=== PATIENT | female | born 1960 | race Caucasian/White ===

== ENCOUNTER → 2018-04-22 16:25 | Outpatient (CLI) | payer MEDICARE, SELFPAY ==
[2016-11-09 15:38] VITALS: BMI 33.8
[2018-04-22 16:47] LABS: International Normalized Ratio 1.7; Prothrombin Time (Protime)PT. 20.4 SECONDS (11.7-14.9)
== END ==
PROVIDERS: Family Provider Family Medicine; PCP Family Medicine; Referring Provider Family Medicine; Visit Provider Family Medicine
DX: I82.90 Acute embolism and thrombosis of unspecified vein (principal)
CPT/HCPCS: 85610

== ENCOUNTER 2019-05-11 13:24 | Emergency (ER) | payer MEDICARE, MEDICAID, SELFPAY ==
[2019-05-11 13:24] VITALS: BP 151/78; PULSE 65; RESP 18; TEMP 35.9; O2SAT 94; BMI 35.9
--- NOTE | 2019-05-11 13:43 | ED.VIS.GEN ---
History of Present Illness Chief Complaint: Abscess Informant: Patient Onset: Weeks Current Severity: Moderate Maximum Severity: Moderate Narrative: Patient presents with abscess to the right axilla for the past 2 weeks. Last Reggie she states she poked it and got blood return. It is still painful and swollen. She is starting to notice a similar lesion in her left axilla. She denies fever or chills. No history of abscesses. She is currently on Coumadin. - Past Medical History (1) COPD (chronic obstructive pulmonary disease) Status: Chronic (2) Hypothyroid Status: Chronic (3) Osteoporosis Status: Chronic (4) VTE (venous thromboembolism) Status: Chronic Past Medical History - Allergies and Home Meds Allergies/Adverse Reactions: Allergies aspirin Allergy (Verified 05/11/19 13:26) Swelling,HIVES,THROAT SWELLING bupropion [From Wellbutrin] Allergy (Verified 05/11/19 13:26) Shortness of breath Primary Care Physician: Stew Berg MD [Primary Care Provider] - Prior records reviewed: Yes Smoking Status: Current every day smoker - Family History Maternal Family History: Reports: Heart Disease Review of Systems General: Denies: Chills, Fever Eyes: Denies: Visual changes - bilaterally ENT: Denies: Bilateral ear pain Cardiovascular: Denies: Chest pain Respiratory: Denies: Dyspnea, Cough Gastrointestinal: Denies: Abdominal pain, Nausea, Vomiting, Diarrhea Skin: Reports: Abscess Neurological: Denies: Headache, Weakness, Parasthesia Hematologic: Reports: Easy bleeding - Secondary to Coumadin. Denies: Easy bruising Allergy: Denies: Uticaria Physical Exam Vital Signs/Narrative: Vital Signs Temp Pulse Resp BP Pulse Ox 05/11/19 13:24 96.7 F L 65 18 151/78 H 94 Inital Vital Signs reviewed: Yes General: Well nourished, Well developed ENT: Moist mucous membranes Neck: Supple Cardiovascular: Regular rate, Regular rhythm Respiratory: No distress, CTA bilaterally Abdomen: Soft, Nontender Skin: - - 1 x 2 cm cutaneous abscess right axilla with fluctuance. No surrounding cellulitis. Small area of folliculitis of the left axilla. Neurological: Alert, Oriented x3 Psychological: Normal affect Diagnostic/Tx/Re-eval - Medical Decision Making Patient was given a dose of Bactrim and Keflex. Right axillary abscess was anesthetized with 1 cc of 1% lidocaine. Stab incision is made with a #11 blade. Loculations were broken up. I did get return of blood with very little pus. She does have a cavity noted. I believe she likely got this to drain on her own. Dressing is placed. She be treated with Bactrim and Keflex at home. She will check her INR again in 3 days. ED Disposition - Plan for ED Patient: Disposition: Home or Assisted Living Diagnosis: Abscess Instructions: ABSCESS, Incision and Drainage Prescriptions: Smz/Tmp Ds [Bactrim Ds] 1 tab PO BID #14 tab Transmission Status: Pending to [facility] Cephalexin [Keflex] 500 mg PO Q12 #14 cap Transmission Status: Pending to [facility] Referrals: Stew Berg MD [Primary Care Provider] - 1 Week if not improving
[2019-05-11] MEDS: Smz/Tmp Ds Tablet 1 TABLET PO (14:01)
[2019-05-11] MEDS: Cephalexin 500 MG Capsule PO (14:01)
[2019-05-11 14:12] VITALS: BP 148/82; PULSE 69; RESP 17; TEMP 36.6; O2SAT 94
[2019-05-11 14:27] VITALS: PULSE 70; RESP 16; O2SAT 94
== END 2019-05-11 14:30 | disposition home or self-care (01) ==
PROVIDERS: Emergency Provider Emergency Medicine; PCP Family Medicine
DX: L02.411 Cutaneous abscess of right axilla (principal); J44.9 Chronic obstructive pulmonary disease, unspecified; E03.9 Hypothyroidism, unspecified; M81.0 Age-related osteoporosis without current pathological fracture; Z86.718 Personal history of other venous thrombosis and embolism; Z79.01 Long term (current) use of anticoagulants; Z79.899 Other long term (current) drug therapy; F17.200 Nicotine dependence, unspecified, uncomplicated
CPT/HCPCS: 10060; 99283

== ENCOUNTER 2019-12-31 15:27 | Emergency (ER) | payer MEDICARE, MEDICAID, SELFPAY ==
[2019-12-31 15:28] VITALS: BP 108/59; PULSE 65; RESP 18; TEMP 36.4; O2SAT 100; BMI 36.5
--- NOTE | 2019-12-31 15:58 | CT_ITS ---
STUDY: CT CERVICAL SPINE WITHOUT CONTRAST REASON FOR EXAM: Female, 59 years old. FELL/HIT FACE/ON THINNERS. Hx of seizures, HTN, asthma and COPD RADIATION DOSAGE (If Supplied By Facility): CTDIvol = ( 18.65 ) mGy, DLP = ( 343.50 ) mGycm TECHNIQUE: High resolution transaxial imaging was performed without contrast material. Sagittal and coronal images were reconstructed. Individualized dose optimization techniques were used for this CT. COMPARISON: None FINDINGS: Normal craniovertebral junction. Normal anterior atlantoaxial articulation. Normal odontoid process. Normal cervical lordosis. Normal vertebral bodies and posterior osseous elements. C2-3: Normal endplates. Normal disc height and morphology. Normal central canal and intervertebral neuroforamina. C3-4: Normal endplates. Normal disc height and morphology. Normal central canal and intervertebral neuroforamina. C4-5: Mild broad disc osteophyte complex produces mild spinal stenosis but no neural foraminal stenosis. C5-6: 2 mm retrolisthesis of C5 on C6 with a mild broad disc osteophyte complex produces mild spinal stenosis and mild bilateral neural foraminal stenosis. C6-7: Normal endplates. Normal disc height and morphology. Normal central canal and intervertebral neuroforamina. C7-T1: Normal endplates. Normal disc height and morphology. Normal central canal and intervertebral neuroforamina. Normal visualized soft tissue structures. CT/Spine Cervical without Contras IMPRESSION: No acute fracture or subluxation. Electronically Signed: Ru Garcia MD at 16:50 EDT Tel , Service support ,
--- NOTE | 2019-12-31 15:58 | CT_ITS ---
STUDY: CT BRAIN WITHOUT CONTRAST REASON FOR EXAM: Female, 59 years old. FELL/HIT FACE/ON THINNERS. Hx of seizures, HTN, asthma and COPD RADIATION DOSAGE (If Supplied By Facility): CTDIvol = ( 44.99 ) mGy, DLP = ( 762.36 ) mGycm TECHNIQUE: Transaxial CT imaging of the brain was performed without administration of intravenous contrast material. Individualized dose optimization techniques were used for this CT. COMPARISON: No relevant priors. FINDINGS: Normal soft tissue structures. Normal calvarium. There is mild cerebral atrophy with widening of the extra-axial spaces and ventricular dilatation. There are areas of decreased attenuation within the white matter tracts of the supratentorial brain, consistent with microvascular disease changes. Normal basal ganglia and thalami. Normal brainstem. Normal cerebellum. There is no intracranial hemorrhage. There are no findings of an acute ischemic infarction. Normal visualized paranasal sinuses. CT/Brain/Head without Contrast IMPRESSION: Chronic involutional changes of the brain. Electronically Signed: Ru Garcia MD at 16:52 EDT Tel , Service support ,
--- NOTE | 2019-12-31 15:58 | CT_ITS ---
STUDY: CT FACIAL BONES WITHOUT CONTRAST REASON FOR EXAM: Female, 59 years old. FELL/HIT FACE/ON THINNERS. Hx of seizures, HTN, asthma and COPD RADIATION DOSAGE (If Supplied By Facility): CTDIvol = ( 29.38 ) mGy, DLP = ( 474.00 ) mGycm TECHNIQUE: The patient was scanned in a multi detector CT scanner. Sagittal and coronal images were reconstructed. Individualized dose optimization techniques were used for this CT. COMPARISON: None. FINDINGS: Normal soft tissue structures. Normal orbital de la rosa and orbital contents. Normal nasal bones and anterior nasal spine. Normal facial bones. There is no demonstrated fracture. Normal visualized paranasal sinuses. CT/Sinus/Facial Bone IMPRESSION: Normal unenhanced CT of the facial bones. Electronically Signed: Ru Garcia MD at 16:54 EDT Tel , Service support ,
--- NOTE | 2019-12-31 16:14 | ED.DCSUM_ITS ---
History of Present Illness Chief Complaint: Fall Informant: Patient Onset: Today Narrative: Patient presents for mechanical fall occurring half hour prior to arrival. Patient states she has unstable right knee with a follow-up pending with specialist this coming month. Reports walking to her neighbors when her knee gave out causing her to fall on the sidewalk. She states she hit her head and may have lost consciousness. Reports headache. Denies nausea and vomiting. Reports pain in right knee. 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 Her last INR check she reports to 3 months ago. Denies visual changes. No neck or back pain. No chest pains. No abdominal pain. Patient able to ambulate, came by private vehicle with her daughter. Prior similar symptoms: Yes Past Medical History - Allergies and Home Meds Allergies/Adverse Reactions: Allergies aspirin Allergy (Verified 12/31/19 15:28) Swelling,HIVES,THROAT SWELLING bupropion [From Wellbutrin] Allergy (Verified 12/31/19 15:28) Shortness of breath Primary Care Physician: Stew Berg MD [Primary Care Provider] - 3-5 Days Past Medical History: - - DVTs right lower extremity, hypertension, hypothyroidism, COPD, emphysema Smoking Status: Current every day smoker - Family History Maternal Family History: Reports: Heart Disease Review of Systems General: Denies: Chills, Fever, Sweats Eyes: Denies: Visual changes - bilaterally, Diplopia ENT: Denies: Rhinorrhea, Sore throat Cardiovascular: Denies: Chest pain, Palpitations Respiratory: Denies: Dyspnea, Cough, Dyspnea on exertion Gastrointestinal: Denies: Abdominal pain, Nausea, Vomiting, Diarrhea, Melena, Hematochezia Genitourinary: Denies: Dysuria, Hematuria, Frequency Musculoskeletal: Reports: Arthralgias, Extremity Pain. Denies: Back pain Skin: Denies: Rash, Wounds Neurological: Reports: Headache. Denies: Weakness, Numbness Physical Exam Vital Signs/Narrative: Vital Signs Temp Pulse Resp BP Pulse Ox 12/31/19 15:28 97.5 F L 65 18 108/59 L 100 Inital Vital Signs reviewed: Yes General: Well nourished, Well developed, No Acute Distress Head: Normocephalic, - - Small right frontal hematoma, abrasion across the nasal bridge, bleeding controlled. No proptosis or entrapment. No hemotympanum. Eyes: Perrl, EOMI ENT: Moist mucous membranes, No rhinorrhea, TM's clear Neck: Supple, Nontender Cardiovascular: Regular rate, Regular rhythm, No murmurs Respiratory: No distress, CTA bilaterally, Chest nontender, - - Symmetric breath sounds. Abdomen: Soft, Nontender, Nondistended, Normal bowel sounds Back: Nontender, Normal Inspection Extremities: No edema, - - Lower extremities negative logroll bilaterally. Right knee with patellar tenderness on palpation, small superficial abrasions noted. Negative varus and valgus. No deformities. Pulses intact distally. Skin: Normal color, No rash Neurological: Alert, Oriented x3, Cranial nerves II-XII grossly intact, Normal Strength, Normal Sensation Psychological: Normal affect, Normal Mood Diagnostic/Tx/Re-eval Abnormal Lab Results 12/31/19 12/31/19 12/31/19 16:20 16:20 16:20 WBC 7.1 RBC 4.95 Hgb 14.8 Hct 46.9 MCV 94.7 MCH 29.9 MCHC 31.6 L RDW Std Deviation 50.9 H RDW Coeff of Nessa 14.6 Plt Count 219 MPV 10.4 Immature Gran % (Auto) 0.000 Neut % (Auto) 50.4 Lymph % (Auto) 40.3 [place] % (Auto) 5.6 Eos % (Auto) 2.9 Baso % (Auto) 0.8 Absolute Neuts (auto) 3.6 Absolute Lymphs (auto) 2.87 Nucleated RBC % 0 PT 19.2 H INR 1.7 APTT 48.2 H Sodium 142 Potassium 4.2 Chloride 111 H Carbon Dioxide 28.0 Anion Gap 3 L BUN 11 Creatinine 1.06 H Estim Creat Clear Calc 40.03 Est GFR (MDRD) Af Amer 68 Est GFR (MDRD) Non-Af 56 L BUN/Creatinine Ratio 10.4 Glucose 107 H Calcium 9.0 - Medical Decision Making Patient on warfarin with head injury. Treated with fentanyl IV for pain symptoms. There is no focal deficits. CT face head and neck ordered pending critical access hospital read. Her right knee x-ray 4 views reviewed by myself shows no fracture or dislocation. INR slightly subtherapeutic 1.7. Basic labs are stable. Reggie wrap to the right knee, abrasion cleaned with bacitracin by nursing, wound care discussed. Concussion precautions. Pending final read prior to discharge. CT results are negative for any acute process. Discharged with outpatient follow-up. Patient use Tylenol as needed for headache symptoms. ED Disposition - Plan for ED Patient: Diagnosis: Concussion with loss of consciousness <= 30 min, Facial contusion, Contusion of right knee Instructions: ED Concussion, ED SOFT TISSUE CONTUSION, ED CONTUSION Face No Wake Up] Referrals: Stew Berg MD [Primary Care Provider] - 3-5 Days Additional Instructions: INR 1.7.
[2019-12-31] MEDS: fentaNYL 100 MCG/2 ML Ampul 25 MCG IV (16:24)
--- NOTE | 2019-12-31 16:35 | RAD_ITS ---
STUDY: X-RAY - RIGHT KNEE REASON FOR EXAM: Female, 59 years old. FALL, PAIN AND WEAKNESS IN KNEE TECHNIQUE: 4 view(s) of the knee. COMPARISON: 07/02/2016 FINDINGS: Normal visualized distal femur. Normal visualized proximal tibia and fibula. Normal proximal tibiofibular articulation. Normal medial femorotibial compartment. Normal lateral femorotibial compartment. Normal patellofemoral articulation. The soft tissue structures are unremarkable. RAD/Knee 4 or More Views IMPRESSION: Normal x-ray examination of the knee. Electronically Signed: Ru Garcia MD at 16:55 EDT Tel , Service support ,
[2019-12-31 16:41] LABS: Absolute Lymphocyte Count 2.87 X10^3/uL (0.83-4.51); Absolute Neutrophil Count 3.6 X10^3/uL (2.0-7.7); Basophil# 0.06 X10^3/uL; Basophil% 0.8 % (0-1); Eosinophil# 0.21 X10^3/uL; Eosinophils% 2.9 % (0-5); Hematocrit 46.9 % (37-47); Hemoglobin 14.8 g/dL (12.0-15.0); Lymphocyte # 2.87 X10^3/ul (4.0); Lymphocyte % 40.3 % (19-41); Mean Corp Hgb Conc 31.6 g/dL (32-36); Mean Corpuscular Hgb 29.9 pg (27.0-32.0); Mean Corpuscular Volume 94.7 fL (81-99); Mean Platelet Vol. 10.4 fl (6.2-12.0); Monocyte% 5.6 % (0-10); NRBC Flagged by Analyzer 0 % (0-5); Neutrophil # 3.58 X10^3/uL (2.7-7.7); Neutrophil % 50.4 % (47-70); Platelet Count 219 K/mm3 (150-450); RBC Distribution Width CV 14.6 % (11.6-14.6); RBC Distribution Width SD 50.9 fl (35.1-43.9); Red Blood Count 4.95 M/mm3 (4.2-5.4); White Blood Count 7.1 K/mm3 (4.4-11.0)
[2019-12-31 16:42] LABS: Anion Gap 3 (5-15); BUN 11 mg/dL (7-18); BUN/Creat Ratio 10.4 RATIO (10-20); Chloride 111 mmol/L (98-107); Creatinine, Serum 1.06 mg/dL (0.55-1.02); EST Glomerular Filtration Rate 56 mL/min (>60); Est Glom Filt Rate - Afr Amer 68 mL/min (>60); Estimated Creatinine Clearance 40.03 ml/min; Glucose 107 mg/dL (74-106); Potassium 4.2 mmol/L (3.5-5.1); Sodium Level 142 mmol/L (136-145)
[2019-12-31 16:48] LABS: International Normalized Ratio 1.7; Partial Thromboplast Time 48.2 Seconds (24.1-36.2); Prothrombin Time (Protime)PT. 19.2 SECONDS (11.7-14.9)
[2019-12-31 17:19] VITALS: BP 142/66; PULSE 74; RESP 15; O2SAT 98
[2019-12-31] MEDS: BACITRACIN 15 GM Tube 1 APPLIC TOPICAL (17:21)
== END 2019-12-31 17:21 | disposition home or self-care (01) ==
PROVIDERS: Emergency Provider Emergency Medicine; PCP Family Medicine
DX: S06.0X1A Concussion with loss of consciousness of 30 minutes or less, initial encounter (principal); S00.83XA Contusion of other part of head, initial encounter; S00.31XA Abrasion of nose, initial encounter; S80.01XA Contusion of right knee, initial encounter; S80.211A Abrasion, right knee, initial encounter; W19.XXXA Unspecified fall, initial encounter; Y93.9 Activity, unspecified; Y92.9 Unspecified place or not applicable; I10 Essential (primary) hypertension; E03.9 Hypothyroidism, unspecified; J44.9 Chronic obstructive pulmonary disease, unspecified; Z86.718 Personal history of other venous thrombosis and embolism; Z79.01 Long term (current) use of anticoagulants; Z79.899 Other long term (current) drug therapy; F17.200 Nicotine dependence, unspecified, uncomplicated
CPT/HCPCS: 70450; 70486; 72125; 73564; 80048; 85025; 85610; 85730; 96374; 99283; A4216

== ENCOUNTER 2020-01-25 14:12 | Emergency (ER) | payer MEDICARE, MEDICAID, SELFPAY ==
[2020-01-25 14:13] VITALS: BP 152/79; PULSE 59; RESP 16; TEMP 36.7; O2SAT 100; BMI 35.9
--- NOTE | 2020-01-25 15:48 | EKG12_ITS ---
Test Reason : DIZZINESS Blood Pressure : / mmHG Vent. Rate : 059 BPM Atrial Rate : 059 BPM P-R Int : 180 ms QRS Dur : 072 ms QT Int : 436 ms P-R-T Axes : 070 064 060 degrees QTc Int : 431 ms Sinus bradycardia Otherwise normal ECG Confirmed by DHARA CATALAN, JOAQUÍN ([id number]), clinical editor HANDY PEACOCK ([id number]) on 01/27/2020 10:47:31 AM Referred By: OTIS Confirmed By:JOAQUÍN JULES MD
--- NOTE | 2020-01-25 15:49 | ED.VIS.GEN ---
History of Present Illness Chief Complaint: Dizziness Informant: Patient Onset: Yesterday Current Severity: Moderate Maximum Severity: Moderate Narrative: Patient presents with lightheadedness and dizziness that started yesterday. She states she also has noticed her sense of smell was off yesterday. For the past couple of days she has had nausea with vomiting. She also reports urinary frequency but no dysuria. She denies fever or chills. She does report increased shortness of breath over baseline. She does have a history of emphysema and COPD. - Past Medical History (1) COPD (chronic obstructive pulmonary disease) Status: Chronic (2) Hypothyroid Status: Chronic (3) VTE (venous thromboembolism) Status: Chronic Past Medical History - Allergies and Home Meds Allergies/Adverse Reactions: Allergies aspirin Allergy (Verified 01/25/20 14:16) Swelling,HIVES,THROAT SWELLING bee venom protein (honey bee) Allergy (Verified 01/25/20 14:16) Hives bupropion [From Wellbutrin] Allergy (Verified 01/25/20 14:16) Shortness of breath Primary Care Physician: Stew Berg MD [Primary Care Provider] - 1 Week if not improving Prior records reviewed: Yes Smoking Status: Current every day smoker - Family History Maternal Family History: Reports: Heart Disease Review of Systems General: Denies: Chills, Fever Eyes: Denies: Visual changes - bilaterally ENT: Reports: - - Altered sense of smell. Denies: Bilateral ear pain Cardiovascular: Denies: Chest pain Respiratory: Reports: Dyspnea, Cough Gastrointestinal: Reports: Nausea, Vomiting. Denies: Abdominal pain Genitourinary: Reports: Frequency. Denies: Dysuria Musculoskeletal: Denies: Extremity Pain Skin: Denies: Rash Neurological: Denies: Headache Hematologic: Denies: Easy bruising, Easy bleeding Allergy: Denies: Uticaria Physical Exam Vital Signs/Narrative: Vital Signs Temp Pulse Resp BP Pulse Ox 01/25/20 14:13 98.1 F 59 L 16 152/79 H 100 Inital Vital Signs reviewed: Yes General: Well nourished, Well developed Head: Normocephalic ENT: Moist mucous membranes Neck: Supple Cardiovascular: Regular rate, Regular rhythm Respiratory: No distress, CTA bilaterally Abdomen: Soft, Nontender, Normal bowel sounds Extremities: Nontender Skin: Normal color Neurological: Alert, Oriented x3 Psychological: Normal affect Diagnostic/Tx/Re-eval Impressions Chest X-Ray 01/25/20 16:30 IMPRESSION: Normal x-ray examination of the chest. Electronically Signed: Heather Gordon, at 17:21 EST Tel , Service support , 01/25/20 16:30 Chest 1 View (Portable) [RAD] Stat Laboratory Results 01/25/20 01/25/20 01/25/20 16:00 16:00 16:00 WBC 7.6 RBC 4.93 Hgb 14.7 Hct 45.4 MCV 92.1 MCH 29.8 MCHC 32.4 RDW Std Deviation 45.7 H RDW Coeff of Nessa 13.4 Plt Count 196 MPV 10.5 Immature Gran % (Auto) 0.100 Neut % (Auto) 49.9 Lymph % (Auto) 40.0 [place] % (Auto) 6.2 Eos % (Auto) 2.9 Baso % (Auto) 0.9 Absolute Neuts (auto) 3.8 Absolute Lymphs (auto) 3.02 Nucleated RBC % 0 PT 23.5 H INR 2.2 Sodium 138 Potassium 4.5 Chloride 106 Carbon Dioxide 27.0 Anion Gap 5 BUN 14 Creatinine 0.95 Estim Creat Clear Calc 44.67 Est GFR (MDRD) Af Amer 77 Est GFR (MDRD) Non-Af 63 BUN/Creatinine Ratio 14.7 Glucose 80 Calcium 8.9 Urine Color Urine Clarity Urine pH Ur Specific [place] Urine Protein Urine Glucose (UA) Urine Ketones Urine Occult Blood Urine Nitrite Urine Bilirubin Urine Urobilinogen Ur Leukocyte Esterase Urine RBC Urine WBC Ur Squamous Epith Cells Urine Bacteria Urine Mucus 01/25/20 17:07 WBC RBC Hgb Hct MCV MCH MCHC RDW Std Deviation RDW Coeff of Nessa Plt Count MPV Immature Gran % (Auto) Neut % (Auto) Lymph % (Auto) [place] % (Auto) Eos % (Auto) Baso % (Auto) Absolute Neuts (auto) Absolute Lymphs (auto) Nucleated RBC % PT INR Sodium Potassium Chloride Carbon Dioxide Anion Gap BUN Creatinine Estim Creat Clear Calc Est GFR (MDRD) Af Amer Est GFR (MDRD) Non-Af BUN/Creatinine Ratio Glucose Calcium Urine Color Straw Urine Clarity Sl Cldy Urine pH 6.0 Ur Specific [place] 1.010 Urine Protein Negative Urine Glucose (UA) Normal Urine Ketones Negative Urine Occult Blood 10 H Urine Nitrite Negative Urine Bilirubin Negative Urine Urobilinogen Normal Ur Leukocyte Esterase 500 H Urine RBC 0 SEEN Urine WBC 10-25 SEEN Ur Squamous Epith Cells 0-5 SEEN Urine Bacteria 1+ Urine Mucus 0 SEEN - EKG Initial EKG Interpretation: Sinus Bradycardia - Sinus bradycardia 59 bpm. No acute ischemia. - Medical Decision Making Test results discussed with the patient. She does have evidence of UTI and is given Bactrim. She will get a prescription for the same. Covid test was sent. If this is positive she will be notified. She will quarantine in the meantime. ED Disposition - Plan for ED Patient: Disposition: Home or Assisted Living Diagnosis: UTI (urinary tract infection), Viral syndrome Instructions: ED CYSTITIS Female Adult, ED Viral Syndrome Prescriptions: Smz/Tmp Ds [Bactrim Ds] 1 tab PO BID #10 tab Transmission Status: Pending to [facility] Referrals: Stew Berg MD [Primary Care Provider] - 1 Week if not improving
[2020-01-25 16:14] VITALS: BP 133/69; PULSE 59; RESP 19; TEMP 36.4; O2SAT 99
[2020-01-25] MEDS: Ondansetron 4 MG/2 ML Vial IV (16:22)
[2020-01-25 16:24] LABS: Absolute Lymphocyte Count 3.02 X10^3/uL (0.83-4.51); Absolute Neutrophil Count 3.8 X10^3/uL (2.0-7.7); Basophil# 0.07 X10^3/uL; Basophil% 0.9 % (0-1); Eosinophil# 0.22 X10^3/uL; Eosinophils% 2.9 % (0-5); Hematocrit 45.4 % (37-47); Hemoglobin 14.7 g/dL (12.0-15.0); Lymphocyte # 3.02 X10^3/ul (4.0); Mean Corp Hgb Conc 32.4 g/dL (32-36); Mean Corpuscular Hgb 29.8 pg (27.0-32.0); Mean Corpuscular Volume 92.1 fL (81-99); Mean Platelet Vol. 10.5 fl (6.2-12.0); Monocyte# 0.47 X10^3/uL; Monocyte% 6.2 % (0-10); NRBC Flagged by Analyzer 0 % (0-5); Neutrophil # 3.76 X10^3/uL (2.7-7.7); Neutrophil % 49.9 % (47-70); Platelet Count 196 K/mm3 (150-450); RBC Distribution Width CV 13.4 % (11.6-14.6); RBC Distribution Width SD 45.7 fl (35.1-43.9); Red Blood Count 4.93 M/mm3 (4.2-5.4); White Blood Count 7.6 K/mm3 (4.4-11.0)
--- NOTE | 2020-01-25 16:30 | RAD_ITS ---
STUDY: X-RAY CHEST REASON FOR EXAM: Female, 59 years old. DIZZINESS, NAUSEA X1 MONTH, EMESIS X1 TODAY, TASTE BLOOD IN MOUTH. INC SOB. TECHNIQUE: Frontal view of the chest COMPARISON: 15 February 2016 FINDINGS: The lungs are clear and expanded. There is no demonstrated pleural abnormality. Normal size heart. Normal mediastinum and vilma. Normal visualized pulmonary arteries. Normal visualized aortic arch and descending thoracic aorta. Normal visualized thoracic spine. Normal visualized ribs, clavicles, and shoulders. There is no demonstrated abnormality of the visualized soft tissue structures of the upper abdomen. RAD/Chest 1 View (Portable) IMPRESSION: Normal x-ray examination of the chest. Electronically Signed: Heather Gordon, at 17:21 EST Tel , Service support ,
[2020-01-25 16:33] LABS: International Normalized Ratio 2.2; Prothrombin Time (Protime)PT. 23.5 SECONDS (11.7-14.9)
[2020-01-25 16:44] LABS: Anion Gap 5 (5-15); BUN 14 mg/dL (7-18); BUN/Creat Ratio 14.7 RATIO (10-20); Calcium,Total 8.9 mg/dL (8.5-10.1); Chloride 106 mmol/L (98-107); Creatinine, Serum 0.95 mg/dL (0.55-1.02); EST Glomerular Filtration Rate 63 mL/min (>60); Est Glom Filt Rate - Afr Amer 77 mL/min (>60); Estimated Creatinine Clearance 44.67 ml/min; Glucose 80 mg/dL (74-106); Potassium 4.5 mmol/L (3.5-5.1); Sodium Level 138 mmol/L (136-145)
[2020-01-25 17:16] VITALS: BP 109/59; PULSE 60; RESP 14; TEMP 36.6; O2SAT 97
[2020-01-25 17:24] LABS: Mucous, Urine 0 SEEN /hpf (<or=2+); Red Blood Cells-Urine 0 SEEN /hpf (0-5)
[2020-01-25 17:35] LABS: Color, Urine Straw (Yellow); Glucose, Dipstick Normal (Normal); Ketone-Dipstick Negative (Negative); Leukocyte Esterase-Dipstick 500 /ul (Negative); Nitrite-Dipstick Negative (Negative); Occult Blood-Urine 10 /ul (Negative); Protein-Dipstick Negative (Negative); Urine Bilirubin Dipstick Negative (Negative); Urine Urobilinogen Normal (Normal)
[2020-01-25 17:44] LABS: Bacteria 1+ /hpf (None Seen); Squamous Epithelial Cells - UA 0-5 SEEN /hpf (5-10); White Blood Cells 10-25 SEEN /hpf (0-5)
[2020-01-25 17:45] LABS: Urine Clarity Sl Cldy (Clear)
[2020-01-25 18:25] VITALS: BP 107/60; PULSE 58; RESP 14; O2SAT 98
[2020-01-25] MEDS: Smz/Tmp Ds Tablet 1 TABLET PO (18:30)
== END 2020-01-25 18:55 | disposition home or self-care (01) ==
PROVIDERS: Emergency Provider Emergency Medicine; PCP Family Medicine
DX: N39.0 Urinary tract infection, site not specified (principal); B34.9 Viral infection, unspecified; E03.9 Hypothyroidism, unspecified; J44.9 Chronic obstructive pulmonary disease, unspecified; Z86.718 Personal history of other venous thrombosis and embolism; Z79.01 Long term (current) use of anticoagulants; Z79.899 Other long term (current) drug therapy; F17.200 Nicotine dependence, unspecified, uncomplicated
CPT/HCPCS: 71045; 80048; 81001; 85025; 85610; 87635; 93005; 96361; 96374; 99285; J2405; U0002

== ENCOUNTER 2020-06-04 18:08 | Emergency (ER) | payer MEDICARE, MEDICAID, SELFPAY ==
[2020-06-04 18:09] VITALS: BP 147/87; PULSE 63; RESP 18; TEMP 36; O2SAT 98; BMI 34.6
--- NOTE | 2020-06-04 18:42 | CT_ITS ---
STUDY: CTA CHEST REASON FOR EXAM: Female, 60 years old. Hemoptysis RADIATION DOSAGE (If Supplied By Facility): CTDIvol = ( 11.20 ) mGy, DLP = ( 414.73 ) mGycm TECHNIQUE: The examination was performed with the intravenous administration of IV 100mL Isovue-370. Post-processing of the angiographic images was performed, with multiplanar reformation and 3D reconstruction. Individualized dose optimization techniques were used for this CT. COMPARISON: None. FINDINGS: Normal enhancement of the main pulmonary artery and right and left pulmonary arteries. Normal enhancement of the bilateral peripheral pulmonary arteries. There is no demonstrated pulmonary embolism. Minor atherosclerotic changes of the aorta without evidence for aneurysm There is no demonstrated aortic dissection. Normal heart and pericardium. Normal mediastinum. Normal hilar regions. Normal visualized trachea and bronchi. The lungs are well expanded. Minor atelectasis within the dependent portion of the lower lobes. No focal infiltration or pulmonary nodule Normal pleura. Normal chest wall structures. Dorsal spine demonstrates mild degenerative change Liver is fatty infiltrated. 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 Cholelithiasis without evidence for acute cholecystitis CT/CTA Chest W/WO Contrast IMPRESSION: Minor atelectasis within the dependent portion of the lungs. No focal infiltration.. No evidence for pulmonary embolus Electronically Signed: Amrit Cunha MD at 20:31 EDT , Service support ,
[2020-06-04 18:43] VITALS: O2SAT 96
--- NOTE | 2020-06-04 18:43 | EKG12_ITS ---
Test Reason : CHEST PAIN Blood Pressure : / mmHG Vent. Rate : 064 BPM Atrial Rate : 064 BPM P-R Int : 176 ms QRS Dur : 068 ms QT Int : 394 ms P-R-T Axes : 081 079 067 degrees QTc Int : 406 ms Normal sinus rhythm Low voltage QRS Borderline ECG Confirmed by DAHRA CATALAN, JOAQUÍN ([id number]), video tape editor ZEHRA SOTELO ([id number]) on 06/08/2020 7:47:13 AM Referred By: SWAG Confirmed By:JOAQUÍN JULES MD
[2020-06-04 19:04] LABS: Absolute Neutrophil Count 4.3 X10^3/uL (2.0-7.7); Basophil# 0.06 X10^3/uL; Basophil% 0.8 % (0-1); Eosinophil# 0.19 X10^3/uL; Eosinophils% 2.4 % (0-5); Hematocrit 42.7 % (37-47); Hemoglobin 13.9 g/dL (12.0-15.0); Lymphocyte % 35.8 % (19-41); Mean Corp Hgb Conc 32.6 g/dL (32-36); Mean Corpuscular Hgb 30.4 pg (27.0-32.0); Mean Corpuscular Volume 93.4 fL (81-99); Mean Platelet Vol. 9.9 fl (6.2-12.0); Monocyte# 0.48 X10^3/uL; Monocyte% 6.1 % (0-10); NRBC Flagged by Analyzer 0 % (0-5); Neutrophil # 4.26 X10^3/uL (2.7-7.7); Neutrophil % 54.5 % (47-70); Platelet Count 213 K/mm3 (150-450); RBC Distribution Width CV 13.2 % (11.6-14.6); RBC Distribution Width SD 45.1 fl (35.1-43.9); Red Blood Count 4.57 M/mm3 (4.2-5.4); White Blood Count 7.8 K/mm3 (4.4-11.0)
--- NOTE | 2020-06-04 19:07 | ED.VISSUMM ---
- ER Visit Summary Date of Service: 06/04/20 Chief Complaint: Cough chest pain History of Present Illness: The patient is a 60 F who presents with cough and chest pain that has been getting worse over the past couple days. Patient describes the pain is burning. Patient states it is over the right side of her chest. Patient states nothing makes it better or worse. Patient admits to a cough with some dark green sputum. Patient also noted some occasional blood in her sputum. Patient also admits to some lightheadedness and palpitations. Patient denies any diaphoresis. Patient admits to nausea but denies any vomiting. Patient admits to subjective chills but denies any fevers. Patient also admits to mild headache. Patient is a smoker. Patient has a history of DVT and is on Coumadin. Physical Examination: Vital signs are stable. Patient is afebrile. Patient is in no acute distress. Oral mucosa is pink and moist. Neck is supple. Trachea is midline. There is no JVD. Heart was regular rate and rhythm. Lungs are clear and equal bilaterally. There is good respiratory effort. Abdomen is soft. Bowel sounds are normal. There is no tenderness. Extremities are intact. There is no calf tenderness or edema. Cranial nerves II through XII are intact. There are no focal motor or sensory deficits noted. Test Results: EKG was obtained. On my interpretation, it showed a normal sinus rhythm with a rate of 64. HI interval, QRS interval, and QTc intervals were all normal. [place] was normal. There are no acute ST or T wave changes. CBC and basic metabolic profile were obtained and were essentially within normal limits. PT with INR was slightly supratherapeutic at 3.6. PTT was 87.4. Troponin was normal. COVID-19 rapid antigen was obtained and was negative. CTA of the chest was obtained. There is no evidence of pulmonary embolism. There is no mass noted. There is some atelectasis in the lower lobes. There is no acute infiltrate. This was interpreted by the radiologist and reviewed by myself. Emergency Department Course and Treatment: Patient was not given any aspirin due to her allergy. Patient was advised of her findings. Patient was feeling better on reevaluation. Patient was instructed to hold her dose of Coumadin tomorrow and then restart on Saturday. Patient was instructed to follow-up with her primary care physician in 5 to 7 days. Patient understood and was agreeable with the plan. All questions were answered. Disposition: Discharge home Impression: 1. Bronchitis 2. Hemoptysis This note was generated with [employer] dictation software. It may contain incorrect words, spelling, and punctuation that were not noted in review of the chart prior to signing ED Disposition - Plan for ED Patient: Disposition: Home or Assisted Living Diagnosis: Bronchitis, Hemoptysis, unspecified Diagnosis: (Ruled Out): Narcotic overdose, Forehead laceration, Chin laceration Instructions: ED Bronchitis, No Antibiotic (Adult), ED Hemoptysis Referrals: Stew Berg MD [Primary Care Provider] - 5-7 Days
[2020-06-04 19:23] LABS: Anion Gap 4 (5-15); BUN 25 mg/dL (7-18); BUN/Creat Ratio 25.1 RATIO (10-20); Calcium,Total 9.2 mg/dL (8.5-10.1); Chloride 108 mmol/L (98-107); EST Glomerular Filtration Rate 60 mL/min (>60); Est Glom Filt Rate - Afr Amer 73 mL/min (>60); Glucose 84 mg/dL (74-106); Potassium 3.9 mmol/L (3.5-5.1); Sodium Level 139 mmol/L (136-145)
[2020-06-04 19:25] LABS: International Normalized Ratio 3.6; Prothrombin Time (Protime)PT. 34.9 SECONDS (11.7-14.9)
[2020-06-04 19:27] LABS: Partial Thromboplast Time 87.4 Seconds (24.1-36.2)
[2020-06-04 20:24] VITALS: BP 133/68; PULSE 59; RESP 16; O2SAT 96
[2020-06-04 20:53] VITALS: BP 133/68
== END 2020-06-04 20:56 | disposition home or self-care (01) ==
LOC: ED 19:17
PROVIDERS: Emergency Provider Emergency Medicine; PCP Family Medicine
DX: J40 Bronchitis, not specified as acute or chronic (principal); J44.0 Chronic obstructive pulmonary disease with (acute) lower respiratory infection; R04.2 Hemoptysis; J98.11 Atelectasis; R79.1 Abnormal coagulation profile; E66.9 Obesity, unspecified; I10 Essential (primary) hypertension; M81.0 Age-related osteoporosis without current pathological fracture; Z86.718 Personal history of other venous thrombosis and embolism; Z85.71 Personal history of Hodgkin lymphoma; Z79.01 Long term (current) use of anticoagulants; Z79.899 Other long term (current) drug therapy; F17.200 Nicotine dependence, unspecified, uncomplicated
CPT/HCPCS: 71275; 80048; 84484; 85025; 85610; 85730; 87426; 93005; 99284; Q9967; A4216

== ENCOUNTER 2020-06-07 12:52 | Observation (INO) | payer MEDICARE, MEDICAID, SELFPAY ==
[2020-06-07] VITALS (15 sets, daily range): BP systolic 103–136; BP diastolic 55–76; PULSE 63–89; RESP 13–19; TEMP 36.4–37.1; O2SAT 95–98; BMI 33.6; BMI 33.5
--- NOTE | 2020-06-07 13:11 | EKG12_ITS ---
Test Reason : STROKE Blood Pressure : / mmHG Vent. Rate : 078 BPM Atrial Rate : 078 BPM P-R Int : 158 ms QRS Dur : 064 ms QT Int : 364 ms P-R-T Axes : 077 068 064 degrees QTc Int : 414 ms Normal sinus rhythm Low voltage QRS Borderline ECG Confirmed by VALENTINA CATALAN, LEÓN ([id number]), desk editor HANDY PEACOCK ([id number]) on 06/10/2020 2:55:15 PM Referred By: ARLET Confirmed By:LANDEN MONTGOMERY MD
--- NOTE | 2020-06-07 13:11 | CT_ITS ---
STUDY: CT BRAIN WITHOUT CONTRAST REASON FOR EXAM: Female, 60 years old. Confusion RADIATION DOSAGE (If Supplied By Facility): CTDIvol = ( 44.99 ) mGy, DLP = ( 779.24 ) mGycm TECHNIQUE: Transaxial CT imaging of the brain was performed without administration of intravenous contrast material. Individualized dose optimization techniques were used for this CT. COMPARISON: 12/31/2019 FINDINGS: Normal soft tissue structures. Normal calvarium. Normal size ventricles and extra-axial spaces for the patient''s age. Normal white matter tracts of the cerebral hemispheres. Normal basal ganglia and thalami. Normal brainstem. Normal cerebellum. There is no intracranial hemorrhage. There are no findings of an acute ischemic infarction. Normal visualized paranasal sinuses. CT/Brain/Head without Contrast IMPRESSION: Chronic involutional changes of the brain. No acute hemorrhage or significant interval change Electronically Signed: Onesimo Avery MD at 13:49 EDT , Service support ,
--- NOTE | 2020-06-07 13:15 | ED.VISSUMM ---
- ER Visit Summary Date of Service: 06/07/20 Chief Complaint: Confusion and headache History of Present Illness: The patient is a 60 F who presents with confusion and headache that began today. Patient states that she woke up with her headache today. Patient states it was stabbing and generalized. Patient states it was severe. Patient is confused about the day and month. Patient does not think she took her medications today. Patient does not remember much about this morning. Patient denies any chest pain or shortness of breath. Patient states she did have an episode of nausea and vomiting. Patient denies any hematemesis or coffee-ground emesis. Patient states her emesis was stomach contents. Patient denies any dysuria or hematuria. Patient denies any fevers or chills. Physical Examination: Vital signs are stable. Patient is afebrile. Patient is in no acute distress. Patient is awake, alert, and oriented to person, place, and year. Patient is not oriented to month or date. Cranial nerves II through XII are intact. Strength is 5/5 bilaterally in the upper and lower extremities. There are no sensory deficits noted. Pupils are equal, round, and reactive to light bilaterally. Extraocular muscles are intact. There are no visual field deficits noted. Neck is supple. Trachea is midline. There is no JVD or lymphadenopathy. Heart was regular rate and rhythm. Lungs are clear and equal bilaterally. Abdomen is soft. Bowel sounds are normal. There is no tenderness. Extremities are intact. There is no calf tenderness or edema. Test Results: EKG was obtained. On my interpretation, it showed a normal sinus rhythm with a rate of 78. AR interval, QRS interval, and QTc intervals were all normal. Destrehan was normal. There are no acute ST or T wave changes. CT scan of the brain was obtained. There is no acute intracranial abnormality. There is no bleeding noted. This was interpreted by the radiologist and reviewed by myself. Portable chest x-ray was ordered and is pending. CBC and comprehensive metabolic profile were within normal limits. Troponin was normal. Lactate was normal. COVID-19 rapid antigen was obtained and was negative. PT with INR and PTT were obtained and are pending. Urinalysis was ordered and is pending. CTA of the head was ordered and is pending. Emergency Department Course and Treatment: Patient was given IV fluids. Patient was given Tylenol. Disposition: Care of the patient was turned over to the oncoming physician. Patient will likely need to be admitted to the hospital. Impression: 1. Confusion This note was generated with [employer] dictation software. It may contain incorrect words, spelling, and punctuation that were not noted in review of the chart prior to signing ED Disposition - Plan for ED Patient: Referrals: Stew Berg MD [Primary Care Provider] -
[2020-06-07 13:45] LABS: Absolute Neutrophil Count 5.8 X10^3/uL (2.0-7.7); Basophil% 1.2 % (0-1); Eosinophil# 0.15 X10^3/uL; Eosinophils% 1.8 % (0-5); Hemoglobin 15.2 g/dL (12.0-15.0); Lymphocyte % 22.7 % (19-41); Mean Corpuscular Hgb 29.6 pg (27.0-32.0); Mean Corpuscular Volume 95.3 fL (81-99); Mean Platelet Vol. 9.9 fl (6.2-12.0); Monocyte# 0.43 X10^3/uL; Monocyte% 5.1 % (0-10); NRBC Flagged by Analyzer 0 % (0-5); Neutrophil # 5.76 X10^3/uL (2.7-7.7); Neutrophil % 68.8 % (47-70); Platelet Count 220 K/mm3 (150-450); RBC Distribution Width CV 13.5 % (11.6-14.6); RBC Distribution Width SD 47.9 fl (35.1-43.9); Red Blood Count 5.14 M/mm3 (4.2-5.4); White Blood Count 8.4 K/mm3 (4.4-11.0)
[2020-06-07 14:04] LABS: ALB/GLOB Ratio 0.8 RATIO (0.9-2.4); AST(SGOT) 36 U/L (15-37); Alanine Aminotransfer ALT/SGPT 23 U/L (13-56); Albumin, Serum 3.7 g/dL (3.2-5.0); Alkaline Phosphatase 107 U/L (45-117); Anion Gap 4 (5-15); BUN 17 mg/dL (7-18); BUN/Creat Ratio 17.7 RATIO (10-20); Calcium,Total 9.3 mg/dL (8.5-10.1); Chloride 107 mmol/L (98-107); Creatinine, Serum 0.96 mg/dL (0.55-1.02); EST Glomerular Filtration Rate 63 mL/min (>60); Est Glom Filt Rate - Afr Amer 76 mL/min (>60); Estimated Creatinine Clearance 48.06 ml/min; Globulin 4.4 g/dL (2.2-4.2); Glucose 100 mg/dL (74-106); Protein, Total 8.1 g/dL (6.4-8.2); Sodium Level 138 mmol/L (136-145)
[2020-06-07 14:07] LABS: Lactic Acid 0.9 mmol/L (0.4-1.9)
--- NOTE | 2020-06-07 14:12 | CT_ITS ---
STUDY: CTA OF THE BRAIN REASON FOR EXAM: Female, 60 years old. Headache RADIATION DOSAGE (If Supplied By Facility): CTDIvol = ( 17.32 ) mGy, DLP = ( 396.38 ) mGycm TECHNIQUE: CT angiography was performed with a multi-detector CT scanner. Data acquisition was obtained from the skull base through the vertex following intravenous administration of IV 100mL [id number]-[id number]. MIP images were reconstructed from the axial data set. Post-processing of the angiographic images was performed, with multiplanar reformation and 3D reconstruction. Individualized dose optimization techniques were used for this CT. COMPARISON: None. FINDINGS: Normal bilateral petrous carotid arteries. Normal right cavernous carotid artery with a normal supraclinoid bifurcation. Normal left cavernous carotid artery with a normal supraclinoid bifurcation. Normal right A1 segments of the anterior cerebral artery. Normal left A1 segments of the anterior cerebral artery. Normal intact anterior communicating artery (ACOM). Normal bilateral A2 segments of the anterior cerebral arteries. Normal right M1 and M2 segments of the middle cerebral arteries, with a normal M1 bifurcation. Normal left M1 and M2 segments of the middle cerebral arteries, with a normal M1 bifurcation. Normal right posterior communicating artery (PCOM). Normal left posterior communicating artery (PCOM). Normal bilateral vertebral arteries. Normal basilar artery with a normal basilar bifurcation. The visualized bilateral superior cerebellar (SCA) arteries are normal. Normal bilateral P1, P2 and visualized P3 segments of the posterior cerebral arteries. There is no demonstrated aneurysm of the eagle of [place]. There is no demonstrated abnormality of the visualized brain. CT/CTA Head W/WO Contrast IMPRESSION: Normal eagle of [place] without a demonstrated aneurysm or hemodynamically significant stenosis. Electronically Signed: Onesimo Avery MD at 15:12 EDT , Service support ,
[2020-06-07] MEDS: Acetaminophen 500 MG Tablet 1000 MG PO (14:19)
[2020-06-07 14:23] LABS: Mucous, Urine 0 SEEN /hpf (<or=2+); Red Blood Cells-Urine 0 SEEN /hpf (0-5)
[2020-06-07 14:24] LABS: Color, Urine Yellow (Yellow); Glucose, Dipstick Normal (Normal); Ketone-Dipstick Negative (Negative); Leukocyte Esterase-Dipstick 25 /ul (Negative); Nitrite-Dipstick Negative (Negative); Occult Blood-Urine Negative /ul (Negative); Protein-Dipstick Negative (Negative); Urine Bilirubin Dipstick Negative (Negative); Urine Clarity Clear (Clear); Urine Urobilinogen Normal (Normal)
[2020-06-07 14:27] LABS: International Normalized Ratio 2.6; Partial Thromboplast Time 77.5 Seconds (24.1-36.2); Prothrombin Time (Protime)PT. 26.9 SECONDS (11.7-14.9)
[2020-06-07 14:32] LABS: Bacteria RARE /hpf (None Seen); Squamous Epithelial Cells - UA 0-5 SEEN /hpf (5-10); White Blood Cells 0-5 SEEN /hpf (0-5)
--- NOTE | 2020-06-07 14:40 | RAD_ITS ---
STUDY: X-RAY CHEST REASON FOR EXAM: Female, 60 years old. Cough TECHNIQUE: Single AP portable view of the chest. COMPARISON: 01/25/2020 FINDINGS: EKG leads overlie the chest The lungs are clear and expanded. There is no demonstrated pleural abnormality. Normal size heart. Normal mediastinum and vilma. Normal visualized pulmonary arteries. Normal visualized aortic arch and descending thoracic aorta. Normal visualized thoracic spine. Normal visualized ribs, clavicles, and shoulders. There is no demonstrated abnormality of the visualized soft tissue structures of the upper abdomen. RAD/Chest 1 View (Portable) IMPRESSION: Normal x-ray examination of the chest. Electronically Signed: Onesimo Avery MD at 14:53 EDT , Service support ,
--- NOTE | 2020-06-07 16:31 | PCM.HP.STD ---
Problem List (1) Headache Status: Acute (2) Osteoporosis Status: Chronic (3) Abdominal wall hematoma Status: Chronic Qualifiers: (4) Hypothyroid Status: Chronic Qualifiers: (5) COPD (chronic obstructive pulmonary disease) Status: Chronic Qualifiers: (6) VTE (venous thromboembolism) Status: Chronic (7) Chest pain Status: Acute Qualifiers: (8) Confusion Status: Acute History of Present Illness Date of Admission: 06/07/20 Chief Complaint: Headache and confusion This patient is a 60-year-old female who presents to the ED at [facility] on 06/07/2020 with a chief complaint of confusion and headache that began today. Patient states that this morning she woke up with a generalized stabbing headache, that progressed in severity throughout the day. Patient states that around noon today she began to feel nauseous and went outside to vomit at which point the headache progressed to a stabbing type headache. Patient is unclear around the events of this nausea/vomiting and headache, she is unclear about whether she may have had a loss of consciousness or not. Of note patient has been dealing with acute bronchitis for the past 2 weeks, and is being treated with doxycycline. Past medical history significant for osteoporosis, abdominal wall hematoma, hypothyroid, COPD and VTE. Currently being anticoagulated on warfarin. Upon presentation to the ED she was alert and oriented x2; confused about the day and month. ED physician was unable to elicit any remarkable findings on their physical exam. EKG obtained in the ED was normal sinus rhythm and without any acute ischemic changes. Brain CT demonstrated no acute intracranial abnormality or bleed. CBC and BMP unremarkable. Troponin was normal. COVID-19 rapid antigen was negative. UA pending. CTA of the head was ordered in the ED and results are pending. Patient will be admitted for headache and confusion; TIA versus complex migraine. PT/INR pending. Past Medical History Past Medical History (Chronic Problems): Chronic Problems Osteoporosis (Chronic) Abdominal wall hematoma (Chronic) Hypothyroid (Chronic) COPD (chronic obstructive pulmonary disease) (Chronic) VTE (venous thromboembolism) (Chronic) Allergies aspirin Allergy (Verified 06/04/20 18:11) Swelling,HIVES,THROAT SWELLING bee venom protein (honey bee) Allergy (Verified 06/04/20 18:11) Hives bupropion [From Wellbutrin] Allergy (Verified 06/04/20 18:11) Shortness of breath Home Medications: Ambulatory Orders Medication Instructions Recorded Levothyroxine [Synthroid] 50 mcg PO DAILY 12/18/15 Propranolol HCl [Inderal (Beta 40 mg PO DAILY 12/18/15 Denny)] Warfarin [Coumadin ([facility])] 2.5 mg PO MOTUTHFRSA 11/09/16 Celecoxib [Celebrex] 200 mg PO DAILY 05/11/19 Citalopram [Celexa] 20 mg PO DAILY 05/11/19 DiphenhydrAMINE [Benadryl] 50 mg PO DAILY 05/11/19 Gabapentin [Neurontin] 100 mg PO TID 05/11/19 Vitamin B Complex 1 ea PO DAILY 05/11/19 Zolpidem Tartrate [Ambien 5 mg PO QHS 05/11/19 (Generic)] Diphenhydramine HCl [Banophen] 25 mg PO DAILY 06/07/20 Diphenoxylate HCl/Atropine 1 each PO 4X/DAY 06/07/20 [Diphenoxylate-Atrop 2.5-0.025] Duloxetine HCl 30 mg PO DAILY 06/07/20 Surgical History: no surgical history Psychiatric History: Depression - Currently being managed on duloxetine and citalopram Lives: With Family - Lives with daughter who smokes Smoking Status: Current every day smoker Tobacco Use: Cigarettes - Patient endorses a [id number] history; recently cut down to half a pack per day Alcohol: Occasional Drugs: None - *Family History Maternal History Items: Cancer, Heart Disease, - - Paternal History Items: Heart Disease, - - Review of Systems Constitutional: Reports: Chills, Weakness. Denies: Fever, Weight Change Eyes: Reports: Blurred vision HEENT: Denies: Head Aches, Sinus Congestion, Sinus Drainage Cardiovascular: Denies: Chest Pain, Palpitations Respiratory: Reports: Cough, Shortness of Breath, Sputum production Gastrointestinal: Denies: Abdominal Pain, Nausea, Vomiting Genitourinary: Denies: Dysuria Musculoskeletal: Denies: Joint Pain, Joint Tenderness Skin: Denies: Rash, Wounds Neurological: Reports: Numbness - Numbness about the dorsal aspect of the right foot only. Denies: Focal weakness, Tingling Psychiatric: Reports: Depression. Denies: Anxiety, Homicidal Ideations, Suicidal Ideations Hematologic/ Lymphatic: Denies: Easy Bruising, Easy Bleeding VTE Information - Inpt Only VTE Present on Admission: No Subjective: Patient is a 60-year-old female who presented to the ED with a chief complaint of confusion and headache. Headache has been generalized since this morning, however culminated in a attack of nausea/vomiting and stabbing headache this afternoon around noon. Patient still complains of a mild headache (3/10), however reports this is slightly improved. Patient also endorses chills and SOB, however reports that she always feels cold and that the SOB is related to her recent bout of bronchitis. S Patient currently denies vomiting/diarrhea, fever, chest pain, shortness of breath, palpitations, hemoptysis, vision changes, photophobia. Objective: Clinical Impression(s) from Imaging Studies Brain CT 06/07/20 13:11 IMPRESSION: Chronic involutional changes of the brain. No acute hemorrhage or significant interval change Electronically Signed: Onesimo Avery MD at 13:49 EDT , Service support , Head CTA 06/07/20 14:12 IMPRESSION: Normal [place] without a demonstrated aneurysm or hemodynamically significant stenosis. Electronically Signed: Onesimo Avery MD at 15:12 EDT , Service support , Chest X-Ray 06/07/20 14:40 IMPRESSION: Normal x-ray examination of the chest. Electronically Signed: Onesimo Avery MD at 14:53 EDT , Service support , Microbiology 06/07/20 13:13 Mucosa - Nose SARS-CoV-2 Antigen (Rapid) - Final - Physical Exam Vitals/I&O's: Vital Signs Temp Pulse Resp BP Pulse Ox 98.7 F 68 19 H 134/72 H 97 06/07/20 16:01 06/07/20 16:01 06/07/20 16:01 06/07/20 16:01 06/07/20 16:01 Oxygen Delivery Method Room Air Weight: 184 lb 1.6 oz Body Mass Index (BMI) 33.6 Finger Stick Blood Glucose 131 General: Alert, Oriented x3, Cooperative HEENT: Atraumatic, PERRLA, EOMI, Normocephalic Neck: Supple, No JVD, Negative Carotid Bruits Lungs: Clear to auscultation, Normal air movement Cardiovascular: Regular rate, No murmurs Abdomen: Bowel Sounds Present, Soft, Non Tender Extremities: No edema, Capillary Refill Less than 3 Seconds, - - Numbness about the dorsal aspect of the right foot only Skin: No rashes, No breakdown Musculoskeletal: No Tenderness to Palpation of Joints or Extremities Neurological: Cranial nerves II-XII grossly intact Psych/Mental Status: Normal Affect, Appropriate Microbiology Past 72 Hours 06/07/20 13:13 Mucosa - Nose SARS-CoV-2 Antigen (Rapid) - Final Laboratory Results 06/07/20 13:27: WBC 8.4, RBC 5.14, Hgb 15.2 H, Hct 49.0 H, MCV 95.3, MCH 29.6, MCHC 31.0 L, RDW Std Deviation 47.9 H, RDW Coeff of Nessa 13.5, Plt Count 220, MPV 9.9, Immature Gran % (Auto) 0.400, Neut % (Auto) 68.8, Lymph % (Auto) 22.7, Polk % (Auto) 5.1, Eos % (Auto) 1.8, Baso % (Auto) 1.2 H, Absolute Neuts (auto) 5.8, Absolute Lymphs (auto) 1.90, Nucleated RBC % 0 06/07/20 13:27: PT Cancelled, INR Cancelled, APTT Cancelled 06/07/20 13:27: Sodium 138, Potassium 5.0, Chloride 107, Carbon Dioxide 27.0, Anion Gap 4 L, BUN 17, Creatinine 0.96, Estim Creat Clear Calc 48.06, Est GFR (MDRD) Af Amer 76, Est GFR (MDRD) Non-Af 63, BUN/Creatinine Ratio 17.7, Glucose 100, Calcium 9.3, Total Bilirubin 0.50, AST 36, ALT 23, Alkaline Phosphatase 107, Troponin I < 0.015, Total Protein 8.1, Albumin 3.7, Globulin 4.4 H, Albumin/Globulin Ratio 0.8 L 06/07/20 13:27: Lactic Acid 0.9 06/07/20 14:03: PT 26.9 H, INR 2.6, APTT 77.5 H 06/07/20 14:13: Urine Color Yellow, Urine Clarity Clear, Urine pH 5.0, Ur Specific Pillsbury 1.010, Urine Protein Negative, Urine Glucose (UA) Normal, Urine Ketones Negative, Urine Occult Blood Negative, Urine Nitrite Negative, Urine Bilirubin Negative, Urine Urobilinogen Normal, Ur Leukocyte Esterase 25 H, Urine RBC 0 SEEN, Urine WBC 0-5 SEEN, Ur Squamous Epith Cells 0-5 SEEN, Urine Bacteria RARE, Urine Mucus 0 SEEN Assessment/Plan All Active Problems Headache (Acute) Confusion (Acute) Chest pain (Acute) This patient is a 60-year-old female who presents to the ED at [facility] on 06/07/2020 with a chief complaint of confusion and headache that began today. Patient states that this morning she woke up with a generalized stabbing headache, that progressed in severity throughout the day. ED physician was unable to elicit any remarkable findings on their physical exam. EKG obtained in the ED was normal sinus rhythm and without any acute ischemic changes. Brain CT demonstrated no acute intracranial abnormality or bleed. CBC and BMP unremarkable. Troponin was normal. COVID-19 rapid antigen was negative. UA pending. INR 2.6. Patient was able to reiterate certain events around the nausea/vomiting/headache attack this afternoon, however is unclear whether there was a loss of consciousness or not. My physical exam demonstrated no focal neuro deficits and patient was alert and oriented 3. Patient did have some numbness about the dorsal aspect of the right foot; likely secondary to previous fracture. Patient will be admitted for headache and confusion; TIA versus complex migraine. 1) Headache; TIA versus complex migraine Assessment - Brain CT; no acute intracranial abnormality or bleeding noted - Head CTA; normal council of [place] without demonstrated aneurysm or stenosis - No focal neurological deficits demonstarted - Will consider seizure workup if TIA/complex migraine work up is negative. - CBC and BMP unremarkable - UA unremarkable - BP 134/72, stable Plan - MRI brain ordered - Admit to PCU for observation - BP management via hydralazine - TSH ordered - Hemoglobin A1c ordered 2) Chest pain Assessment - EKG; NSR with not ischemic changes - Troponins not elevated - CBC and BMP unremarkable - Currently anticoagulated on warfarin Plan - Hold propranolol 3) COPD Assessment - Stable - CXR demonstrates no acute cardiopulmonary process Plan -Initiate Ventolin and DuoNeb aerosols on admission 4) VTE Assessment - INR 2.6 Plan - Purposely hold dose of warfarin till tomorrow evening 5) Hypothyroid Assessment - Managed on Synthroid at home Plan - TSH ordered -Synthroid continued DVT prophylaxis - Holding home Warfarin till tomorrow evening. Patient seen by Francisco Javier Fragoso PA-C, under the supervision of Dr. Mukherjee.
[2020-06-07] MEDS: 0.9% Normal Saline 1,000 ML 100 ML IV (18:00)
--- NOTE | 2020-06-07 18:06 | CDU_ITS ---
Reason For Study: TIA/CVA Rt. Velocities/BP Lt. Velocities/BP Prox CCA 86.9/15.1 cm/sec. Prox CCA 96.2/14.9 cm/sec. Mid CCA 82.9/20.3 cm/sec. Mid CCA 101.7/20.4 cm/sec. Dist CCA 77.7/20.3 cm/sec. Dist CCA 96.2/21.5 cm/sec. Prox ICA 76.0/23.2 cm/sec. Prox ICA 70.7/22.8 cm/sec. Mid ICA 80.9/29.4 cm/sec. Mid ICA 84.3/29.0 cm/sec. Dist ICA 108.8/35.1 cm/sec. Dist ICA 81.8/24.1 cm/sec. Rt. ICA/CCA = 108.8/86.9=1.3. Lt. ICA/CCA = 84.3/101.7=0.8. Prox ECA 132.6/15.7 cm/sec. Prox ECA 108.4/13.9 cm/sec. Rt. Vert. 50.0/16.9 cm/sec. Lt. Vert. 53.5/11.9 cm/sec. Right Extracranial There is intimal thickening but no significant atherosclerotic plaque noted in the right common carotid artery. There is homogeneous, smooth atherosclerotic plaque noted in the right internal carotid artery. There is heterogeneous, smooth atherosclerotic plaque noted in the right external carotid artery. Antegrade flow is noted in the right vertebral artery. There is heterogeneous, irregular atherosclerotic plaque noted in the right bulb. Left Extracranial There is intimal thickening but no significant atherosclerotic plaque noted in the left common carotid artery. There is homogeneous, smooth atherosclerotic plaque noted in the left internal carotid artery. There is homogeneous, smooth atherosclerotic plaque noted in the left external carotid artery. Antegrade flow is noted in the left vertebral artery. There is heterogeneous, irregular atherosclerotic plaque noted in the left bulb. Procedure Carotid Duplex 65408. Exam performed portable in patient room. VL/Carotid Duplex Ultrasound Interpretation Summary Minimal smooth plague proximal bilateral internal carotid arteries with <50% st enosis <50% stenosis bilateral external carotid arteries Patent, antegrade vertebrals bilaterally Ordering Physician: Francisco Javier Fragoso Referring Physician: Stew Berg Performed By: Kathya Vazquez, ANDREA, RVT
--- NOTE | 2020-06-07 18:06 | ECHOD_ITS ---
Reason For Study: TIA/CVA Procedure This was a 2D Doppler, Color Flow transthoracic echocardiogram. Bubble Study performed. Exam performed portable in patient room. Left Ventricle Normal LV size. Left ventricular systolic function is normal. The estimated ejection fraction is 65 %. No evidence for diastolic dysfunction. No regional wall motion abnormalities noted. Right Ventricle Normal RV size. Normal systolic function. Atria Normal left atrium. Normal right atrium. No doppler evidence for ASD. Bubble contrast study negative for right to left interatrial shunt. Mitral Valve There is no mitral annular calcification. Normal mitral valve. Trivial mitral valve insufficiency. Tricuspid Valve Normal tricuspid valve. Trivial tricuspid valve insufficiency. Unable to estimate RV systolic pressure due to insufficient tricuspid regurgitant envelope. Aortic Valve The aortic valve is not well visualized. Pulmonic Valve The pulmonic valve is not well visualized. Great Vessels The aortic root is not well visualized. Pericardium/Pleural Trivial pericardial effusion. There are no echocardiographic indications of cardiac tamponade. Medication Performed a rapid injection of agitated mix of 9 cc saline and 1cc air to assess for atrial septal defect. MMode/2D Measurements & Calculations LVIDd: 4.0 cm IVSd: 0.79 cm LA dimension: 3.1 cm LVIDs: 2.4 cm LVPWd: 0.93 cm FS: 41.2 % LAV(MOD-bp): 32.2 ml LA A4 area: 12.8 cm2 RA A4 area: 7.6 cm2 LAV(MOD-bp) Indexed: 18.4 ml/m2 LAV(MOD-sp2): 36.7 ml LAV(MOD-sp4): 27.8 ml Time Measurements MV dec time: 0.23 sec Doppler Measurements & Calculations MV E max rajendra: 82.3 cm/sec Lat Peak E' Rajendra: 10.6 cm/sec Med Peak E' Rajendra: 9.7 cm/sec MV A max rajendra: 77.3 cm/sec E/E' lat: 7.8 E/E' med: 8.5 MV E/A: 1.1 MV V2 max: 89.2 cm/sec MV P1/2t max rajendra: 84.9 cm/sec Ao V2 max: 144.5 cm/sec MV max P.2 mmHg MV P1/2t: 79.8 msec Ao max P.3 mmHg MV V2 mean: 54.3 cm/sec MV dec slope: 311.6 cm/sec2 MV mean P.4 mmHg MV V2 VTI: 24.4 cm MVA(P1/2t): 2.8 cm2 LV V1 max: 135.1 cm/sec PA V2 max: 81.9 cm/sec LV V1 max P.3 mmHg ECHO/Echo Complete Interpretation Summary Left ventricular systolic function is normal. The estimated ejection fraction is 65 %. Trivial mitral valve insufficiency. Trivial tricuspid valve insufficiency. Trivial pericardial effusion. There are no echocardiographic indications of cardiac tamponade. Unable to estimate RV systolic pressure due to insufficient tricuspid regurgita nt envelope. No evidence for diastolic dysfunction. Bubble contrast study negative for right to left interatrial shunt. Ordering Physician: Francisco Javier Fragoso Referring Physician: MD Otis Stew Performed By: Olu Kamara RCS
--- NOTE | 2020-06-07 18:41 | MRI_ITS ---
STUDY: MRI BRAIN WITHOUT CONTRAST REASON FOR EXAM: Female, 60 years old. CVA TECHNIQUE: Standardized multiplanar fat and water weighted pulse sequences were obtained. COMPARISON: CT of the brain 06/07/2020 FINDINGS: Normal size of the ventricles and extra-axial spaces for the patient''s age. Moderate periventricular white matter ischemic changes without mass effect or restricted diffusion. Chronic ischemic changes of the adair Small old bilateral lacunar infarcts in the basal ganglia. Normal thalami. There is no extra-axial fluid accumulation. Normal flow voids within the major intracranial circulation suggesting patency by spin echo criteria. Normal sella turcica, pituitary gland, infundibular stalk, optic chiasm and hypothalamus. Normal tectal plate and pineal gland. Normal midbrain, and medulla. Normal cerebellum. Normal basal cisterns. Normal bilateral temporal bones. Normal bilateral internal auditory canals. Postsurgical changes of the orbits. Normal visualized paranasal sinuses. Normal calvarium and skull base. Normal visualized soft tissue structures. Normal visualized upper cervical spine. MRI/Brain without Contrast IMPRESSION: Moderate periventricular white matter ischemic change without evidence for infarct. 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 Electronically Signed: Amrit Cunha MD at 20:49 EDT , Service support ,
[2020-06-07] MEDS: 0.9% Saline Lock 10 ML Syringe IV (18:59)
[2020-06-07 19:17] LABS: Hemoglobin A1c 5.3 % (3.8-5.6)
[2020-06-07 19:24] LABS: International Normalized Ratio 2.5; Prothrombin Time (Protime)PT. 26.2 SECONDS (11.7-14.9)
[2020-06-07] MEDS: Ipratropium/Albuterol Sulfate 3 ML AMPUL.NEB INHALATION (20:12)
[2020-06-07] MEDS: Atorvastatin Calcium 80 MG Tablet PO (21:24)
[2020-06-07 23:21] LABS: Bedside Glucose 164 mg/dL (70-110)
[2020-06-08] VITALS (8 sets, daily range): BP systolic 95–125; BP diastolic 52–68; PULSE 67–77; RESP 16–18; TEMP 36.6–36.8; O2SAT 95–100; BMI 33.5
[2020-06-08] MEDS: Acetaminophen 325 MG Tablet 650 MG PO (03:28)
[2020-06-08 05:41] LABS: Cholesterol 172 mg/dL (200); High Density Lipoprotein 54 mg/dL; Triglycerides 97 mg/dL; Very Low Density Lipoprotein 19 mg/dL (5-40)
[2020-06-08] MEDS: 0.9% Normal Saline 1,000 ML 100 ML IV (06:31)
[2020-06-08] MEDS: Levothyroxine 50 MCG Tablet PO (06:31)
[2020-06-08 07:10] LABS: Bedside Glucose 98 mg/dL (70-110)
[2020-06-08] MEDS: Ipratropium/Albuterol Sulfate 3 ML AMPUL.NEB INHALATION (07:33)
[2020-06-08] MEDS: DULoxetine Hcl 30 MG Capsule PO (08:32)
[2020-06-08] MEDS: Clopidogrel Bisulfate 75 MG Tablet PO (08:33)
[2020-06-08 09:59] LABS: Erythrocyte Sedimentation Rate 31 mm/hr (0-30)
--- NOTE | 2020-06-08 10:40 | TELEMED_ITS ---
[facility] has confirmed receipt of a request for visit. This document confirms receipt of the order initiating the consult. To find the results of the consultation, please view the patient's reports for the scanned Telemed Consult.
[2020-06-08 11:15] LABS: Bedside Glucose 100 mg/dL (70-110)
[2020-06-08] MEDS: 0.9% Normal Saline 1,000 ML 999 ML IV (11:15)
--- NOTE | 2020-06-08 13:18 | CASEMGMT ---
SW did not complete a PHQ 9 with patient as she did not have a Stroke per DANIEL Johnson UNDER [facility]ER[facility] ETHEL
--- NOTE | 2020-06-08 13:19 | DCINST_ITS ---
- Discharge Diagnoses Current Active Problems: Current Active and Chronic Problems Headache (Acute) Confusion (Acute) Osteoporosis (Chronic) Abdominal wall hematoma (Chronic) Hypothyroid (Chronic) COPD (chronic obstructive pulmonary disease) (Chronic) VTE (venous thromboembolism) (Chronic) Chest pain (Acute) You will use the following diet at home:: No restrictions Your food should be the consistency of: Regular Your liquids should be the consistency of: Regular/Thin Discharge Activity: Return to Normal Activity Allergies/Adverse Reactions: Allergies aspirin Allergy (Verified 06/04/20 18:11) Swelling,HIVES,THROAT SWELLING bee venom protein (honey bee) Allergy (Verified 06/04/20 18:11) Hives bupropion [From Wellbutrin] Allergy (Verified 06/04/20 18:11) Shortness of breath Medications to take at Discharge Levothyroxine [Synthroid] 50 mcg PO DAILY 12/18/15 Propranolol HCl [Inderal (Beta Denny)] 40 mg PO DAILY 12/18/15 Warfarin [Coumadin] 2.5 mg PO MOTUTHFRSA 11/09/16 Celecoxib [Celebrex] 200 mg PO DAILY 05/11/19 Zolpidem Tartrate [Ambien] 5 mg PO QHS PRN 05/11/19 Diphenhydramine HCl [Banophen] 25 mg PO Q6H PRN PRN 06/07/20 Diphenoxylate HCl/Atropine [Diphenoxylate-Atrop 2.5-0.025] 1 each PO 4X/DAY PRN 06/07/20 Duloxetine HCl 30 mg PO DAILY 06/07/20 Multivitamin Women 50 Plus Tab 1 tablet PO DAILY 06/07/20 Primary Care Physician: Stew Berg MD [Primary Care Provider] - Please follow up with your Primary Care Physician in: Within the next 2 weeks Test Results: Test results from this visit will be discussed in further detail at your follow- up appointment, if applicable. Please Follow Up With: Dr. Hipolito Garrett (Neurologist) - [phone] When: At the earliest possible appointment Proposed Discharge Date: 06/08/20
--- NOTE | 2020-06-08 13:27 | PCM.DC.SUM ---
<Francisco Javier Fragoso - Last Filed: 06/08/20 13:27> Discharge Date and Diagnosis - Problem List Patient Problems: Active and Suspected Problems Headache (Acute) Confusion (Acute) Chest pain (Acute) Date of Admission: 06/07/20 Date of Discharge: 06/08/20 - Primary Discharge Diagnosis Acute Problems: Active Problems Headache (Acute) Confusion (Acute) Chest pain (Acute) - Secondary Discharge Diagnosis Chronic Problems: Chronic Problems Osteoporosis (Chronic) Abdominal wall hematoma (Chronic) Hypothyroid (Chronic) COPD (chronic obstructive pulmonary disease) (Chronic) VTE (venous thromboembolism) (Chronic) Hospital Course and Treatment Operations: None Summary of Care Provided: Patient is a 60-year-old female who presented to the ED at [facility] on 06/07/2020 for an acute attack of nausea/vomiting and severe headache. EKG obtained in the ED was normal sinus rhythm and without any acute ischemic changes. Brain CT demonstrated no acute intracranial abnormality or bleed. CBC and BMP unremarkable. Troponin was normal. COVID-19 rapid antigen was negative. UA unremarkable. INR 2.6. Patient was admitted for work-up of acute encephalopathy secondary to possible TIA/CVA versus complex migraine. Brain MRI and head CTA were unremarkable. EEG demonstrated no evidence of seizure or neuronal abnormalities. CBC, CMP, coags unremarkable. Given completely unremarkable work-up, it is unclear what caused this episode that the patient experienced yesterday. It is possible that the symptoms were the result of a complex migraine and his it is recommended that the patient follow-up with neurology as an outpatient 1) Headache; TIA versus complex migraine Assessment - No focal neurological deficits demonstarted - Brain CT; no acute intracranial abnormality or bleeding noted - Head CTA; normal [place] without demonstrated aneurysm or stenosis - Brain MRI; moderate periventricular white matter ischemic change without evidence for infarct. 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 - EEG; no evidence of seizure or neuronal abnormalities - CBC and BMP unremarkable - UA unremarkable - BP 134/72, stable - Hemoglobin A1c 5.3 - TSH 1 - Lipids within normal limits Plan - Follow-up with neurology as an outpatient 2) Chest pain Assessment - EKG; NSR with not ischemic changes - Troponins not elevated - CBC and BMP unremarkable Plan - Continue propranolol and Coumadin on discharge 3) COPD Assessment - Stable - CXR demonstrates no acute cardiopulmonary process - No aerosol medications noted in the patient's chart, however patient claims that she does have an aerosol inhaler at home that she gets from her PCP. Cannot remember the name Plan -Continue on home inhaler 4) VTE Assessment - INR 2.6 Plan -Continue warfarin on discharge 5) Hypothyroid Assessment - Managed on Synthroid at home Plan - Continue on Synthroid at home 6) history of seizure disorder Assessment - EEG obtained on 06/08/2020 demonstrated no evidence of seizure or neuronal abnormalities - Seizure history not noted in patient's chart however history obtained from patient Plan - Follow-up with neurology as an outpatient Patient seen by Francisco Javier Fragoso PA-C, under the supervision of Dr. Cm. Patient Problems: Active and Suspected Problems Headache (Acute) Confusion (Acute) Chest pain (Acute) Subjective: Patient is a 60-year-old female comfortably resting in a chair, alert and orient x3. At my initial visit this morning patient was still complaining of a mild headache and was observed with a minor shake of the hands. Upon my return later on's afternoon shaking in the hands had resolved and patient reported feeling much better. Objective: Clinical Impression(s) from Imaging Studies Brain CT 06/07/20 13:11 IMPRESSION: Chronic involutional changes of the brain. No acute hemorrhage or significant interval change Electronically Signed: Onesimo Avery MD at 13:49 EDT , Service support , Head CTA 06/07/20 14:12 IMPRESSION: Normal [place] without a demonstrated aneurysm or hemodynamically significant stenosis. Electronically Signed: Onesimo Avery MD at 15:12 EDT , Service support , Chest X-Ray 06/07/20 14:40 IMPRESSION: Normal x-ray examination of the chest. Electronically Signed: Onesimo Avery MD at 14:53 EDT , Service support , Brain MRI 06/07/20 18:41 IMPRESSION: Moderate periventricular white matter ischemic change without evidence for infarct. 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 Electronically Signed: Amrit Cunha MD at 20:49 EDT , Service support , Microbiology 06/07/20 13:13 Mucosa - Nose SARS-CoV-2 Antigen (Rapid) - Final - Physical Exam Vitals/I&O's: Vital Signs Temp Pulse Resp BP Pulse Ox 98.3 F 74 17 125/68 H 97 06/08/20 12:55 06/08/20 12:55 06/08/20 12:55 06/08/20 12:55 06/08/20 13:07 Oxygen Delivery Method Room Air Weight: 171 lb 8.314 oz Body Mass Index (BMI) 33.5 Finger Stick Blood Glucose 131 Intake and Output for Last 24 Hours 06/06/20 06/07/20 06/08/20 23:59 23:59 23:59 Intake Total 560 / 560 1380 / 1380 Balance 560 / 560 1380 / 1380 General: Alert, Oriented x3, Cooperative HEENT: Atraumatic, PERRLA, EOMI, Normocephalic Neck: Supple, No JVD, Negative Carotid Bruits Lungs: Clear to auscultation, Normal air movement Cardiovascular: Regular rate, No murmurs Abdomen: Bowel Sounds Present, Soft, Non Tender Extremities: No edema, Capillary Refill Less than 3 Seconds Skin: No rashes, No breakdown Musculoskeletal: No Tenderness to Palpation of Joints or Extremities Neurological: Cranial nerves II-XII grossly intact Psych/Mental Status: Normal Affect, Appropriate Microbiology Past 72 Hours 06/07/20 13:13 Mucosa - Nose SARS-CoV-2 Antigen (Rapid) - Final Laboratory Results 06/07/20 13:27: WBC 8.4, RBC 5.14, Hgb 15.2 H, Hct 49.0 H, MCV 95.3, MCH 29.6, MCHC 31.0 L, RDW Std Deviation 47.9 H, RDW Coeff of Nessa 13.5, Plt Count 220, MPV 9.9, Immature Gran % (Auto) 0.400, Neut % (Auto) 68.8, Lymph % (Auto) 22.7, [place] % (Auto) 5.1, Eos % (Auto) 1.8, Baso % (Auto) 1.2 H, Absolute Neuts (auto) 5.8, Absolute Lymphs (auto) 1.90, Nucleated RBC % 0 06/07/20 13:27: PT Cancelled, INR Cancelled, APTT Cancelled 06/07/20 13:27: Sodium 138, Potassium 5.0, Chloride 107, Carbon Dioxide 27.0, Anion Gap 4 L, BUN 17, Creatinine 0.96, Estim Creat Clear Calc 48.06, Est GFR (MDRD) Af Amer 76, Est GFR (MDRD) Non-Af 63, BUN/Creatinine Ratio 17.7, Glucose 100, Calcium 9.3, Total Bilirubin 0.50, AST 36, ALT 23, Alkaline Phosphatase 107, Troponin I < 0.015, Total Protein 8.1, Albumin 3.7, Globulin 4.4 H, Albumin/Globulin Ratio 0.8 L 06/07/20 13:27: Lactic Acid 0.9 06/07/20 13:27: Magnesium 2.0 06/07/20 14:03: PT 26.9 H, INR 2.6, APTT 77.5 H 06/07/20 14:13: Urine Color Yellow, Urine Clarity Clear, Urine pH 5.0, Ur Specific [place] 1.010, Urine Protein Negative, Urine Glucose (UA) Normal, Urine Ketones Negative, Urine Occult Blood Negative, Urine Nitrite Negative, Urine Bilirubin Negative, Urine Urobilinogen Normal, Ur Leukocyte Esterase 25 H, Urine RBC 0 SEEN, Urine WBC 0-5 SEEN, Ur Squamous Epith Cells 0-5 SEEN, Urine Bacteria RARE, Urine Mucus 0 SEEN 06/07/20 18:39: Troponin I < 0.015 06/07/20 18:39: PT 26.2 H, INR 2.5 06/07/20 18:39: TSH 1.00 06/07/20 18:39: Hemoglobin A1c 5.3 06/07/20 21:36: POC Glucose 164 H 06/08/20 04:56: Triglycerides 97, Cholesterol 172, LDL Cholesterol 99, VLDL Cholesterol 19, HDL Cholesterol 54 06/08/20 04:56: ESR 31 H 06/08/20 06:33: POC Glucose 98 06/08/20 11:10: POC Glucose 100 Current Medications Acetaminophen (Acetaminophen 325 Mg Tablet) 650 mg PO Q6H PRN PRN PRN Reason: HEADACHE 1-10/FEVER (T>102.5) Last Admin: 06/08/20 03:28 Dose: 650 mg Documented by: Albuterol Sulfate (Albuterol 2.5 Mg/3 Ml Vial.Neb.) 2.5 mg INHALATION Q2H PRN PRN PRN Reason: SOB &/OR WHEEZING Albuterol/Ipratropium (Ipratropium/Albuterol Sulfate 3 Ml Ampul.Neb) 3 ml INHALATION Q6HWA.RT [facility] Last Admin: 06/08/20 07:33 Dose: 3 ml Documented by: Atorvastatin Calcium (Atorvastatin Calcium 80 Mg Tablet) 80 mg PO QHS [facility] Last Admin: 06/07/20 21:24 Dose: 80 mg Documented by: Clopidogrel Bisulfate (Clopidogrel Bisulfate 75 Mg Tablet) 75 mg PO DAILY [facility] Last Admin: 06/08/20 08:33 Dose: 75 mg Documented by: Duloxetine HCl (Duloxetine Hcl 30 Mg Capsule) 30 mg PO DAILY [facility] Last Admin: 06/08/20 08:32 Dose: 30 mg Documented by: Hydralazine HCl (Hydralazine 20 Mg/Ml Vial) 5 mg IV Q30M PRN PRN Reason: to maintain BP goals Sodium Chloride () 250 mls @ 15 mls/hr IV .[id number] PRN PRN Reason: Saline Flush Sodium Chloride () 250 mls @ 15 mls/hr IV .[id number] PRN PRN Reason: Additional IVPB Infusion Labetalol HCl (Labetalol (Prefilled) 20 Mg/4 Ml) 10 - 20 mg IV Q10M PRN PRN PRN Reason: to Maintain BP Goals Levothyroxine Sodium (Levothyroxine 50 Mcg Tablet) 50 mcg PO DAILY@0600 [facility] Last Admin: 06/08/20 06:31 Dose: 50 mcg Documented by: Nicotine (Nicotine 14 Mg Patch) 14 mg TD DAILY [facility] Last Admin: 06/07/20 21:24 Dose: 14 mg Documented by: Sodium Chloride (0.9% Saline Lock 10 Ml Syringe) 10 - 40 ml IV UD PRN PRN Reason: SALINE FLUSH Last Admin: 06/07/20 18:59 Dose: 10 ml Documented by: Discharge Diet: No Restrictions Discharge Activity: Return to Normal Activity Home Medications: Medications to take at Discharge Levothyroxine [Synthroid] 50 mcg PO DAILY 12/18/15 Propranolol HCl [Inderal (Beta Denny)] 40 mg PO DAILY 12/18/15 Warfarin [Coumadin] 2.5 mg PO MOTUTHFRSA 11/09/16 Celecoxib [Celebrex] 200 mg PO DAILY 05/11/19 Zolpidem Tartrate [Ambien] 5 mg PO QHS PRN 05/11/19 Diphenhydramine HCl [Banophen] 25 mg PO Q6H PRN PRN 06/07/20 Diphenoxylate HCl/Atropine [Diphenoxylate-Atrop 2.5-0.025] 1 each PO 4X/DAY PRN 06/07/20 Duloxetine HCl 30 mg PO DAILY 06/07/20 Multivitamin Women 50 Plus Tab 1 tablet PO DAILY 06/07/20 Primary Care Physician: Stew Berg MD [Primary Care Provider] - Please follow up with your Primary Care Physician in: Within the next 2 weeks Please Follow Up With: Dr. Hipolito Garrett (Neurologist) - [phone] When: At the earliest possible appointment Disposition: Home Minutes spent on discharge:: 35 Patient Condition:: Good Medical Necessity - Tobacco Use Smoking Status: Current every day smoker Tobacco Use: Cigarettes Meaningful Use Info Meaningful Use Diagnoses (Choose all that apply): None applicable <Raul Cm - Last Filed: 06/08/20 16:22> Discharge Date and Diagnosis - Primary Discharge Diagnosis Acute Problems: Active Problems Headache (Acute) Confusion (Acute) Chest pain (Acute) - Secondary Discharge Diagnosis Chronic Problems: Chronic Problems Osteoporosis (Chronic) Abdominal wall hematoma (Chronic) Hypothyroid (Chronic) COPD (chronic obstructive pulmonary disease) (Chronic) VTE (venous thromboembolism) (Chronic) Hospital Course and Treatment Summary of Care Provided: The patient is a 60 year old F with remote history of migraine headache and seizure, unclear type and classification but in remission for last 15 years came to ER with generalized severe headache, acute attack of nausea and vomiting. Basic work-ups did not show any acute finding. EKG normal sinus rhythm. CT head no acute intracranial abnormality. Later on patient admitted in PCU. Patient had MRI brain and CTA brain which were unremarkable with no acute change. MRI brain reported small old bilateral infarcts and chronic ischemic changes of the [place]air. Later on patient had EEG which reported normal. TSH A1c within normal limit. ESR within normal limit 31 as per her age and gender. Patient also had chest pain but negative work-up. Echo EF 65%. Denies dysuria or increased frequency urgency or fever. Patient other comorbidities including COPD, hypothyroidism as mentioned above. Discharge medication reconciliation done. Discharge follow-up instructions completed. Discharge process discussed with the patient and all questions were answered to patient's satisfaction. Total time spent, exact 35 minutes on discharge meds reconciliation, examination, coordination of care with nurses and ancillary staff, review of imaging and blood test and discussion with the patient on follow-up instructions Clinical Impression(s) from Imaging Studies Brain CT 06/07/20 13:11 IMPRESSION: Chronic involutional changes of the brain. No acute hemorrhage or significant interval change Electronically Signed: Onesimo Avery MD at 13:49 EDT , Service support , Head CTA 06/07/20 14:12 IMPRESSION: Normal [place] without a demonstrated aneurysm or hemodynamically significant stenosis. Electronically Signed: Onesimo Avery MD at 15:12 EDT , Service support , Chest X-Ray 06/07/20 14:40 IMPRESSION: Normal x-ray examination of the chest. Electronically Signed: Onesimo Avery MD at 14:53 EDT , Service support , Echocardiogram 06/07/20 18:06 Interpretation Summary Left ventricular systolic function is normal. The estimated ejection fraction is 65 %. Trivial mitral valve insufficiency. Trivial tricuspid valve insufficiency. Trivial pericardial effusion. There are no echocardiographic indications of cardiac tamponade. Unable to estimate RV systolic pressure due to insufficient tricuspid regurgitant envelope. No evidence for diastolic dysfunction. Bubble contrast study negative for right to left interatrial shunt. Ordering Physician: Francisco Javier Fragoso Referring Physician: MD Otis Stew Performed By: Olu Kamara RCS Brain MRI 06/07/20 18:41 IMPRESSION: Moderate periventricular white matter ischemic change without evidence for infarct. 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 Electronically Signed: Amrit Cunha MD at 20:49 EDT , Service support , Objective: Seen and examined. Patient was admitted with headache which was generalized associated with nausea and vomiting. She cannot give clear history for headache origin and progression. See has history of seizure in the past but seems antiepileptic medications has been discontinued by her healthcare provider. She did not had any seizure for last 15 to 20 years. She also had history of migraine headache but not had any recent headache for last 10 to 15 years. She had blurry vision. She had shaking but denies involuntary movements suggestive of seizure like tonic movement, clonus, or repetitive movements. Mild blurry vision. No urinary or fecal incontinence. No tongue bite. Physical exam General: Alert, Oriented x3, Cooperative HEENT: No temporal tenderness or superficial temporal artery tenderness. Atraumatic, PERRLA, EOMI, Normocephalic Oral: No Gingival or Mucosal Lesions/ Ulcerations Neck: Supple, No JVD, Negative Carotid Bruits Lungs: Air entry diminished in bilateral lung bases. No crepitation/rhonchi Cardiovascular: Regular rate, Regular Rhythm, Normal S1, Normal S2, No murmurs Abdomen: Bowel Sounds Present, Soft, Non Tender, Non-Distended : No renal angle tenderness. No suprapubic tenderness. Extremities: No edema, Capillary Refill Less than 3 Seconds Skin: No rashes, No breakdown Musculoskeletal: No Tenderness to Palpation of Joints or Extremities Neurological: Strength 5/5 at major joints. No hypertonia/hypotonia. Cranial nerves II-XII grossly intact, Deep Tendon Reflexes 2+/4 and Symmetrical, Neuro grossly intact Psych/Mental Status: Normal Affect, Appropriate. - Physical Exam Vitals/I&O's: Vital Signs Temp Pulse Resp BP Pulse Ox 98.3 F 74 17 125/68 H 100 06/08/20 15:55 06/08/20 15:55 06/08/20 15:55 06/08/20 15:55 06/08/20 15:55 Oxygen Delivery Method Room Air Weight: 171 lb 8.314 oz Body Mass Index (BMI) 33.5 Finger Stick Blood Glucose 131 Intake and Output for Last 24 Hours 06/06/20 06/07/20 06/08/20 23:59 23:59 23:59 Intake Total 560 / 560 3321.67 / 3321.67 Balance 560 / 560 3321.67 / 3321.67 Microbiology Past 72 Hours 06/07/20 13:13 Mucosa - Nose SARS-CoV-2 Antigen (Rapid) - Final Laboratory Results 06/07/20 13:27: Magnesium 2.0 06/07/20 18:39: Troponin I < 0.015 06/07/20 18:39: PT 26.2 H, INR 2.5 06/07/20 18:39: TSH 1.00 06/07/20 18:39: Hemoglobin A1c 5.3 06/07/20 21:36: POC Glucose 164 H 06/08/20 04:56: Triglycerides 97, Cholesterol 172, LDL Cholesterol 99, VLDL Cholesterol 19, HDL Cholesterol 54 06/08/20 04:56: ESR 31 H 06/08/20 06:33: POC Glucose 98 06/08/20 11:10: POC Glucose 100 Current Medications Acetaminophen (Acetaminophen 325 Mg Tablet) 650 mg PO Q6H PRN PRN PRN Reason: HEADACHE 1-10/FEVER (T>102.5) Last Admin: 06/08/20 03:28 Dose: 650 mg Documented by: Albuterol Sulfate (Albuterol 2.5 Mg/3 Ml Vial.Neb.) 2.5 mg INHALATION Q2H PRN PRN PRN Reason: SOB &/OR WHEEZING Albuterol/Ipratropium (Ipratropium/Albuterol Sulfate 3 Ml Ampul.Neb) 3 ml INHALATION Q6HWA.RT [facility] Last Admin: 06/08/20 07:33 Dose: 3 ml Documented by: Atorvastatin Calcium (Atorvastatin Calcium 80 Mg Tablet) 80 mg PO QHS [facility] Last Admin: 06/07/20 21:24 Dose: 80 mg Documented by: Clopidogrel Bisulfate (Clopidogrel Bisulfate 75 Mg Tablet) 75 mg PO DAILY [facility] Last Admin: 06/08/20 08:33 Dose: 75 mg Documented by: Duloxetine HCl (Duloxetine Hcl 30 Mg Capsule) 30 mg PO DAILY [facility] Last Admin: 06/08/20 08:32 Dose: 30 mg Documented by: Hydralazine HCl (Hydralazine 20 Mg/Ml Vial) 5 mg IV Q30M PRN PRN Reason: to maintain BP goals Sodium Chloride () 250 mls @ 15 mls/hr IV .[id number] PRN PRN Reason: Saline Flush Sodium Chloride () 250 mls @ 15 mls/hr IV .[id number] PRN PRN Reason: Additional IVPB Infusion Labetalol HCl (Labetalol (Prefilled) 20 Mg/4 Ml) 10 - 20 mg IV Q10M PRN PRN PRN Reason: to Maintain BP Goals Levothyroxine Sodium (Levothyroxine 50 Mcg Tablet) 50 mcg PO DAILY@0600 [facility] Last Admin: 06/08/20 06:31 Dose: 50 mcg Documented by: Nicotine (Nicotine 14 Mg Patch) 14 mg TD DAILY [facility] Last Admin: 06/07/20 21:24 Dose: 14 mg Documented by: Sodium Chloride (0.9% Saline Lock 10 Ml Syringe) 10 - 40 ml IV UD PRN PRN Reason: SALINE FLUSH Last Admin: 06/07/20 18:59 Dose: 10 ml Documented by: OBSV E&M: [id number] Observation care discharge
== END 2020-06-08 13:21 | disposition home or self-care (01) ==
LOC: ED 13:53 → PCU 16:25
PROVIDERS: Physician Assistant; Admitting Provider Family Medicine; Emergency Provider Emergency Medicine; PCP Family Medicine; Visit Provider Internal Medicine
DX: R51.9 Headache, unspecified (principal); R41.0 Disorientation, unspecified; R07.89 Other chest pain; J44.9 Chronic obstructive pulmonary disease, unspecified; E03.9 Hypothyroidism, unspecified; M81.0 Age-related osteoporosis without current pathological fracture; Z79.899 Other long term (current) drug therapy; Z79.01 Long term (current) use of anticoagulants; F32.9 Major depressive disorder, single episode, unspecified; F17.210 Nicotine dependence, cigarettes, uncomplicated; F41.9 Anxiety disorder, unspecified; I10 Essential (primary) hypertension; I65.23 Occlusion and stenosis of bilateral carotid arteries; I08.1 Rheumatic disorders of both mitral and tricuspid valves
CPT/HCPCS: 36415; 70450; 70496; 70551; 71045; 80053; 80061; 81001; 82962; 83036; 83605; 83735; 84443; 84484; 85025; 85610; 85652; 85730; 87426; 92610; 93005; 93306; 93880; 94640; 94762; 95819; 96360; 96361; 97162; 97166; 99218; 99251; 99285; 99406; J7030; Q9967; A4216; G0378; G0463

== ENCOUNTER 2021-03-01 21:50 | Emergency (ER) | payer MEDICARE, MEDICAID, SELFPAY ==
[2021-03-01 21:53] VITALS: BP 124/89; PULSE 72; RESP 16; TEMP 36.6; O2SAT 96; BMI 29.2
--- NOTE | 2021-03-01 22:53 | EKG12_ITS ---
Test Reason : CP Blood Pressure : / mmHG Vent. Rate : 073 BPM Atrial Rate : 073 BPM P-R Int : 150 ms QRS Dur : 060 ms QT Int : 390 ms P-R-T Axes : 079 086 059 degrees QTc Int : 429 ms Normal sinus rhythm Normal ECG Confirmed by JOAQUÍN JULES MD ([id number]), videotape editor SAVANAH PAINTER ([id number]) on 03/07/2021 10:29:51 AM Referred By: LINH Confirmed By:JOAQUÍN JULES MD
--- NOTE | 2021-03-01 22:54 | ED.VIS.CHEST ---
HPI History of Present Illness Chief Complaint: Chest Pain Detail of Chief Complaint: Chest pain that started 2 days ago Informant: patient Narrative Narrative: Patient presents to the emergency department complaint of chest pain that started yesterday. Patient describes a sharp stabbing pain that is worse when she is laying flat and it seems to improve with sitting up and moving around. Patient rates her pain a 5 out of 10 currently. She denies radiation of the pain. She has had no nausea or vomiting. Denies shortness of breath. Patient says she is had a chronic cough since summer. She has not had the Covid vaccine and does not want it. Patient has not had any cardiac issues in the past but states that there is a family history of heart disease in her mother at age 61 of a heart attack. Prior Similar Symptoms: No PFSH [facility] Medical History (Updated 03/02/21 @ 00:[address] Darlene Hernandez, ) Anxiety Bipolar disorder Chest pain Closed right ankle fracture Depression DVT (deep venous thrombosis) GERD (gastroesophageal reflux disease) Hypertension Hypothyroidism Neuropathy Seizures Smoker Tubal ectopic Urinary retention with incomplete bladder emptying Home Medications levothyroxine 50 mcg PO DAILY 12/18/15 [History Last Taken 02/15/16 09:00] propranolol 40 mg PO DAILY 12/18/15 [History Last Taken 02/15/16 09:00] warfarin [Jantoven] 2.5 mg PO MOTUTHFRSA 11/09/16 [History Last Taken Unknown] celecoxib 200 mg PO DAILY 05/11/19 [History Last Taken Unknown] zolpidem 5 mg PO QHS PRN 05/11/19 [History Last Taken Unknown] Multivitamin Women 50 Plus Tab 1 tablet PO DAILY 06/07/20 [History Last Taken Unknown] diphenhydramine HCl 25 mg PO Q6H PRN PRN 06/07/20 [History Last Taken Unknown] diphenoxylate-atropine 1 each PO 4X/DAY PRN 06/07/20 [History Last Taken Unknown] duloxetine 30 mg PO DAILY 06/07/20 [History Last Taken Unknown] diphenhydramine HCl [Banophen] 25 mg PO Q6H PRN 03/02/21 [History Last Taken Unknown] diphenoxylate-atropine [Lomotil] 1 tab PO DAILY PRN 03/02/21 [History Last Taken Unknown] hydrocodone-acetaminophen 1 tab PO Q4H PRN PRN 2 Days #10 tablet 03/02/21 [Rx Last Taken Unknown] Allergy/AdvReac Type Severity Reaction Status Date / Time aspirin Allergy Swelling,HIVES,THROAT Verified 03/01/21 21:57 SWELLING bee venom protein (honey bee) Allergy Hives Verified 03/01/21 21:57 bupropion [From Wellbutrin] Allergy Shortness Verified 03/01/21 21:57 of breath PARMESAN CHEESE Allergy Anaphylaxis Uncoded 03/02/21 00:16 Surgical History (Updated 03/02/21 @ 00:12 by Nora Carpio) H/O colectomy Social History Smoking Status: Current every day smoker tobacco type: cigarettes ROS ROS ED Review of Systems ROS Unobtainable: other Constitutional Constitutional ED: Reports lethargy; Denies chills, fever(s), sweats or weight loss Eyes Eyes: Denies blurry vision, change in vision or diplopia ENT ENT ED: Denies rhinorrhea or sore throat Cardiovascular Cardiovascular: Reports chest pain and racing heartbeat; Denies orthopnea Respiratory/Chest Respiratory/Chest: Reports dyspnea and dyspnea on exertion; Denies cough, orthopnea or sputum Gastrointestinal Gastrointestinal: Denies abdominal pain, diarrhea, nausea or vomiting Genitourinary Genitourinary ED: Denies dysuria, hematuria or urinary frequency Musculoskeletal Musculoskeletal: Denies arthralgias, back pain, myalgias or neck pain Integumentary Denies abscess, Abrasions or rash Neurologic Neurologic: Denies headache(s) or weakness Psychiatric Psychiatric: Denies anxiety, depression or suicidal thoughts Endocrine Endocrinology: Denies polydipsia, polyphagia or polyuria Hematologic/Lymphatic Hematologic/Lymphatic: Denies easy bleeding, easy bruising or lymphadenopathy Allergic/Immunologic Allergic/Immunologic ED: Denies mouth swelling, tongue swelling or urticaria EXAM Physical Exam Const Vital Signs: 03/01/21 21:53 03/02/21 00:00 Temperature 98 F Temperature Source Temporal Pulse Rate 72 Respiratory Rate 16 Respiratory Effort Short of Breath Respiratory Pattern Normal Blood Pressure 124/89 H Blood Pressure Mean 100 Pulse Ox 96 Oxygen Delivery Method Room Air Room Air Positive well nourished and well developed General Appearance ED: well developed and NAD HEENT Reports TM's clear and moist mucous membranes normocephalic and atraumatic; Negative for trauma or tenderness Tympanic Membrane ED: Yes TM's clear Eyes PERRL and EOMs intact bilaterally General Eye ED: Negative for pale conjunctiva or scleral icterus Neck no lymphadenopathy, supple and no JVD General: Negative for tenderness Chest Wall palpation of chest normal Chest Narrative: Patient has tenderness palpation of the left anterior chest wall. No crepitus or subcu edema noted. There is no rash on exam. Chest: Negative for tenderness Resp normal respiratory effort and clear to auscultation bilaterally Effort and Inspection: Negative for respiratory distress or pain with movement Auscultation: Negative for rhonchi, wheezes or diminished lung sounds Cardio regular rate, regular rhythm, S1 normal heart sound, S2 normal heart sound and no murmurs Peripheral Pulses: pulses 2+ throughout GI normal to inspection, nondistended, normoactive bowel sounds, soft to palpation, non-tender, non-distended and no masses Back/Spine no CVA tenderness and no thoracic nor lumbar tenderness Extremity normal to inspection General Extremety ED: Negative for edema General Extremity: Negative for edema Neuro oriented x3, CN's II-XII intact bilaterally, no sensory deficits noted and gait normal Sensorium / Orientation: awake, alert, oriented to person, oriented to place and oriented to time Motor Exam: strength 5/5 throughout and strength abnormal Psych mental status grossly normal Skin no rashes or lesions noted and no wounds Heart Score History: Slightly/Non-Suspicious ECG: Normal Age: >45 - <65 years Risk Factors: 1 or 2 Risk Factors Troponin: </= Normal Limit Score: 2 MDM MDM MDM Narrative Medical decision making narrative: IV line established on arrival. Lab work-up was unremarkable. EKG was unremarkable. Patient's heart score is a 2. I feel she is low risk for acute coronary syndrome. Her pain is atypical and she has had continuous pain for 2 days and has a normal EKG and normal troponin. Patient's pain is somewhat reproducible on palpation of her chest wall. Suspicion is low for PE given that she is already anticoagulated with Coumadin. I suspect likely musculoskeletal chest pain. Patient has no evidence of pericarditis on the EKG. Her sed rate is just minimally elevated and comparable to June 2020. Patient advised to follow-up with her primary care physician within next 3 to 5 days. She is advised to return if worsening pain, increasing shortness of breath, exertional dyspnea, or conditions worsen anyway. Lab Data Attestation: I reviewed the patient's lab results. Labs: Laboratory Results - last 24 hr 03/01/21 03/01/21 03/01/21 23:40 23:40 23:40 WBC 7.4 RBC 4.89 Hgb 14.9 Hct 45.3 MCV 92.6 MCH 30.5 MCHC 32.9 RDW Std Deviation 47.4 H RDW Coeff of Nessa 13.8 Plt Count 178 MPV 10.2 Immature Gran % (Auto) 0.100 Neut % (Auto) 41.9 L Lymph % (Auto) 47.7 H [place] % (Auto) 5.6 Eos % (Auto) 3.3 Baso % (Auto) 1.4 H Absolute Neuts (auto) 3.1 Absolute Lymphs (auto) 3.51 Nucleated RBC % 0 ESR 33 H PT 20.7 H INR 1.9 Sodium 140 Potassium 4.4 Chloride 108 H Carbon Dioxide 26.0 Anion Gap 6 BUN 13 Creatinine 0.96 Estim Creat Clear Calc 43.64 Est GFR (MDRD) Af Amer 75 Est GFR (MDRD) Non-Af 62 BUN/Creatinine Ratio 13.5 Glucose 88 Calcium 9.4 Troponin I High Sens 3 Radiography Chest X-Ray - ED: 1 View Diagnostic Testing: Clinical Impression(s) from Imaging Studies Chest X-Ray 03/01/21 23:20 IMPRESSION: No radiographic evidence of acute cardiopulmonary disease. Electronically Signed: Humberto Herring MD at 23:54 EST Tel , Service support , 1 view chest x-ray obtained interpreted by myself as no acute disease process. Radiology in agreement. EKG Initial EKG: Attestation: I personally reviewed and interpreted this EKG as follows: Comments: Sinus rhythm with a ventricular rate of 73 bpm with no evidence for pericarditis Discharge Plan Triage Chief Complaint: Chest Pain ED Provider: Darlene Hernandez Dx/Rx/DC Orders Clinical Impression: Chest pain Instructions: ED Chest Pain, Uncertain Cause, ED Chest Wall Pain, Costochondritis Prescriptions: New hydrocodone-acetaminophen [hydrocodone-acetaminophen] 1 TABLET tablet 1 tab PO Q4H PRN PRN (Reason: Pain) 2 Days Qty: 10 RF: 0 No Action propranolol 40 MG tablet 40 mg PO DAILY RF: 0 levothyroxine 50 MCG tablet 50 mcg PO DAILY RF: 0 warfarin [Jantoven] 2.5 MG tablet 2.5 mg PO MOTUTHFRSA RF: 0 zolpidem 5 MG tablet 5 mg PO QHS PRN (Reason: Sleep) RF: 0 celecoxib 50 MG capsule 200 mg PO DAILY RF: 0 diphenhydramine HCl 25 MG capsule 25 mg PO Q6H PRN PRN (Reason: Allergies) RF: 0 duloxetine 30 MG capsule,delayed release(DR/EC) 30 mg PO DAILY RF: 0 diphenoxylate-atropine 1 EACH tablet 1 each PO 4X/DAY PRN (Reason: Diarreha) RF: 0 Multivitamin Women 50 Plus Tab 1 tablet PO DAILY RF: 0 diphenoxylate-atropine [Lomotil] 2.5-0.025 mg Tablet 1 tab PO DAILY PRN (Reason: Diarrhea) RF: 0 diphenhydramine HCl [Banophen] 25 mg Capsule 25 mg PO Q6H PRN (Reason: ALLERGIES) RF: 0 Primary Care Provider: Stew Berg Referrals: Stew Berg MD [Primary Care Provider] - Disposition Disposition: Home, Self Care
--- NOTE | 2021-03-01 23:20 | RAD_ITS ---
EXAM: XR CHEST, 1 VIEW CLINICAL INDICATION: chest pain TECHNIQUE: Frontal view of the chest. This report was created using [employer] report generation technology. COMPARISON: None. FINDINGS: LUNGS AND PLEURAL SPACES: Unremarkable. No consolidation or edema. No pneumothorax. No effusion. HEART: Unremarkable. Cardiac silhouette not enlarged. MEDIASTINUM: Central airways and mediastinal contour are unremarkable. Atherosclerotic calcifications of the nonenlarged thoracic aortic arch. BONES/JOINTS: Unremarkable. SOFT TISSUES: Unremarkable. RAD/Chest 1 View (Portable) IMPRESSION: No radiographic evidence of acute cardiopulmonary disease. Electronically Signed: Humberto Herring MD at 23:54 EST Tel , Service support ,
[2021-03-01 23:55] LABS: Absolute Lymphocyte Count 3.51 X10^3/uL (0.83-4.51); Absolute Neutrophil Count 3.1 X10^3/uL (2.0-7.7); Basophil% 1.4 % (0-1); Eosinophil# 0.24 X10^3/uL; Eosinophils% 3.3 % (0-5); Hematocrit 45.3 % (37-47); Hemoglobin 14.9 g/dL (12.0-15.0); Lymphocyte # 3.51 X10^3/ul (0.83-4.51); Lymphocyte % 47.7 % (19-41); Mean Corp Hgb Conc 32.9 g/dL (32-36); Mean Corpuscular Hgb 30.5 pg (27.0-32.0); Mean Corpuscular Volume 92.6 fL (81-99); Mean Platelet Vol. 10.2 fl (6.2-12.0); Monocyte# 0.41 X10^3/uL; Monocyte% 5.6 % (0-10); NRBC Flagged by Analyzer 0 % (0-5); Neutrophil # 3.09 X10^3/uL (2.7-7.7); Neutrophil % 41.9 % (47-70); Platelet Count 178 K/mm3 (150-450); RBC Distribution Width CV 13.8 % (11.6-14.6); RBC Distribution Width SD 47.4 fl (35.1-43.9); Red Blood Count 4.89 M/mm3 (4.2-5.4); White Blood Count 7.4 K/mm3 (4.4-11.0)
[2021-03-01] MEDS: 0.9% Normal Saline 1,000 ML 150 ML IV (23:55)
[2021-03-02 00:01] LABS: Erythrocyte Sedimentation Rate 33 mm/hr (0-30)
[2021-03-02 00:04] LABS: International Normalized Ratio 1.9; Prothrombin Time (Protime)PT. 20.7 SECONDS (11.7-14.9)
[2021-03-02 00:15] LABS: Anion Gap 6 (5-15); BUN 13 mg/dL (7-18); BUN/Creat Ratio 13.5 RATIO (10-20); Calcium,Total 9.4 mg/dL (8.5-10.1); Chloride 108 mmol/L (98-107); Creatinine, Serum 0.96 mg/dL (0.55-1.02); EST Glomerular Filtration Rate 62 mL/min (>60); Est Glom Filt Rate - Afr Amer 75 mL/min (>60); Estimated Creatinine Clearance 43.64 ml/min; Glucose 88 mg/dL (74-106); Potassium 4.4 mmol/L (3.5-5.1); Sodium Level 140 mmol/L (136-145); Troponin-I HS 3 pg/mL (3.0-54.0)
[2021-03-02 00:27] VITALS: BP 120/55; PULSE 55; PULSE 56; RESP 12; RESP 13; O2SAT 97
== END 2021-03-02 00:37 | disposition home or self-care (01) ==
PROVIDERS: Emergency Provider Emergency Medicine; PCP Family Medicine
DX: R07.9 Chest pain, unspecified (principal); R05.3 Chronic cough; R06.00 Dyspnea, unspecified; I10 Essential (primary) hypertension; E03.9 Hypothyroidism, unspecified; F31.9 Bipolar disorder, unspecified; F41.9 Anxiety disorder, unspecified; G62.9 Polyneuropathy, unspecified; K21.9 Gastro-esophageal reflux disease without esophagitis; G40.909 Epilepsy, unspecified, not intractable, without status epilepticus; Z86.718 Personal history of other venous thrombosis and embolism; Z79.01 Long term (current) use of anticoagulants; Z79.899 Other long term (current) drug therapy; F17.210 Nicotine dependence, cigarettes, uncomplicated
CPT/HCPCS: 71045; 80048; 84484; 85025; 85610; 85652; 93005; 96360; 99285; J7030; A4216

== ENCOUNTER 2021-04-25 13:11 | Emergency (ER) | payer MEDICARE, MEDICAID, SELFPAY ==
[2021-04-25 13:11] VITALS: BP 133/84; PULSE 62; RESP 15; TEMP 36.3; O2SAT 99; BMI 28.3
--- NOTE | 2021-04-25 13:24 | EKG12_ITS ---
Test Reason : CHEST PAIN Blood Pressure : / mmHG Vent. Rate : 064 BPM Atrial Rate : 064 BPM P-R Int : 174 ms QRS Dur : 068 ms QT Int : 402 ms P-R-T Axes : 081 069 068 degrees QTc Int : 414 ms Normal sinus rhythm Low voltage QRS Confirmed by VIOLETA CATALAN, TIMOTEO ([id number]), editor producer LYLE STEVENSON ([id number]) on 04/28/2021 1:55:56 PM Referred By: DEJAN Confirmed By:TIMOTEO MCDANIEL MD
--- NOTE | 2021-04-25 13:31 | RAD_ITS ---
EXAM: XR CHEST, 1 VIEW CLINICAL INDICATION: CP TECHNIQUE: Frontal view of the chest. This report was created using [employer] report generation technology. COMPARISON: 03/01/2021. FINDINGS: LUNGS AND PLEURAL SPACES: Mild pulmonary hyperinflation with mild flattening of the hemidiaphragms. No suspicious infiltrates. No pneumothorax. No effusion. HEART: Unremarkable. Cardiac silhouette not enlarged. MEDIASTINUM: Central airways and mediastinal contour are unremarkable. BONES/JOINTS: Unremarkable. SOFT TISSUES: Unremarkable. RAD/Chest 1 View IMPRESSION: No acute findings in the chest and unchanged since 03/01/2021. Electronically Signed: Cristian Rashid MD at 14:28 EST ,
[2021-04-25 14:27] VITALS: BP 140/81; PULSE 62; RESP 18
--- NOTE | 2021-04-25 14:29 | EKG12_ITS ---
Test Reason : Blood Pressure : / mmHG Vent. Rate : 060 BPM Atrial Rate : 060 BPM P-R Int : 188 ms QRS Dur : 068 ms QT Int : 416 ms P-R-T Axes : 072 061 057 degrees QTc Int : 416 ms Normal sinus rhythm Low voltage QRS Confirmed by VIOLETA CATALAN, TIMOTEO ([id number]), editorial intern LYLE STEVENSON ([id number]) on 04/28/2021 9:40:48 AM Referred By: JOSEPH Confirmed By:TIMOTEO MCDANIEL MD
--- NOTE | 2021-04-25 14:30 | EDS_ITS ---
HPI History of Present Illness Chief Complaint: Chest Pain Informant: patient Narrative Narrative: 61-year-old female presenting with chest pain. She states this started yesterday. Today she has had intermittent left-sided chest pain with radiation to her left armpit. She has associated nausea. Denies shortness of breath or diaphoresis. She has a history of previous DVT and is currently on Coumadin. She states her last stress test she believes was in 2006. She has a history of hypertension, smoking, hypercholesterolemia, family history of heart disease. Prior Similar Symptoms: Yes Recent Illness/Hospitalization: No CVD Risk Factors: Positive for Hypertension, Hypercholesterolemia, Family History 1' </=55 and Smoking PE Risk Factors: Positive for Prior DVT or PE; Negative for Recent Travel/Surgery, Recent Immobilization and Cancer [facility] Medical History (Updated 04/25/21 @ 19:[address] Paris Prescott MD) Anxiety Bipolar disorder Chest pain Closed right ankle fracture Depression DVT (deep venous thrombosis) GERD (gastroesophageal reflux disease) Hypertension Hypothyroidism Neuropathy Seizures Smoker Tubal ectopic Urinary retention with incomplete bladder emptying Home Medications levothyroxine 50 mcg PO DAILY 12/18/15 [History Last Taken 02/15/16 09:00] propranolol 40 mg PO DAILY 12/18/15 [History Last Taken 02/15/16 09:00] warfarin [Jantoven] 2.5 mg PO MOTUTHFRSA 11/09/16 [History Last Taken Unknown] celecoxib 200 mg PO DAILY 05/11/19 [History Last Taken Unknown] zolpidem 5 mg PO QHS PRN 05/11/19 [History Last Taken Unknown] Multivitamin Women 50 Plus Tab 1 tablet PO DAILY 06/07/20 [History Last Taken Unknown] diphenhydramine HCl 25 mg PO Q6H PRN PRN 06/07/20 [History Last Taken Unknown] diphenoxylate-atropine 1 each PO 4X/DAY PRN 06/07/20 [History Last Taken Unknown] duloxetine 30 mg PO DAILY 06/07/20 [History Last Taken Unknown] diphenhydramine HCl [Banophen] 25 mg PO Q6H PRN 03/02/21 [History Last Taken Unknown] diphenoxylate-atropine [Lomotil] 1 tab PO DAILY PRN 03/02/21 [History Last Taken Unknown] hydrocodone-acetaminophen 1 tab PO Q4H PRN PRN 2 Days #10 tablet 03/02/21 [Rx Last Taken Unknown] Allergy/AdvReac Type Severity Reaction Status Date / Time aspirin Allergy Swelling,HIVES,THROAT Verified 04/25/21 13:13 SWELLING bee venom protein (honey bee) Allergy Hives Verified 04/25/21 13:13 bupropion [From Wellbutrin] Allergy Shortness Verified 04/25/21 13:13 of breath PARMESAN CHEESE Allergy Anaphylaxis Uncoded 04/25/21 13:13 Surgical History H/O colectomy Social History Smoking Status: Current every day smoker tobacco type: cigarettes ROS ROS ED Constitutional Constitutional ED: Denies fever(s) Eyes Eyes: Denies change in vision ENT ENT ED: Denies rhinorrhea or sore throat Cardiovascular Cardiovascular: Reports chest pain; Denies palpitations Respiratory/Chest Respiratory/Chest: Denies cough or dyspnea Gastrointestinal Gastrointestinal: Reports nausea; Denies abdominal pain, diarrhea or vomiting Genitourinary Genitourinary ED: Denies dysuria Musculoskeletal Musculoskeletal: Denies myalgias Integumentary Denies rash Neurologic Neurologic: Denies headache(s) Psychiatric Psychiatric: Denies suicidal thoughts EXAM Physical Exam Const Vital Signs: 04/25/21 13:11 04/25/21 13:52 04/25/21 14:27 Temperature 97.4 F L Temperature Source Temporal Pulse Rate 62 62 Respiratory Rate 15 18 Respiratory Effort Non-Labored Short of Breath Blood Pressure 133/84 H 140/81 H Blood Pressure Mean 100 100 Pulse Ox 99 Oxygen Delivery Method Room Air 04/25/21 14:56 04/25/21 15:05 04/25/21 16:24 Temperature Temperature Source Pulse Rate 61 61 Respiratory Rate 19 H 13 Respiratory Effort Blood Pressure 127/66 H 132/85 H Blood Pressure Mean 86 100 Pulse Ox 94 95 Oxygen Delivery Method Room Air Room Air Room Air 04/25/21 17:52 Temperature Temperature Source Pulse Rate 59 L Respiratory Rate 16 Respiratory Effort Blood Pressure 122/70 H Blood Pressure Mean 87 Pulse Ox 94 Oxygen Delivery Method Room Air Positive well nourished and well developed General Appearance ED: well developed HEENT Reports normocephalic and head/scalp atraumatic Eyes PERRL and EOMs intact bilaterally Neck supple General: Negative for tenderness Chest Wall inspection of chest normal Resp normal respiratory effort and clear to auscultation bilaterally Cardio regular rate and regular rhythm GI non-tender and non-distended Palpation: soft; Negative for guarding or rebound tenderness present no CVA tenderness Extremity normal to inspection Neuro oriented x3 Sensorium / Orientation: alert Psych mental status grossly normal Skin no rashes or lesions noted Heart Score History: Moderately Suspicious ECG: Normal Age: >45 - <65 years Risk Factors: >/= 3 Risk Factors or History of CAD Score: 4 MDM MDM MDM Narrative Medical decision making narrative: Patient has an allergy to aspirin with reaction of throat swelling. She was given morphine, Zofran IV. EKG is sinus rhythm rate of 64 with no acute ischemic changes. Chest x-ray read by myself and radiology shows no acute process. CBC, chemistries unremarkable. Troponin is negative. INR is 1.5. Delta troponin is negative. Due to patient's subtherapeutic INR and history of DVT, recommend CTA chest to rule out PE. Patient was initially agreeable to this plan. She later told the nurse she needs to leave immediately from the emergency department and eloped prior to signing paperwork or having CT performed. Lab Data Attestation: I reviewed the patient's lab results. Labs: Laboratory Results - last 24 hr 04/25/21 04/25/21 04/25/21 14:48 14:48 14:48 WBC 6.9 RBC 4.99 Hgb 15.5 H Hct 45.8 MCV 91.8 MCH 31.1 MCHC 33.8 RDW Std Deviation 45.5 H RDW Coeff of Nessa 13.5 Plt Count 200 MPV 10.0 Immature Gran % (Auto) 0.100 Neut % (Auto) 57.9 Lymph % (Auto) 33.3 [place] % (Auto) 4.8 Eos % (Auto) 2.9 Baso % (Auto) 1.0 Absolute Neuts (auto) 4.0 Absolute Lymphs (auto) 2.28 Nucleated RBC % 0 PT 17.4 H INR 1.5 Sodium 141 Potassium 4.0 Chloride 108 H Carbon Dioxide 27.0 Anion Gap 6 BUN 20 H Creatinine 0.88 Estim Creat Clear Calc 47.00 Est GFR (MDRD) Af Amer 83 Est GFR (MDRD) Non-Af 69 BUN/Creatinine Ratio 22.7 H Glucose 87 Calcium 9.6 Troponin I High Sens 4 04/25/21 17:20 WBC RBC Hgb Hct MCV MCH MCHC RDW Std Deviation RDW Coeff of Nessa Plt Count MPV Immature Gran % (Auto) Neut % (Auto) Lymph % (Auto) [place] % (Auto) Eos % (Auto) Baso % (Auto) Absolute Neuts (auto) Absolute Lymphs (auto) Nucleated RBC % PT INR Sodium Potassium Chloride Carbon Dioxide Anion Gap BUN Creatinine Estim Creat Clear Calc Est GFR (MDRD) Af Amer Est GFR (MDRD) Non-Af BUN/Creatinine Ratio Glucose Calcium Troponin I High Sens 4 Radiography Chest X-Ray - ED: 1 View, Read by ED Physician and Read by Radiologist Diagnostic Testing: Clinical Impression(s) from Imaging Studies Chest X-Ray 04/25/21 13:31 IMPRESSION: No acute findings in the chest and unchanged since 03/01/2021. Electronically Signed: Cristian Rashid MD at 14:28 EST Reading Location ID and State: [address] [place] [address] , Service support , Discharge Plan Triage Chief Complaint: Chest Pain ED Provider: Paris Prescott Dx/Rx/DC Orders Clinical Impression: Chest pain, Left against medical advice Prescriptions: No Action propranolol 40 MG tablet 40 mg PO DAILY RF: 0 levothyroxine 50 MCG tablet 50 mcg PO DAILY RF: 0 warfarin [Jantoven] 2.5 MG tablet 2.5 mg PO MOTUTHFRSA RF: 0 zolpidem 5 MG tablet 5 mg PO QHS PRN (Reason: Sleep) RF: 0 celecoxib 50 MG capsule 200 mg PO DAILY RF: 0 diphenhydramine HCl 25 MG capsule 25 mg PO Q6H PRN PRN (Reason: Allergies) RF: 0 duloxetine 30 MG capsule,delayed release(DR/EC) 30 mg PO DAILY RF: 0 diphenoxylate-atropine 1 EACH tablet 1 each PO 4X/DAY PRN (Reason: Diarreha) RF: 0 Multivitamin Women 50 Plus Tab 1 tablet PO DAILY RF: 0 diphenoxylate-atropine [Lomotil] 2.5-0.025 mg Tablet 1 tab PO DAILY PRN (Reason: Diarrhea) RF: 0 diphenhydramine HCl [Banophen] 25 mg Capsule 25 mg PO Q6H PRN (Reason: ALLERGIES) RF: 0 hydrocodone-acetaminophen [hydrocodone-acetaminophen] 1 TABLET tablet 1 tab PO Q4H PRN PRN (Reason: Pain) 2 Days Qty: 10 RF: 0 Primary Care Provider: Stew Berg Referrals: Stew Berg MD [Primary Care Provider] - Disposition Disposition: Against Medical Advice Discharge Date/Time: 04/25/21 19:02
[2021-04-25] MEDS: Morphine 4 MG/ML Syringe IV (14:54)
[2021-04-25] MEDS: Ondansetron 4 MG/2 ML Vial IV (14:54)
[2021-04-25 15:05] VITALS: BP 127/66; PULSE 61; RESP 19; O2SAT 94
[2021-04-25 15:11] LABS: Absolute Lymphocyte Count 2.28 X10^3/uL (0.83-4.51); Basophil# 0.07 X10^3/uL; Eosinophils% 2.9 % (0-5); Hematocrit 45.8 % (37-47); Hemoglobin 15.5 g/dL (12.0-15.0); Lymphocyte # 2.28 X10^3/ul (0.83-4.51); Lymphocyte % 33.3 % (19-41); Mean Corp Hgb Conc 33.8 g/dL (32-36); Mean Corpuscular Hgb 31.1 pg (27.0-32.0); Mean Corpuscular Volume 91.8 fL (81-99); Monocyte# 0.33 X10^3/uL; Monocyte% 4.8 % (0-10); NRBC Flagged by Analyzer 0 % (0-5); Neutrophil # 3.96 X10^3/uL (2.7-7.7); Neutrophil % 57.9 % (47-70); Platelet Count 200 K/mm3 (150-450); RBC Distribution Width CV 13.5 % (11.6-14.6); RBC Distribution Width SD 45.5 fl (35.1-43.9); Red Blood Count 4.99 M/mm3 (4.2-5.4); White Blood Count 6.9 K/mm3 (4.4-11.0)
[2021-04-25 15:27] LABS: Anion Gap 6 (5-15); BUN 20 mg/dL (7-18); BUN/Creat Ratio 22.7 RATIO (10-20); Calcium,Total 9.6 mg/dL (8.5-10.1); Chloride 108 mmol/L (98-107); Creatinine, Serum 0.88 mg/dL (0.55-1.02); EST Glomerular Filtration Rate 69 mL/min (>60); Est Glom Filt Rate - Afr Amer 83 mL/min (>60); Glucose 87 mg/dL (74-106); Sodium Level 141 mmol/L (136-145); Troponin-I HS 4 pg/mL (3.0-54.0)
[2021-04-25 15:34] LABS: International Normalized Ratio 1.5; Prothrombin Time (Protime)PT. 17.4 SECONDS (11.7-14.9)
[2021-04-25 16:24] VITALS: BP 132/85; PULSE 61; RESP 13; O2SAT 95
[2021-04-25 17:50] LABS: Troponin-I HS 4 pg/mL (3.0-54.0)
[2021-04-25 17:52] VITALS: BP 122/70; PULSE 59; RESP 16; O2SAT 94
--- NOTE | 2021-04-25 19:00 | ED.RN ---
. WESLY BEEN HERE 8 HOURS, MY DOGGIES NEED ME. I GUESS THE NEXT TIME I AM IN PAIN I JUST WILL STAY HOME.
== END 2021-04-25 19:02 | disposition left against medical advice (07) ==
PROVIDERS: Emergency Provider Emergency Medicine; PCP Family Medicine; Visit Provider Emergency Medicine
DX: R07.9 Chest pain, unspecified (principal); F31.9 Bipolar disorder, unspecified; G40.909 Epilepsy, unspecified, not intractable, without status epilepticus; Z86.718 Personal history of other venous thrombosis and embolism; Z79.01 Long term (current) use of anticoagulants; F41.9 Anxiety disorder, unspecified; K21.9 Gastro-esophageal reflux disease without esophagitis; I10 Essential (primary) hypertension; E03.9 Hypothyroidism, unspecified; G62.9 Polyneuropathy, unspecified; Z79.899 Other long term (current) drug therapy; F17.210 Nicotine dependence, cigarettes, uncomplicated
CPT/HCPCS: 71045; 80048; 84484; 85025; 85610; 93005; 96374; 96375; 99284; A4216; J2405

== ENCOUNTER 2022-06-15 11:52 | Emergency (ER) | payer MEDICARE, MEDICAID, SELFPAY ==
[2022-06-15 11:54] VITALS: BP 127/71; PULSE 69; RESP 20; TEMP 37.2; O2SAT 98; BMI 32.7
--- NOTE | 2022-06-15 12:15 | CT_ITS ---
STUDY: CT BRAIN WITHOUT CONTRAST REASON FOR EXAM: Female, 62 years old. Headache after trauma RADIATION DOSAGE (If Supplied By Facility): CTDIvol = ( 44.99 ) mGy, DLP = ( 779.24 ) mGycm TECHNIQUE: Transaxial CT imaging of the brain was performed without administration of intravenous contrast material. Individualized dose optimization techniques were used for this CT. COMPARISON: MR brain from 06/07/2020 FINDINGS: Normal soft tissue structures. Normal calvarium. There is mild cerebral atrophy with widening of the extra-axial spaces and ventricular dilatation. There are areas of decreased attenuation within the white matter tracts of the supratentorial brain, consistent with microvascular disease changes. Normal basal ganglia and thalami. Normal brainstem. Normal cerebellum. There is no intracranial hemorrhage. There are no findings of an acute ischemic infarction. There is an air-fluid level in the left maxillary sinus suggesting acute maxillary sinusitis. Mucosal thickening noted in the left sphenoid sinus CT/Brain/Head without Contrast IMPRESSION: Chronic involutional changes of the brain. No acute hemorrhage Paranasal sinusitis Electronically Signed: Onesimo Avery MD at 12:59 EDT ,
--- NOTE | 2022-06-15 12:35 | RAD_ITS ---
STUDY: X-RAY - UNILATERAL RIBS ( LEFT ) WITH CHEST REASON FOR EXAM: Female, 62 years old. Fall TECHNIQUE - RIBS: 4 view(s) of the ribs. TECHNIQUE - CHEST: Single PA view of the chest. COMPARISON: 04/25/2021 FINDINGS - RIBS: Normal visualized ribs without a demonstrated fracture. FINDINGS - CHEST: The lungs are clear and expanded. There is no demonstrated pleural abnormality. Normal size heart. Normal mediastinum and vilma. Normal visualized pulmonary arteries. Normal visualized aortic arch and descending thoracic aorta. Normal visualized thoracic spine. Normal visualized ribs, clavicles, and shoulders. There is no demonstrated abnormality of the visualized soft tissue structures of the upper abdomen. RAD/Ribs Uni Min 3V w/PA Chest IMPRESSION: RIBS: Normal x-ray examination of the ribs. CHEST: Normal x-ray examination of the chest. Electronically Signed: Onesimo Avery MD at 13:00 EDT ,
--- NOTE | 2022-06-15 12:46 | ED.VIS.FALL ---
HPI HPI - Fall History of Present Illness Chief Complaint: Chest Other Occured/Mechanism Occurred: Weeks (1) Narrative: Patient presents after a fall that occurred last week. Patient states she fell down some steps. Patient hit her head at that time. Patient is on Coumadin. Patient also injured the left side of her chest when she fell. Patient states her pain is aching. Patient states it is worse when she moves her left arm. Patient states it is also worse with deep breathing. Patient denies any loss of consciousness. Patient states her pain radiates into her left upper back under her shoulder blade. Patient states Tylenol has been helping with the pain. Patient denies any shortness of breath. Fall down steps #: 1 flight Pain/Injury Location: Left chest and head Pain Location: head and chest Quality of Pain: Aching Worsened by: Movement of her left arm and deep breathing Relieved by: Tylenol Associated Symptoms Associated Symptoms: Negative for Parasthesias, Weakness, Loss of function, Inability to ambulate or Loss of consciousness PFSH PFSH Medical History Anxiety Bipolar disorder Chest pain Closed right ankle fracture Depression DVT (deep venous thrombosis) GERD (gastroesophageal reflux disease) Hypertension Hypothyroidism Neuropathy Seizures Smoker Tubal ectopic Urinary retention with incomplete bladder emptying Home Medications levothyroxine 50 mcg tablet 50 mcg PO DAILY Thyroid 12/18/15 [History Last Taken 02/15/16 09:00] propranolol 40 mg tablet 40 mg PO DAILY BP 12/18/15 [History Last Taken 02/15/16 09:00] warfarin 2.5 mg tablet (Jantoven) 2.5 mg PO [facility] Blood 11/09/16 [History Last Taken Unknown] celecoxib 50 mg capsule 200 mg PO DAILY Depression 05/11/19 [History Last Taken Unknown] zolpidem 5 mg tablet 5 mg PO QHS PRN Sleep 05/11/19 [History Last Taken Unknown] Multivitamin Women 50 Plus Tab 1 tablet PO DAILY Supplement 06/07/20 [History Last Taken Unknown] diphenhydramine HCl 25 mg capsule 25 mg PO Q6H PRN PRN Allergies 06/07/20 [History Last Taken Unknown] diphenoxylate-atropine 2.5 mg-0.025 mg tablet 1 each PO 4X/DAY PRN Diarreha 06/07/20 [History Last Taken Unknown] duloxetine 30 mg capsule,delayed release 30 mg PO DAILY Depression 06/07/20 [History Last Taken Unknown] diphenhydramine HCl 25 mg capsule (Banophen) 25 mg PO Q6H PRN ALLERGIES 03/02/21 [History Last Taken Unknown] diphenoxylate-atropine 2.5 mg-0.025 mg tablet (Lomotil) 1 tab PO DAILY PRN Diarrhea 03/02/21 [History Last Taken Unknown] hydrocodone-acetaminophen 5-325mg 5mg-325mg 1 tab PO Q4H PRN PRN Pain 2 days #10 TABLETS 03/02/21 [Rx Last Taken Unknown] Allergy/AdvReac Type Severity Reaction Status Date / Time aspirin Allergy Swelling,HIVES,THROAT Verified 06/15/22 11:58 SWELLING bee venom protein (honey bee) Allergy Hives Verified 06/15/22 11:58 bupropion [From Wellbutrin] Allergy Shortness Verified 06/15/22 11:58 of breath PARMESAN CHEESE Allergy Anaphylaxis Uncoded 06/15/22 11:58 Surgical History H/O colectomy Social History Smoking Status: Current every day smoker tobacco type: cigarettes ROS ROS ED Constitutional Constitutional ED: Denies chills or fever(s) Eyes Eyes: Denies blurry vision or change in vision ENT ENT ED: Denies rhinorrhea or sore throat Cardiovascular Cardiovascular: Reports chest pain; Denies palpitations Respiratory/Chest Respiratory/Chest: Reports cough; Denies dyspnea Gastrointestinal Gastrointestinal: Denies nausea or vomiting Genitourinary Genitourinary ED: Reports urinary frequency; Denies dysuria or hematuria Musculoskeletal Musculoskeletal: Reports back pain; Denies neck pain Integumentary Denies abscess or rash Neurologic Neurologic: Reports headache(s); Denies weakness Allergic/Immunologic Allergic/Immunologic ED: Denies mouth swelling or urticaria EXAM Physical Exam Const Vital Signs: 06/15/22 11:54 Temperature 99.0 F Temperature Source Temporal Pulse Rate 69 Respiratory Rate 20 H Blood Pressure 127/71 H Blood Pressure Mean 89 Pulse Ox 98 Oxygen Delivery Method Room Air Positive well nourished and well developed General Appearance ED: well developed and NAD HEENT Reports normocephalic Eyes PERRL and EOMs intact bilaterally Neck full ROM and supple Chest Wall Chest Narrative: There is tenderness over the left upper chest. There is no bony crepitance or step-off. There is no subcutaneous emphysema noted. Resp normal respiratory effort and clear to auscultation bilaterally Cardio regular rate and regular rhythm GI non-tender and non-distended Palpation: soft Neuro oriented x3, CN's II-XII intact bilaterally, moves all extremities, no focal motor deficits and no sensory deficits noted Psych mental status grossly normal and thought process normal MDM MDM MDM Narrative Medical decision making narrative: Differential diagnosis includes intracranial bleeding, closed head injury, rib fracture, and pneumothorax. CT scan of the brain will be obtained to assess for intracranial bleeding. X-rays of the left ribs will be obtained to assess for rib fracture and pneumothorax. Radiography Diagnostic Testing: Clinical Impression(s) from Imaging Studies Brain CT 06/15/22 12:15 IMPRESSION: Chronic involutional changes of the brain. No acute hemorrhage Paranasal sinusitis Electronically Signed: Onesimo Avery MD at 12:59 EDT , Ribs w/Chest X-Ray 06/15/22 12:35 IMPRESSION: RIBS: Normal x-ray examination of the ribs. CHEST: Normal x-ray examination of the chest. Electronically Signed: Onesimo Avery MD at 13:00 EDT , X-rays of the right ribs were obtained. There are 5 views. On my independent interpretation, there is no acute fracture. There is no pneumothorax. There is no pleural effusion noted. There is no acute cardiopulmonary process noted. Radiologist also interpreted the x-rays and agrees. CT scan of the brain was obtained. There is no acute intracranial abnormality. This was interpreted by the radiologist and was also independently reviewed by myself. Treatment and Re-Evaluation Narrative: Patient was advised of her findings. Patient is feeling better on reevaluation. Patient was given head injury instructions. Patient was instructed to use Tylenol or ibuprofen as needed for pain. Patient was instructed return to the emergency department if worse in any way. Patient was instructed to follow-up with her primary care physician in 5 to 7 days. Patient understood and was agreeable with the plan. All questions were answered. Discharge Plan Triage Chief Complaint: Chest Other Other Complaint: Back ED Provider: Socrates Peguero Dx/Rx/DC Orders Clinical Impression: Closed head injury, Contusion of chest wall, Fall Instructions: ED Head Injury (Adult), ED Rib Contusion or Minor Fracture Prescriptions: No Action propranolol 40 MG tablet 40 mg PO DAILY Label Comments: BLOOD PRESSURE/HEADACHES levothyroxine 50 MCG tablet 50 mcg PO DAILY Label Comments: THYROID warfarin [Jantoven] 2.5 MG tablet 2.5 mg PO MOTUTHFRSA zolpidem 5 MG tablet 5 mg PO QHS PRN (Reason: Sleep) celecoxib 50 MG capsule 200 mg PO DAILY diphenhydramine HCl 25 MG capsule 25 mg PO Q6H PRN PRN (Reason: Allergies) duloxetine 30 MG capsule,delayed release(DR/EC) 30 mg PO DAILY diphenoxylate-atropine 1 EACH tablet 1 each PO 4X/DAY PRN (Reason: Diarreha) Multivitamin Women 50 Plus Tab 1 tablet PO DAILY diphenoxylate-atropine [Lomotil] 2.5-0.025 mg Tablet 1 tab PO DAILY PRN (Reason: Diarrhea) diphenhydramine HCl [Banophen] 25 mg Capsule 25 mg PO Q6H PRN (Reason: ALLERGIES) hydrocodone-acetaminophen [hydrocodone-acetaminophen] 1 TABLET tablet 1 tab PO Q4H PRN PRN (Reason: Pain) 2 Days Qty: 10 0RF Primary Care Provider: Stew Berg Referrals: Stew Berg MD [Primary Care Provider] - 5-7 Days Disposition Disposition: Home, Self Care
== END 2022-06-15 14:27 | disposition home or self-care (01) ==
PROVIDERS: Emergency Provider Emergency Medicine; PCP Family Medicine; Visit Provider Emergency Medicine
DX: S20.20XA Contusion of thorax, unspecified, initial encounter (principal); S09.90XA Unspecified injury of head, initial encounter; F17.210 Nicotine dependence, cigarettes, uncomplicated; I10 Essential (primary) hypertension; W10.9XXA Fall (on) (from) unspecified stairs and steps, initial encounter; Z79.01 Long term (current) use of anticoagulants; E03.9 Hypothyroidism, unspecified; F32.A Depression, unspecified; Z79.899 Other long term (current) drug therapy; F41.9 Anxiety disorder, unspecified
CPT/HCPCS: 70450; 71101; 99282

== ENCOUNTER 2023-03-19 13:51 | Emergency (ER) | payer MEDICARE, MEDICAID, SELFPAY ==
[2023-03-19 13:54] VITALS: BP 128/91; PULSE 83; RESP 18; TEMP 36.1; O2SAT 96; BMI 34.7
--- NOTE | 2023-03-19 14:22 | CT_ITS ---
STUDY: CTA CHEST REASON FOR EXAM: Female, 62 years old. Hemoptysis, weight loss RADIATION DOSAGE (If Supplied By Facility): CTDIvol = ( 8.27 ) mGy, DLP = ( 394.84 ) mGycm TECHNIQUE: The examination was performed with the intravenous administration of IV 100mL Isovue-370. Post-processing of the angiographic images was performed, with multiplanar reformation and 3D reconstruction. Individualized dose optimization techniques were used for this CT. COMPARISON: Comparison is made with prior study dated June 04, 2020. FINDINGS: Normal enhancement of the main pulmonary artery and right and left pulmonary arteries. Normal enhancement of the bilateral peripheral pulmonary arteries. There is no demonstrated pulmonary embolism. Normal thoracic aorta and visualized great vessels. There is no demonstrated aortic dissection. Normal heart and pericardium. Normal mediastinum. Normal hilar regions. Normal visualized trachea and bronchi. The lungs are well expanded. Mild degree of emphysematous changes more prominent in the upper lobes. There is a 9.4 mm bulla in the posterior aspect of the right upper lobe abutting the right minor fissure. Normal pleura. Normal chest wall structures. There are mild degenerative changes of thoracic spine. Gallstones are seen in the gallbladder lumen. Small hiatal hernia. CT/CTA Chest W/WO Contrast IMPRESSION: Mild degree of emphysematous changes. No evidence of pulmonary embolism. No focal consolidation or mass lesion is seen. Gallstones. Electronically Signed: Twan Sanchez MD at 15:42 EST ,
--- NOTE | 2023-03-19 14:22 | EKG12_ITS ---
Test Reason : DYSRHYTHMIA Blood Pressure : / mmHG Vent. Rate : 069 BPM Atrial Rate : 069 BPM P-R Int : 186 ms QRS Dur : 068 ms QT Int : 394 ms P-R-T Axes : 073 052 061 degrees QTc Int : 422 ms Normal sinus rhythm Low voltage QRS Borderline ECG Confirmed by DHARA CATALAN, JOAQUÍN ([id number]), editorial specialist LYLE STEVENSON ([id number]) on 03/20/2023 9:25:32 AM Referred By: Manuelito Gomes Confirmed By:JOAQUÍN JULES MD
--- NOTE | 2023-03-19 14:24 | EX.ED.DYSGE1 ---
HPI History of Present Illness Chief Complaint: Chest Other Informant: patient Narrative Narrative: Patient went over for cancer screening study and was sent here. Patient states she was talking to the person at the cancer screening center. She mentioned that sometimes she has a little discomfort in her chest. She also mention that she coughs up blood usually in the morning. There were concerns about both cancer and pulmonary embolus so she was sent here. Patient is on apixaban twice a day for DVT. It seemed like she was telling them that she missed frequent doses. But she tells me she takes it regularly twice a day. But it sounds like the story was varying a little bit. Patient's really downplaying the chest pain issue now. She states sometimes it hurts when her coughing is bad. But she does not think anything of it. She states it hurt a little bit earlier today. But she does not get any other symptoms with it. She states she has asthma COPD and emphysema. She always coughs in the morning and brings up a little bit of sputum. There is usually some blood visible in that sputum. She states that is been going on for 3 or 6 months. She has had a 10 pound weight loss over the last few months with no known reason. This is what prompted her family member to encourage the cancer screening. Patient is a long-term smoker and there is a strong history of cancer in the family. Patient tells me she feels the same now if she does any other day. [facility] Medical History Anxiety Bipolar disorder Chest pain Closed right ankle fracture Depression DVT (deep venous thrombosis) GERD (gastroesophageal reflux disease) Hypertension Hypothyroidism Neuropathy Seizures Smoker Tubal ectopic Urinary retention with incomplete bladder emptying Home Medications levothyroxine 50 mcg tablet 50 mcg PO DAILY Thyroid 12/18/15 [History Last Taken 02/15/16 09:00] propranolol 40 mg tablet 40 mg PO DAILY BP 12/18/15 [History Last Taken 02/15/16 09:00] celecoxib 50 mg capsule 200 mg PO DAILY Depression 05/11/19 [History Last Taken Unknown] zolpidem 5 mg tablet 5 mg PO QHS PRN Sleep 05/11/19 [History Last Taken Unknown] Multivitamin Women 50 Plus Tab 1 tablet PO DAILY Supplement 06/07/20 [History Last Taken Unknown] diphenoxylate-atropine 2.5 mg-0.025 mg tablet 1 each PO 4X/DAY PRN Diarreha 06/07/20 [History Last Taken Unknown] duloxetine 30 mg capsule,delayed release 30 mg PO DAILY Depression 06/07/20 [History Last Taken Unknown] diphenhydramine HCl 25 mg capsule (Banophen) 25 mg PO Q6H PRN ALLERGIES 03/02/21 [History Last Taken Unknown] albuterol sulfate 90 mcg/actuation aerosol inhaler 2 puff inhalation Q6H PRN 03/19/23 [History Last Taken Unknown] apixaban 5 mg tablet (Eliquis) 5 mg PO BID 03/19/23 [History Last Taken Unknown] cyclobenzaprine 10 mg tablet 10 mg PO HS 03/19/23 [History Last Taken Unknown] gabapentin 300 mg capsule 300 mg PO BID 03/19/23 [History Last Taken Unknown] Allergy/AdvReac Type Severity Reaction Status Date / Time cheese Allergy Severe Anaphylaxis Verified 03/19/23 13:54 aspirin Allergy Swelling,HIVES,THROAT Verified 03/19/23 13:54 SWELLING bee venom protein (honey bee) Allergy Hives Verified 03/19/23 13:54 benzonatate Allergy Other Verified 03/19/23 13:58 [From Tessalon Perles] bupropion [From Wellbutrin] Allergy Shortness Verified 03/19/23 13:54 of breath Family History Mother Myocardial infarction Father Emphysema lung Surgical History H/O colectomy History of ankle surgery Social History Smoking Status: Current every day smoker tobacco type: cigarettes ROS ROS ED ROS Narrative A complete review of systems was performed and is negative except as documented in the history of present illness. Some specific details below. Constitutional: No recent fevers or chills. She has had a 10 pound weight loss in the last few months. EYE: No discharge, visual complaints, or pain. ENT: No difficulty swallowing. No swelling. No pain. No reflux symptoms. CV: See history of present illness. No chest pain now. Respiratory: See history of present illness. She states there is really no dyspnea or change in her breathing recently. GI: No abdominal pain. No nausea vomiting diarrhea. No blood in stool. : No frequency dysuria or hematuria. Musculoskeletal: No recent trauma. No pains. No swelling. Skin: No rash. Nondiaphoretic. No abnormal bruising. Neuro: No weakness or numbness. Endocrine: No polyuria or polydipsia. EXAM Physical Exam Narrative Exam Narrative: CONSTITUTIONAL: Patient is nontoxic in appearance. The patient looks comfortable. Work of breathing looks normal. She does not look dyspneic at this time. She carries on normal conversation. No coughing while I am in the room. HEENT: No notable trauma. Mucous membranes moist. Edentulous. No lesions seen. No sinus tenderness. No indication of pain with swallowing. EYES: No conjunctival injection. No proptosis. No pallor. NECK:No JVD. No stridor. CARDIOVASCULAR: Regular rate. Regular rhythm. No notable murmur. No JVD. RESPIRATORY: No respiratory distress. Breathing is unlabored. She does have some mild bilateral wheezes. She states this does not bother her. She uses an inhaler but does not take or use or want a breathing treatment/aerosol. No rhonchi. No rales. No pain with a deep breath. No chest wall tenderness. GASTROINTESTINAL: Not distended. Bowel sounds are normal. No tenderness. GENITOURINARY: No tenderness over the bladder. No CVA tenderness. MUSCULOSKELETAL: Atraumatic. No peripheral edema. No cord. No tenderness along the deep venous system. No asymmetry. No distended veins. She states the right leg will swell if she stands a long time but right now it is the same as the left. NEUROLOGICAL: Patient is alert and appropriate. No focal deficit noted. SKIN: No noted rashes. No diaphoresis. PSYCHIATRIC: Patient is calm. Mood is appropriate. Const Vital Signs: 03/19/23 13:54 03/19/23 15:12 Temperature 97 F L Temperature Source Temporal Pulse Rate 83 68 Respiratory Rate 18 16 Respiratory Pattern Normal Blood Pressure 128/91 H Blood Pressure Mean 103 Pulse Ox 96 Oxygen Delivery Method Room Air MDM MDM MDM Narrative Medical decision making narrative: Patient's CBC shows no marked abnormalities. Patient's electrolytes show no marked changes. Minimal elevation of chloride. Patient's troponin is normal at 5. My independent interpretation of the patient's CT angiogram of the chest does not show any large pulmonary embolus that I am seeing. Nor do I see any significant mass lesion or infiltrate. There is sign of COPD and bleb. Final reading is pending. Final reading of the CT is similar. They do make note of gallstones that were seen but she is not having symptoms related to this. We went over the results with the patient. This included blood work and her CT. I still think she needs follow-up. I told her since she has been bringing up small amounts of blood for months and months with normal hemoglobin and platelets I do not think she should alter her medications now. That includes her Eliquis. But she does need follow-up and continued evaluation. Lab Data Attestation: I reviewed the patient's lab results. Labs: Laboratory Results - last 24 hr 03/19/23 14:30 WBC 6.7 RBC 4.57 Hgb 13.3 Hct 41.1 MCV 89.9 MCH 29.1 MCHC 32.4 RDW Std Deviation 44.0 H RDW Coeff of Nessa 13.4 Plt Count 170 MPV 9.7 Immature Gran % (Auto) 0.300 Neut % (Auto) 56.0 Lymph % (Auto) 33.3 Stanly % (Auto) 6.0 Eos % (Auto) 3.0 Baso % (Auto) 1.4 H Absolute Neuts (auto) 3.7 Absolute Lymphs (auto) 2.22 Nucleated RBC % 0 Sodium 138 Potassium 4.2 Chloride 110 H Carbon Dioxide 24.0 Anion Gap 4 L BUN 15 Creatinine 0.91 Estim Creat Clear Calc 58.78 Est GFR (MDRD) Af Amer 79 Est GFR (MDRD) Non-Af 66 BUN/Creatinine Ratio 16.4 Glucose 96 Calcium 9.1 Troponin I High Sens 5 Radiography Diagnostic Testing: Clinical Impression(s) from Imaging Studies Chest CTA 03/19/23 14:22 IMPRESSION: Mild degree of emphysematous changes. No evidence of pulmonary embolism. No focal consolidation or mass lesion is seen. Gallstones. Electronically Signed: Twan Sanchez MD at 15:42 EST , EKG Initial EKG: Comments: My independent interpretation of the patient's EKG shows normal sinus rhythm with overall rate of 69. No ectopy. No acute ST elevation or depression. Overall poor voltage. VT interval, QRS duration and QTc are normal. Discharge Plan Triage Chief Complaint: Chest Other ED Provider: Manuelito Gomes Dx/Rx/DC Orders Clinical Impression: Medication induced coagulopathy, Cough with hemoptysis, COPD with asthma Instructions: COPD: Chronic Coughing, ED Hemoptysis Prescriptions: No Action Eliquis 5 mg tablet 5 mg PO BID gabapentin 300 mg capsule 300 mg PO BID cyclobenzaprine 10 mg tablet 10 mg PO HS albuterol sulfate 90 mcg/actuation HFA aerosol inhaler 2 puff inhalation Q6H PRN propranolol 40 MG tablet 40 mg PO DAILY Patient Comments: BLOOD PRESSURE/HEADACHES levothyroxine 50 MCG tablet 50 mcg PO DAILY Patient Comments: THYROID zolpidem 5 MG tablet 5 mg PO QHS PRN (Reason: Sleep) celecoxib 50 MG capsule 200 mg PO DAILY duloxetine 30 MG capsule,delayed release(DR/EC) 30 mg PO DAILY diphenoxylate-atropine 1 EACH tablet 1 each PO 4X/DAY PRN (Reason: Diarreha) Multivitamin Women 50 Plus Tab 1 tablet PO DAILY diphenhydramine HCl [Banophen] 25 mg Capsule 25 mg PO Q6H PRN (Reason: ALLERGIES) Primary Care Provider: Stew Berg Referrals: Stew Berg MD [Primary Care Provider] - As soon as possible Activity Restrictions/Additional Instructions: Follow-up with the cancer screening center also. Disposition Disposition: Home, Self Care Capacity Legal Associate Financial Analyst Reflex Medical hold order details:: IF a medical hold is selected below, a suggested order for a MEDICAL HOLD will reflex upon signing the document. Next of kin: [place] law dictates a PRIORITY LIST for identifying legal decision-maker/legal next of kin in the following order (LNOK): 1st: The patient?s legal guardian, if any 2nd: The patient's spouse (if status is questionable, consult Risk Management) 3rd: The patient?s adult child(marky) (majority, if multiple children) 4th: The patient?s parents 5th: The patient?s adult siblings (majority, if multiple children siblings)
[2023-03-19 14:40] LABS: Absolute Lymphocyte Count 2.22 X10^3/uL (0.83-4.51); Absolute Neutrophil Count 3.7 X10^3/uL (2.0-7.7); Basophil# 0.09 X10^3/uL; Basophil% 1.4 % (0-1); Hematocrit 41.1 % (37-47); Hemoglobin 13.3 g/dL (12.0-15.0); Lymphocyte # 2.22 X10^3/ul (0.83-4.51); Lymphocyte % 33.3 % (19-41); Mean Corp Hgb Conc 32.4 g/dL (32-36); Mean Corpuscular Hgb 29.1 pg (27.0-32.0); Mean Corpuscular Volume 89.9 fL (81-99); Mean Platelet Vol. 9.7 fl (6.2-12.0); NRBC Flagged by Analyzer 0 % (0-5); Neutrophil # 3.73 X10^3/uL (2.7-7.7); Platelet Count 170 K/mm3 (150-450); RBC Distribution Width CV 13.4 % (11.6-14.6); Red Blood Count 4.57 M/mm3 (4.2-5.4); White Blood Count 6.7 K/mm3 (4.4-11.0)
[2023-03-19 14:53] LABS: Anion Gap 4 (5-15); BUN 15 mg/dL (7-18); BUN/Creat Ratio 16.4 RATIO (10-20); Calcium,Total 9.1 mg/dL (8.5-10.1); Chloride 110 mmol/L (98-107); Creatinine, Serum 0.91 mg/dL (0.55-1.02); EST Glomerular Filtration Rate 66 mL/min (>60); Est Glom Filt Rate - Afr Amer 79 mL/min (>60); Estimated Creatinine Clearance 58.78 ml/min; Glucose 96 mg/dL (74-106); Potassium 4.2 mmol/L (3.5-5.1); Sodium Level 138 mmol/L (136-145); Troponin-I HS 5 pg/mL (3.0-54.0)
[2023-03-19] MEDS: 0.9% Normal Saline (500mL Bag) 500 ML 999 ML IV (15:03)
[2023-03-19] MEDS: Albuterol Sulfate 8 gm Inhaler (60 puffs) 2 PUFF INHALATION (15:10)
[2023-03-19 15:12] VITALS: PULSE 68; RESP 16
[2023-03-19 16:04] VITALS: BP 139/72; PULSE 74; RESP 12; O2SAT 96
--- OUTSIDE RECORDS SUMMARY | 2023-03-19 17:30 | XMS RPT_ITS | CCD ---
Demographics Address [facility] [address] [place] [address] Preferred Language en Marital Status Church Affiliation Unknown Race White Ethnic Group Not or Lati no Author Name Unknown Address [address] [place] [address] Organization [facility] Care Team Providers Care Director Career Name Role Phone Edwige Adame MD Primary Care Provider EDWIGE ADAME Primary Care Unavailable CHITRA COTE Referring Unavailable Edwige Adame MD Primary Care Provider [phone] JAIDA FARNSWORTH Referring Unavailable EDWIGE ADAME Primary Care Unavailable EDWIGE ADAME Primary Care Unavailable EDWIGE ADAME Attending Unavailable EDWIGE ADAME Primary Care Unavailable EDWIGE ADAME Primary Care Unavailable JIM MENESES Referring Unavailable EDWIGE ADAME Primary Care Unavailable JIM MENESES Attending Unavailable EDWIGE ADAME Primary Care Unavailable EDWIGE AADME Primary Care Unavailable EDWIGE ADAME Referring Unavailable EDWIGE ADAME Attending Unavailable EDWIGE ADAME Primary Care Unavailable EDWIGE ADAME Primary Care Unavailable EDWIGE ADAME Referring Unavailable EDWIGE ADAME Primary Care Unavailable EDWIGE ADAME Primary Care Unavailable EDWIGE ADAME Attending Unavailable EDWIGE ADAME Primary Care Unavailable EDWIGE ADAME Attending Unavailable EDWIGE ADAME Attending Unavailable EDWIGE ADAME Primary Care Unavailable EDWIGE ADAME Attending Unavailable EDWIGE ADAME Primary Care Unavailable Allergies Allergy Classification Reported Allergen(s) Allergy Type Date of Onset Reaction(s) Facility (20 sources) Aspirin; Translations: [ASPIRIN] Drug Allergy 6 Swelling [facility] Work Phone: (20 sources) buPROPion; Translations: [BUPROPION HCL] Drug Allergy 0 Rash [facility] Work Phone: (20 sources) Citalopram; Translations: [CITALOPRAM] Drug Allergy 0 Other: See Comments, Unknown [facility] (20 sources) Bee Sting; Translations: [BEE STING] Allergy to substance 6 Swelling, Shortness of Breath [facility] Work Phone: (20 sources) reeves peppers [Other] Propensity to adverse reactions 0 GI Upset [facility] (20 sources) parmasean cheese [Other] Propensity to adverse reactions 0 Vomiting [facility] (2 sources) OTHER; Translations: [OTHER] Propensity to adverse reactions (disorder) 0 [facility] Other [facility] Medications Current Medications Medication Drug Class(es) Dates Sig (Normalized) Sig (Original) amoxicillin 875 mg / clavulanate 125 mg oral tablet (1 source) Penicillin-class Antibacterial Start: 11-29-2021 End: 12-09-2021 take 1 tablet by mouth twice daily amoxicillin-clavu lanic acid (AUGMENTIN) 875-125 mg per tablet Indications: Chronic obstructive pulmonary disease, unspecified COPD type (HCC) , Cough Take 1 tablet by mouth twice daily for 10 days. 20 tablet 0 11/29/2021 12/09/2021 Active Completed/Discontinued Medications Medication Drug Class(es) Dates Sig (Normalized) Sig (Original) [id number] 200 actuat albuterol 0.09 mg/actuat metered dose inhaler (20 sources) beta2-Adrenergic Agonist Start: 10-04-2022 take 2 puff(s) by mouth every six hours as needed for wheezing albuterol HFA (PROVENTIL HFA, VENTOLIN HFA) 90 mcg/actuation inhaler Indications: Chronic obstructive pulmonary disease, unspecified COPD type (HCC) INHALE TWO (2) PUFFS BY MOUTH EVERY 6 HOURS NEEDED FOR SHORTNESS OF BREATH AND WHEEZING 6.7 g 10 10/04/2022 Active Problems Active Problems Problem Classification Problem Date Documented Da te Episodic/Chronic Acute bronchitis (1 source) Acute bronchitis; Translations: [Acute bronchitis, unspecified] 01-21-2023 Episodic Anxiety disorders (7 sources) Mixed anxiety and depressive disorder; Translations: [Other specified anxiety disorders] Chronic Asthma (20 sources) Asthma; Translations: [Unspecified asthma, uncomplicated] Onset: 3 02-28-2021 Chronic Chronic kidney disease (14 sources) Chronic kidney disease stage 3A ; Translations: [Chronic kidney disease, stage 3a (HCC)] Onset: 3 Chronic Chronic kidney disease (1 source) Chronic kidney disease; Translations: [Chronic kidney disease, stage 3a (HCC)] Onset: 3 Chronic obstructive pulmonary disease and bronchiectasis (20 sources) Chronic obstructive lung disease; Translations: [Chronic obstructive pulmonary disease, unspecified] Onset: 3 11-28-2015 Chronic Diseases of mouth; excluding dental (1 source) Glossodynia; Translations: [Glossodynia] Episodic Disorders of lipid metabolism (20 sources) Hyperlipidemia; Translations: [Hyperlipidemia, unspecified] Onset: 6 11-29-2015 Chronic Esophageal disorders (20 sources) Gastroesophageal reflux disease without esophagitis; Translations: [Gastro-esophageal reflux disease without esophagitis] Onset: 6 11-28-2015 Chronic Fluid and electrolyte disorders (1 source) Hyperkalemia; Translations: [Hyperkalemia] Episodic Genitourinary symptoms and ill-defined conditions (20 sources) Urge incontinence of urine; Translations: [Urge incontinence] 11-28-2015 Chronic Genitourinary symptoms and ill-defined conditions (1 source) Increased frequency of urination; Translations: [Frequency of micturition] Episodic Immunizations and screening for infectious disease (1 source) Vaccination needed; Translations: [Encounter for immunization] 01-21-2023 Episodic Miscellaneous mental health disorders (20 sources) Chronic insomnia; Translations: [Psychophysiologic insomnia] Onset: 2 Chronic Mood disorders (20 sources) Bipolar disorder; Translations: [Bipolar disorder, unspecified] 11-28-2015 Chronic Mycoses (1 source) Candidiasis of mouth; Translations: [Candidal stomatitis] Episodic Nausea and vomiting (3 sources) Nausea; Translations: [Nausea] Episodic Noninfectious gastroenteritis (20 sources) Chronic diarrhea; Translations: [Noninfective gastroenteritis and colitis, unspecified] 02-28-2021 Episodic Nonspecific chest pain (1 source) Chest pain; Translations: [Chest pain, unspecified] Episodic Osteoporosis (20 sources) Osteoporosis; Translations: [Other osteoporosis without current pathological fracture] 03-09-2008 Chronic Other connective tissue disease (20 sources) Fibromyalgia; Translations: [Fibromyalgia] 11-28-2015 Episodic Other hereditary and degenerative nervous system conditions (20 sources) Cerebral degeneration; Translations: [Degenerative disease of nervous system, unspecified] 02-28-2021 Chronic Other hereditary and degenerative nervous system conditions (2 sources) Disorder of nervous system; Translations: [Degenerative disease of nervous system, unspecified] Chronic Other lower respiratory disease (2 sources) Cough; Translations: [Subacute cough] Episodic Other nervous system disorders (1 source) Carpal tunnel syndrome of right wrist; Translations: [Carpal tunnel syndrome, right upper limb] Chronic Other screening for suspected conditions (not mental disorders or infectious disease) (20 sources) Mammography abnormal; Translations: [Other abnormal and inconclusive findings on diagnostic imaging of breast] Onset: 9 11-17-2008 Episodic Other skin disorders (1 source) Mass of neck; Translations: [Localized swelling, mass and lump, neck] Episodic Other upper respiratory infections (1 source) Chronic sinusitis; Translations: [Chronic sinusitis, unspecified] 11-19-2022 Chronic Other upper respiratory infections (3 sources) Sore throat symptom; Translations: [Acute pharyngitis, unspecified] Episodic Phlebitis; thrombophlebitis and thromboembolism (15 sources) Chronic deep venous thrombosis of thigh; Translations: [Chronic embolism and thrombosis of unspecified deep veins of unspecified proximal lower extremity] Onset: 3 Chronic Residual codes; unclassified (7 sources) Insomnia; Translations: [Insomnia, unspecified] Episodic Spondylosis; intervertebral disc disorders; other back problems (1 source) Acute low back pain; Translations: [Acute midline low back pain without sciatica] Episodic Substance-related disorders (20 sources) Tobacco user; Translations: [Nicotine dependence, unspecified, uncomplicated] Onset: 6 11-28-2015 Chronic Thyroid disorders (20 sources) Hypothyroidism; Translations: [Hypothyroidism, unspecified] Onset: 6 11-15-2015 Chronic Past or Other Problems Problem Classification Problem Date Documented Da te Episodic/Chronic Headache; including migraine (20 sources) Headache; Translations: [Headache] Onset: 07-13-2008 09-24-2019 Episodic Lymphadenitis (2 sources) Lymphadenopathy of head AND/OR neck; Translations: [Localized enlarged lymph nodes] Onset: 02-27-2022 Episodic Other bone disease and musculoskeletal deformities (20 sources) Osteopenia; Translations: [Other specified disorders of bone density and structure, unspecified site] Onset: 01-22-2009 01-22-2009 Episodic Phlebitis; thrombophlebitis and thromboembolism (20 sources) Venous thrombosis; Translations: [Acute embolism and thrombosis of unspecified vein] Onset: 09-12-2009 09-12-2009 Episodic Results Test Name Value Interpretation Reference Range Facil ity Vital Signs Date Time Vital Sign Value Performing Clinician Faci lity 01-21-2023 13:39-0500 Body weight 79.11 kg Edwige Adame MD Work Phone: [facility] 01-21-2023 13:39-0500 Diastolic blood pressure 72 mm[Hg] Edwige Adame MD Work Phone: [facility] 01-21-2023 13:39-0500 Heart rate 84 /min Edwige Adame MD Work Phone: [facility] 01-21-2023 13:39-0500 Respiratory rate 16 /min Edwige Adame MD Work Phone: [facility] 01-21-2023 13:39-0500 Systolic blood pressure 120 mm[Hg] Edwige Adame MD Work Phone: [facility] 11-19-2022 12:17-0400 Body temperature 97 [degF] Fercho Forman TARGET DEVELOPER.AUTOMATION TEST DEVELOPER Work Phone: [facility] 11-19-2022 12:17-0400 Body weight 78.93 kg Fercho Forman TARGET DEVELOPER.AUTOMATION TEST DEVELOPER Work Phone: [facility] 11-19-2022 12:17-0400 Diastolic blood pressure 80 mm[Hg] Fercho Forman TARGET DEVELOPER.AUTOMATION TEST DEVELOPER Work Phone: [facility] 11-19-2022 12:17-0400 Heart rate 90 /min Fercho Formna TARGET DEVELOPER.AUTOMATION TEST DEVELOPER Work Phone: [facility] 11-19-2022 12:17-0400 Respiratory rate 18 /min Fercho Forman TARGET DEVELOPER.AUTOMATION TEST DEVELOPER Work Phone: [facility] 11-19-2022 12:17-0400 SaO2% (BldA) [Mass fraction] 96 % Fercho Forman TARGET DEVELOPER.AUTOMATION TEST DEVELOPER Work Phone: [facility] 11-19-2022 12:17-0400 Systolic blood pressure 122 mm[Hg] Fercho Forman TARGET DEVELOPER.AUTOMATION TEST DEVELOPER Work Phone: [facility] 10-15-2022 14:44-0400 Body weight 79.38 kg Edwige Adame MD Work Phone: [facility] 10-15-2022 14:44-0400 Diastolic blood pressure 78 mm[Hg] Edwige Adame MD Work Phone: [facility] 10-15-2022 14:44-0400 Heart rate 72 /min Edwige Aadme MD Work Phone: [facility] 10-15-2022 14:44-0400 Respiratory rate 16 /min Edwige dAame MD Work Phone: [facility] 10-15-2022 14:44-0400 Systolic blood pressure 110 mm[Hg] Edwige Adame MD Work Phone: [facility] 07-10-2022 15:48-0400 Body weight 76.93 kg Edwige Adame MD Work Phone: [facility] 07-10-2022 15:48-0400 Diastolic blood pressure 74 mm[Hg] Edwige Adame MD Work Phone: [facility] 07-10-2022 15:48-0400 Heart rate 68 /min Edwige Adame MD Work Phone: [facility] 07-10-2022 15:48-0400 Respiratory rate 16 /min Edwige Adame MD Work Phone: [facility] 07-10-2022 15:48-0400 Systolic blood pressure 112 mm[Hg] Edwige Adame MD Work Phone: [facility] 04-09-2022 13:43-0500 Body weight 76.2 kg Edwige Adame MD Work Phone: [facility] 04-09-2022 13:43-0500 Diastolic blood pressure 78 mm[Hg] Edwige Adame MD Work Phone: [facility] 04-09-2022 13:43-0500 Heart rate 72 /min Edwige Adame MD Work Phone: [facility] 04-09-2022 13:43-0500 Respiratory rate 16 /min Edwige Adame MD Work Phone: [facility] 04-09-2022 13:43-0500 Systolic blood pressure 120 mm[Hg] Edwige Adame MD Work Phone: [facility] 03-21-2022 17:51-0500 Body temperature 97.2 [degF] Jaida Praisler-Wood TARGET DEVELOPER.AUTOMATION TEST DEVELOPER Work Phone: [facility] 03-21-2022 17:51-0500 Body weight 76.66 kg Jaida Praisler-Wood TARGET DEVELOPER.AUTOMATION TEST DEVELOPER Work Phone: [facility] 03-21-2022 17:51-0500 Diastolic blood pressure 80 mm[Hg] Jaida Praisler-Wood TARGET DEVELOPER.AUTOMATION TEST DEVELOPER Work Phone: [facility] 03-21-2022 17:51-0500 Heart rate 99 /min Jaida Praisler-Wood TARGET DEVELOPER.AUTOMATION TEST DEVELOPER Work Phone: [facility] 03-21-2022 17:51-0500 Respiratory rate 18 /min Jaida Praisler-Wood TARGET DEVELOPER.AUTOMATION TEST DEVELOPER Work Phone: [facility] 03-21-2022 17:51-0500 SaO2% (BldA) [Mass fraction] 99 % Jaida Praisler-Wood TARGET DEVELOPER.AUTOMATION TEST DEVELOPER Work Phone: [facility] 03-21-2022 17:51-0500 Systolic blood pressure 132 mm[Hg] Jaida Praisler-Wood TARGET DEVELOPER.AUTOMATION TEST DEVELOPER Work Phone: [facility] 02-27-2022 11:26-0500 Body weight 70.76 kg Jim Ramireshof TARGET DEVELOPER.AUTOMATION TEST DEVELOPER Work Phone: [facility] 02-27-2022 11:26-0500 Diastolic blood pressure 80 mm[Hg] Jim Ramireshof TARGET DEVELOPER.AUTOMATION TEST DEVELOPER Work Phone: [facility] 02-27-2022 11:26-0500 Heart rate 72 /min Jim Tannhof TARGET DEVELOPER.AUTOMATION TEST DEVELOPER Work Phone: [facility] 02-27-2022 11:26-0500 Respiratory rate 16 /min Jim Tannhof TARGET DEVELOPER.AUTOMATION TEST DEVELOPER Work Phone: [facility] 02-27-2022 11:26-0500 SaO2% (BldA) [Mass fraction] 97 % Jim Ramireshof TARGET DEVELOPER.AUTOMATION TEST DEVELOPER Work Phone: [facility] 02-27-2022 11:26-0500 Systolic blood pressure 130 mm[Hg] Jim Tannhof TARGET DEVELOPER.AUTOMATION TEST DEVELOPER Work Phone: [facility] 02-22-2022 15:18-0500 Body temperature 97.5 [degF] Chitra Cote TARGET DEVELOPER.AUTOMATION TEST DEVELOPER Work Phone: [facility] 02-22-2022 15:18-0500 Body weight 75.57 kg Chitra Cote TARGET DEVELOPER.AUTOMATION TEST DEVELOPER Work Phone: [facility] 02-22-2022 15:18-0500 Diastolic blood pressure 84 mm[Hg] Chitra Cote TARGET DEVELOPER.AUTOMATION TEST DEVELOPER Work Phone: [facility] 02-22-2022 15:18-0500 Heart rate 70 /min Chitra Cote TARGET DEVELOPER.AUTOMATION TEST DEVELOPER Work Phone: [facility] 02-22-2022 15:18-0500 Respiratory rate 16 /min Chitra Cote TARGET DEVELOPER.AUTOMATION TEST DEVELOPER Work Phone: [facility] 02-22-2022 15:18-0500 SaO2% (BldA) [Mass fraction] 97 % Chitra Cote APRN.AUTOMATION TEST DEVELOPER Work Phone: [facility] 02-22-2022 15:18-0500 Systolic blood pressure 144 mm[Hg] Chitra Cote APRN.AUTOMATION TEST DEVELOPER Work Phone: [facility] 01-04-2022 11:18-0400 Body weight 69.4 kg Edwige Adame MD Work Phone: [facility] 01-04-2022 11:18-0400 Diastolic blood pressure 78 mm[Hg] Edwige Adame MD Work Phone: [facility] 01-04-2022 11:18-0400 Heart rate 74 /min Edwige Adame MD Work Phone: [facility] 01-04-2022 11:18-0400 Respiratory rate 16 /min Edwige Adame MD Work Phone: [facility] 01-04-2022 11:18-0400 Systolic blood pressure 120 mm[Hg] Edwige Adame MD Work Phone: [facility] 11-29-2021 17:49-0400 Body weight 65.77 kg Edwige Adame MD Work Phone: [facility] 11-29-2021 17:49-0400 Diastolic blood pressure 78 mm[Hg] Edwige Adame MD Work Phone: [facility] 11-29-2021 17:49-0400 Heart rate 72 /min Edwige Adame MD Work Phone: [facility] 11-29-2021 17:49-0400 Respiratory rate 16 /min Edwige Adame MD Work Phone: [facility] 11-29-2021 17:49-0400 Systolic blood pressure 116 mm[Hg] Edwige Adame MD Work Phone: [facility] 11-28-2021 11:23-0400 Body temperature 97.11 [degF] Nadia Gutierrez PA-C Work Phone: [facility] 11-28-2021 11:23-0400 Body weight 68.04 kg Nadia Athy PA-C Work Phone: [facility] 11-28-2021 11:23-0400 Diastolic blood pressure 78 mm[Hg] Nadia Athy PA-C Work Phone: [facility] 11-28-2021 11:23-0400 Heart rate 78 /min Nadia Athy PA-C Work Phone: [facility] 11-28-2021 11:23-0400 Respiratory rate 18 /min Nadia Athy PA-C Work Phone: [facility] 11-28-2021 11:23-0400 SaO2% (BldA) [Mass fraction] 97 % Nadia Athy PA-C Work Phone: [facility] 11-28-2021 11:23-0400 Systolic blood pressure 122 mm[Hg] Nadia Athy PA-C Work Phone: [facility] 11-03-2021 13:03-0400 Body temperature 97.3 [degF] Chitra Cote APRN.AUTOMATION TEST DEVELOPER Work Phone: [facility] 11-03-2021 13:03-0400 Body weight 64.5 kg Chitra Cote APRN.AUTOMATION TEST DEVELOPER Work Phone: [facility] 11-03-2021 13:03-0400 Diastolic blood pressure 78 mm[Hg] Chitra Cote APRN.AUTOMATION TEST DEVELOPER Work Phone: [facility] 11-03-2021 13:03-0400 Heart rate 62 /min Chitra Cote APRN.AUTOMATION TEST DEVELOPER Work Phone: [facility] 11-03-2021 13:03-0400 Respiratory rate 18 /min Chitra Cote APRN.AUTOMATION TEST DEVELOPER Work Phone: [facility] 11-03-2021 13:03-0400 SaO2% (BldA) [Mass fraction] 97 % Chitra Cote APRN.AUTOMATION TEST DEVELOPER Work Phone: [facility] 11-03-2021 13:03-0400 Systolic blood pressure 130 mm[Hg] Chitra Cote APRN.AUTOMATION TEST DEVELOPER Work Phone: [facility] 09-18-2021 15:35-0400 Body weight 64.41 kg Edwige Adame MD Work Phone: [facility] 09-18-2021 15:35-0400 Diastolic blood pressure 80 mm[Hg] Edwige Adame MD Work Phone: [facility] 09-18-2021 15:35-0400 Heart rate 74 /min Edwige Adame MD Work Phone: [facility] 09-18-2021 15:35-0400 Respiratory rate 16 /min Edwige Adame MD Work Phone: [facility] 09-18-2021 15:35-0400 Systolic blood pressure 120 mm[Hg] Edwige Adame MD Work Phone: [facility] 09-01-2021 14:24-0400 Body temperature 98.4 [degF] Edwige Adame MD Work Phone: [facility] 09-01-2021 14:24-0400 Body weight 64.41 kg Edwige Adame MD Work Phone: [facility] 09-01-2021 14:24-0400 Diastolic blood pressure 68 mm[Hg] Edwige Adame MD Work Phone: [facility] 09-01-2021 14:24-0400 Heart rate 71 /min Edwige Adame MD Work Phone: [facility] 09-01-2021 14:24-0400 SaO2% (BldA) [Mass fraction] 96 % Edwige Adame MD Work Phone: [facility] 09-01-2021 14:24-0400 Systolic blood pressure 110 mm[Hg] Edwige Adame MD Work Phone: [facility] Encounters Encounter Date Encounter Type Care Provider Facility Start: 01-30-2023 Documentation procedure Mammog dalia Coordinator [facility] Start: 01-30-2023 Letter encounter Mammography Coordinator [facility] Department Start: 01-29-2023 End: 01-29-2023 ambulatory EDWIGE ADAME Facility:[facility] Start: 01-29-2023 End: 01-29-2023 Subsequent hospital visit by physician Screen Mammo [facility] Mammogram Procedures Date Procedure Procedure Detail Performing Clinician Start: 10-15-2022 Lipid 1996 panel - S lin or Plasma Fercho Forman APRN.AUTOMATION TEST DEVELOPER Work Phone: Start: 02-22-2022 Us soft tissue head & neck real time imge maynor Cote TARGET DEVELOPER.AUTOMATION TEST DEVELOPER Work Phone: Start: 11-28-2021 STREP A MOLECULAR (POC) Nadia Gutierrez PA-C Work Phone: Start: 11-03-2021 Urnls dip stick/tabl et rgnt auto w/o microscopy Jaida Farnsworth TARGET DEVELOPER.AUTOMATION TEST DEVELOPER Work Phone: Start: 07-04-2020 Adult depression scr eening assessment Edwige Adame MD Work Phone: Start: 05-10-2020 Mammography Edwige medina MD Work Phone: Start: 03-25-2009 Colonoscopy Edwige medina MD Work Phone: Plan of Treatment Date Care Activity Detail Author Start: 10-21-2028 Urine microalbumin profile [facility] Start: 10-16-2027 Lipid 1996 panel - S lin or Plasma Lipid Screening [facility] Start: 10-16-2027 LIPID SCREEN LIPID SCREEN [facility] Start: 10-15-2025 DIABETES SCREEN DIABETES SCREEN [facility] Start: 10-15-2025 Diabetes Screening Diabetes Screenin g [facility] Start: 02-27-2025 DIABETES SCREEN DIABETES SCREEN [facility] Start: 01-04-2025 DIABETES SCREEN DIABETES SCREEN [facility] Start: 04-23-2024 LIPID SCREEN LIPID SCREEN [facility] Start: 01-30-2024 Mammography Mammogram Screening [facility] Start: 01-22-2024 Annual PCP Team Ensemble Member emerson Disease Visit Annual PCP Team Chronic Disease Visit [facility] Start: 01-22-2024 Colorectal Cancer Screening Colorectal Cancer Screening [facility] Immunizations Immunization Date Immunization Notes Care Provider Fa cility 01-21-2023 pneumococcal (PCV20) vaccine, 20 valent (PREVNAR 20) Edwige Adame MD Work Phone: [facility] 01-21-2023 pneumococcal Conjuga te, unspecified formulation Edwige Adame MD Work Phone: [facility] Work Phone: 10-21-2018 tetanus toxoid, redu sofia diphtheria toxoid, and acellular pertussis vaccine, adsorbed Edwige Adame MD Work Phone: [facility] 01-16-2018 influenza virus vaccine, unspecified formulation Fercho King SELMA Work Phone: [facility] 05-28-2012 pneumococcal polysaccharide vaccine, 23 valent Edwige Adame MD Work Phone: [facility] Payers Date Payer Category Payer Medicaid [id number] 2022 Unknown [id number] 2016 Medicaid [id number] 2016 Medicare [id number] 2016 Medicare [id number] 2016 Medicare [id number] Social History Date Type Detail Facility Start: 11-03-2021 [facility] Work Phone: History of tobacco use Cigarette Smoker [facility] Work Phone: Start: 04-14-2021 End: 01-21-2023 Alcohol intake Current non-drinker of alcohol (finding) [facility] Start: 06-16-2009 History SDOH Alcohol Comment used to drink heavily up to 2004 [facility] Start: 01-16-2018 End: 11-03-2021 Tobacco Comment sometimes less d/t headaches. Down to 4 cigarettes per day [facility] Start: 1960 Sex Assigned At Not on file [facility] Start: 08-21-2021 End: 01-04-2022 Exposure to SARS-CoV-2 (event) Not sure [facility] Start: 11-03-2021 End: 07-10-2022 Cigarettes smoked current (pack per day) - Reported 3 [facility] Work Phone: Start: 11-03-2021 Tobacco use and exposure Smokeless tobacco non-user [facility] Start: 07-10-2022 End: 01-21-2023 Tobacco use panel [facility] Work Phone: Adult Depression Screening Assessment 0 [facility] Work Phone: Clinical Notes 11-17-2008 to 01-30-2023 Letter - Coordinator, Mammography - 01/30/2023 2:53 PM ESTSKedar mera Mammo Tech - 01/29/2023 1:30 PM ESTTelephone Encounter - Edwige Adame MD - 01/28/2023 3:57 PM ESTPatient Instructions Note Date & Type Note Facility 01-30-2023 Miscellaneous Notes January 31, 2023 PID: [id number] Emily Feliz [id number] [place] [address] Dear Ms. Feliz, We are pleased to inform you that the results of your recent breast imaging exam on 01/29/2023 are normal. However, because you and/or your physician described a possible abnormality you should consult your physician or other health care provider for further evaluation if necessary. Early detection of cancer is very important. We also understand recommendations regarding breast cancer screening are controversial. Please discuss with your primary care provider which strategy is best for you and whether a mammogram is right for you. Your imaging studies and report will be kept on file at [facility] as part of your permanent medical record and are available for your continuing care. Thank you for allowing us to help in meeting your health care needs. Sincerely, Dr. Espinoza Interpreting Radiologist [facility] (Normal-Clinical Evaluation) documented in this encounter [facility] 01-29-2023 Note HNO ID: [id number] Author: Kedar Xavier Mammo Tech Service: ? Author Type: Technologist Type: Progress Notes Filed: 01/29/2023 1:22 PM Note Text: Radiology Service Progress Note PATIENT NAME: Emily Feliz DATE OF SERVICE: January 29, 2023 TIME: 1:18 PM PATIENT IDENTITY VERIFICATION COMPLETED USING TWO (2) IDENTIFIERS: Name and Date of confirmed by patient verbally. FALL SCREENING: Has the patient had 2 falls in the last year or 1 fall with injury or currently using an Ambulatory Assistive Device (Walker, Cane, Wheelchair, Crutches, etc.)? No PATIENT GENDER DATA: Female. status: : No status: NO. PATIENT RELEVANT IMPLANT DATA REVIEWED: Not Applicable RADIOLOGY DEPARTMENT: Mammography PERIPHERAL IV DATA: Not applicable SIGNED BY: Coleen Martínez January 29, 2023 1:18 PM [facility] 01-29-2023 History of Presen t illness Narrative Radiology Service Progress Note PATIENT NAME: Emily Feliz DATE OF SERVICE: January 29, 2023 TIME: 1:18 PM PATIENT IDENTITY VERIFICATION COMPLETED USING TWO (2) IDENTIFIERS: Name and Date of confirmed by patient verbally. FALL SCREENING: Has the patient had 2 falls in the last year or 1 fall with injury or currently using an Ambulatory Assistive Device (Walker, Cane, Wheelchair, Crutches, etc.)? No PATIENT GENDER DATA: Female. status: : No status: NO. PATIENT RELEVANT IMPLANT DATA REVIEWED: Not Applicable RADIOLOGY DEPARTMENT: Mammography PERIPHERAL IV DATA: Not applicable SIGNED BY: Coleen Martínez January 29, 2023 1:18 PM documented in this encounter [facility] 01-28-2023 Miscellaneous Notes OK to refill as ordered Edwige Adame MD [facility] is calling with rx requests. Please review. Last OV: 01/21/23 Patient has been identified by name and date of : Yes Requested Prescriptions Refused Prescriptions Disp Refills propranolol (INDERAL) 40 mg tablet [Pharmacy Med Name: PROPRANOLOL 40 MG TABLET 40 Tablet] 30 tablet 10 Sig: TAKE 1 TABLET BY MOUTH DAILY AT 9AM Refused By: ELISE CALDERON Reason for Refusal: Patient should contact Prescriber first omeprazole (PRILOSEC) 40 mg capsule [Pharmacy Med Name: OMEPRAZOLE DR 40 MG CAPSULE 40 Capsule] 30 capsule 10 Sig: TAKE 1 CAPSULE BY MOUTH DAILY AT 9AM Refused By: ELISE CALDERON Reason for Refusal: Patient should contact Prescriber first levothyroxine (SYNTHROID) 50 mcg tablet [Pharmacy Med Name: LEVOTHYROXINE 50MCG TAB 50 Tablet] 30 tablet 10 Sig: TAKE 1 TABLET BY MOUTH ONCE DAILY ON AN EMPTY STOMACH FOR THYROID Refused By: ELISE CALDERON Reason for Refusal: Patient should contact Prescriber first DULoxetine (CYMBALTA) 30 mg capsule [Pharmacy Med Name: DULOXETINE DR 30MG CAP 30 Capsule] 30 capsule 10 Sig: TAKE 1 CAPSULE BY MOUTH DAILY AT 9AM Refused By: ELISE CALDERON Reason for Refusal: Patient should contact Prescriber first RX INSTRUCTIONS: Pharmacy initiated this request. No need to notify patient. Zelda Bright LPN documented in this encounter [facility] 01-21-2023 Note HNO ID: [id number] Author: Edwige Adame MD Service: ? Author Type: Physician Type: Progress Notes Filed: 01/21/2023 5:30 PM Note Text: Chief Complaint Patient presents with: F/U 3 Month HPI Emily Feliz is a 62 year old female who presents here today for 3 month follow up. Smokes one a day without the patch. She states she is quitting because she can not breath. Has been given Nicotine patches to use. No bowel, Gi, or urinary issues. Has chronic diarrhea and urgency. Takes Lomotil prn. GERD: Stable on Prilosec 40 mg daily. Thyroid: Taking Synthroid 50 mcg daily. Depression/KATHARINA: Taking Cymbalta 30 mg daily. Fibro: Chronic; using Celebrex 200 mg daily, Gabapentin 300 mg at bedtime, Cymbalta 30 mg daily and Flexeril 10 mg TID PRN. DVT: Taking Eliquis 5 mg BID. COPD: Stable with PRN Ventolin inhaler. LANDA: Doing well with use of Inderal 40 mg daily and Tylenol prn. Insomnia: Uses Ambien 5 mg to sleep, this is working well for her. If she is tried she doesn't use it. C/o sore throat which has improved, still has cough, chest congestion, and left ear pain for 7 days. Has been using OTC mucinex. Denies being around anyone who has had covid. She also had an abscess to her gums, states she took a needle and popped it. This feels better. Past medical history, appointments, medications, allergies reviewed. Previous Medical History PAST MEDICAL HISTORY Diagnosis Date Absence of menstruation at age 36 Asthma Seeing Bipolar disorder ([facility]) Cerebral degeneration ([facility]) Dr. Garrett diagnosed Chronic diarrhea history of Colon polyps COPD (chronic obstructive pulmonary disease) ([facility]) DVT (deep venous thrombosis) ([facility]) right leg- 08/30/2009 after surgery, off coumadin since 2013 Fibromyalgia GERD (gastroesophageal reflux disease) Hyperlipidemia Hypothyroidism Migraine on propanolol Obesity Other osteoporosis Papanicolaou smear of cervix with atypical squamous cells cannot exclude high grade squamous intraepithelial lesion (ASC-H) 2009 Cannot R/O HSIL PMH - PAST MEDICAL HISTORY OF 06/2009 Hepatic flexure adenoma- s/p colectomy Postmenopausal bleeding 2008 Superficial thrombophlebitis Tobacco use 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 Unspecified closed fracture of ankle 12/01/06 right Urge incontinence Previous Surgical History PAST SURGICAL HISTORY Procedure Laterality Date BREAST MILK PROC/STORE/DIST left LEFT HEART CATH,PERCUTANEOUS 03/06/1999 Cardiac cath, L heart- reportedly negative LIG/TRNSXJ FLP TUBE ABDL/VAG APPR UNI/BI Tubal ligation PAST SURGICAL HISTORY OF 12/01/06 right ankle (has pins and plates) PAST SURGICAL HISTORY OF 1987 cysts removed from b/l ovaries PAST SURGICAL HISTORY OF 06/17/2009 Hand-assisted laparoscopic right colectomy PAST SURGICAL HISTORY OF 06/20/2009 Repair of ileocolic anastomosis and formation of a diverting loop ileostomy. PAST SURGICAL HISTORY OF 10/21/2009 Take down of ileostomy [place] ECTOPIC W/O SALPINGAND/OOPHORECTOMY Ectopic right fallopian tube removed Family History FAMILY HISTORY Problem Relation Age of Onset Alcohol/Drug Father alcohol Arthritis Father Blood Disease Brother hepatitis b Cancer Sister uterus Coronary Artery Disease Mother Coronary Artery Disease Father Coronary Artery Disease Maternal Grandmother Coronary Artery Disease Maternal Grandfather Coronary Artery Disease Paternal Grandmother Coronary Artery Disease Paternal Grandfather Diabetes Paternal Grandmother Hypertension Father Hypertension Brother Hypertension Brother Hypertension Sister Psychiatry Other niece bipolar Patient Allergies ALLERGIES Allergen Reactions Asa [Aspirin] Swelling Bee Sting Swelling, Shortness of Breath Reeves Peppers [Other] GI Upset Citalopram Other: See Comments Excessive sweating Parmasean Cheese [* Vomiting Wellbutrin [Bupropi* Rash Current Medications Current Outpatient Medications on File Prior to Visit Medication Sig nicotine (NICODERM) 14 mg/24 hr Apply 1 Patch as directed every 24 hours. No smoking with patch. gabapentin (NEURONTIN) 300 mg capsule Take 1 capsule by mouth daily at bedtime for 180 days. zolpidem (AMBIEN) 5 mg tablet Take 1 tablet by mouth at bedtime as needed for up to 90 days. cyclobenzaprine (FLEXERIL) 10 mg tablet Take one (1) tablet three(3) times daily as needed for muscle spasm celecoxib (CELEBREX) 200 mg capsule Take 1 capsule by mouth once daily. diphenoxylate-atropine (LOMOTIL) 2.5-0.025 mg per tablet Take 1 tablet by mouth four times daily as needed for diarrhea for up to 90 days. albuterol HFA (PROVENTIL HFA, VENTOLIN HFA) 90 mcg/actuation inhaler INHALE TWO (2) PUFFS BY MOUTH EVERY 6 HOURS NEEDED FOR SHORTNESS OF BREATH AND WHEEZING levothyroxine (SYNTHROID) 50 mcg tablet TAKE 1 TABLET BY MOUTH ONCE DAILY ON EMPTY STOMACH FOR THYROID. propranolol (INDERAL (more content not included)... [facility] 01-21-2023 History of Presen t illness Narrative Chief Complaint Patient presents with: F/U 3 Month HPI Emily Feliz is a 62 year old female who presents here today for 3 month follow up. Smokes one a day without the patch. She states she is quitting because she can not breath. Has been given Nicotine patches to use. No bowel, Gi, or urinary issues. Has chronic diarrhea and urgency. Takes Lomotil prn. GERD: Stable on Prilosec 40 mg daily. Thyroid: Taking Synthroid 50 mcg daily. Depression/KATHARINA: Taking Cymbalta 30 mg daily. Fibro: Chronic; using Celebrex 200 mg daily, Gabapentin 300 mg at bedtime, Cymbalta 30 mg daily and Flexeril 10 mg TID PRN. DVT: Taking Eliquis 5 mg BID. COPD: Stable with PRN Ventolin inhaler. LANDA: Doing well with use of Inderal 40 mg daily and Tylenol prn. Insomnia: Uses Ambien 5 mg to sleep, this is working well for her. If she is tried she doesn't use it. C/o sore throat which has improved, still has cough, chest congestion, and left ear pain for 7 days. Has been using OTC mucinex. Denies being around anyone who has had covid. She also had an abscess to her gums, states she took a needle and popped it. This feels better. Past medical history, appointments, medications, allergies reviewed. Previous Medical History PAST MEDICAL HISTORY Diagnosis Date Absence of menstruation at age 36 Asthma Seeing Bipolar disorder ([facility]) Cerebral degeneration ([facility]) Dr. Garrett diagnosed Chronic diarrhea history of Colon polyps COPD (chronic obstructive pulmonary disease) ([facility]) DVT (deep venous thrombosis) ([facility]) right leg- 08/30/2009 after surgery, off coumadin since 2013 Fibromyalgia GERD (gastroesophageal reflux disease) Hyperlipidemia Hypothyroidism Migraine on propanolol Obesity Other osteoporosis Papanicolaou smear of cervix with atypical squamous cells cannot exclude high grade squamous intraepithelial lesion (ASC-H) 2009 Cannot R/O HSIL PMH - PAST MEDICAL HISTORY OF 06/2009 Hepatic flexure adenoma- s/p colectomy Postmenopausal bleeding 2008 Superficial thrombophlebitis Tobacco use 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 Unspecified closed fracture of ankle 12/01/06 right Urge incontinence Previous Surgical History PAST SURGICAL HISTORY Procedure Laterality Date BREAST MILK PROC/STORE/DIST left LEFT HEART CATH,PERCUTANEOUS 03/06/1999 Cardiac cath, L heart- reportedly negative LIG/TRNSXJ FLP TUBE ABDL/VAG APPR UNI/BI Tubal ligation PAST SURGICAL HISTORY OF 12/01/06 right ankle (has pins and plates) PAST SURGICAL HISTORY OF 1987 cysts removed from b/l ovaries PAST SURGICAL HISTORY OF 06/17/2009 Hand-assisted laparoscopic right colectomy PAST SURGICAL HISTORY OF 06/20/2009 Repair of ileocolic anastomosis and formation of a diverting loop ileostomy. PAST SURGICAL HISTORY OF 10/21/2009 Take down of ileostomy TX ECTOPIC W/O SALPING&/OOPHORECTOMY Ectopic right fallopian tube removed Family History FAMILY HISTORY Problem Relation Age of Onset Alcohol/Drug Father alcohol Arthritis Father Blood Disease Brother hepatitis b Cancer Sister uterus Coronary Artery Disease Mother Coronary Artery Disease Father Coronary Artery Disease Maternal Grandmother Coronary Artery Disease Maternal Grandfather Coronary Artery Disease Paternal Grandmother Coronary Artery Disease Paternal Grandfather Diabetes Paternal Grandmother Hypertension Father Hypertension Brother Hypertension Brother Hypertension Sister Psychiatry Other niece bipolar Patient Allergies ALLERGIES Allergen Reactions Asa [Aspirin] Swelling Bee Sting Swelling, Shortness of Breath Reeves Peppers [Other] GI Upset Citalopram Other: See Comments Excessive sweating Parmasean Cheese [* Vomiting Wellbutrin [Bupropi* Rash Current Medications Current Outpatient Medications on File Prior to Visit Medication Sig nicotine (NICODERM) 14 mg/24 hr Apply 1 Patch as directed every 24 hours. No smoking with patch. gabapentin (NEURONTIN) 300 mg capsule Take 1 capsule by mouth daily at bedtime for 180 days. zolpidem (AMBIEN) 5 mg tablet Take 1 tablet by mouth at bedtime as needed for up to 90 days. cyclobenzaprine (FLEXERIL) 10 mg tablet Take one (1) tablet three(3) times daily as needed for muscle spasm celecoxib (CELEBREX) 200 mg capsule Take 1 capsule by mouth once daily. diphenoxylate-atropine (LOMOTIL) 2.5-0.025 mg per tablet Take 1 tablet by mouth four times daily as needed for diarrhea for up to 90 days. albuterol HFA (PROVENTIL HFA, VENTOLIN HFA) 90 mcg/actuation inhaler INHALE TWO (2) PUFFS BY MOUTH EVERY 6 HOURS NEEDED FOR SHORTNESS OF BREATH AND WHEEZING levothyroxine (SYNTHROID) 50 mcg tablet TAKE 1 TABLET BY MOUTH ONCE DAILY ON EMPTY STOMACH FOR THYROID. propranolol (INDERAL) 40 mg tablet TAKE ONE (1) TABLET BY MOUTH ONCE DAILY omeprazole (PRILOSEC) 40 mg capsule Take 1 capsule by mouth once daily. DULoxetine (CYMBALTA) 30 mg capsule Take 1 capsule by mouth once daily. fluticasone (FLONASE) 50 mcg/actuation nasal spray USE 1 SPRAY IN EACH NOSTRIL ONCE DAILY apixaban (ELIQUIS) 5 mg tab(s) Take 1 tablet by mouth twice daily. diphenhydrAMINE (BANOPHEN) 25 mg capsule Take 1 capsule by mouth every 6 hours as needed. No current facility-administered medications on file prior to visit. Social History Social History Tobacco Use Smoking status: Every Day Packs/day: 3.00 Years: 44.00 Additional pack years: 0.00 Total pack years: 132.00 Types: Cigarettes Smokeless tobacco: Never Tobacco comments: sometimes less d/t headaches. Down to 4 cigarettes per day Vaping Use Vaping Use: Never used Substance Use Topics Alcohol use: No Comment: used to drink heavily up to 2004 Drug use: No EXAM: BP 120/72 Pulse 84 Resp 16 Wt 79.1 kg (174 lb 6.4 oz) BMI 32.95 kg/m General Appearance: Well appearing, alert, in no acute distress, well-hydrated, well nourished. and Overweight. Ears: External ears normal, canals clear. Neck: Supple, no adenopathy; thyroid symmetric, normal size, no bruits. Lungs: Lungs clear to auscultation. No wheezing, rhonchi, rales.. Heart: RRR without murmur, gallop, or rubs. No ectopy. Health Maintenance List Spirometry Never done Alpha-1 Antitrypsin Deficiency Screening Never done Lung Cancer Screening Never done Shingrix Vaccine(1 of 2) Never done Pneumococcal Vaccine(2 - PCV) due on 05/28/2013 RSV Vaccine(1 - 1-dose 60+ series) Never done Pap Testing due on 05/09/2021 HPV Testing due on 05/09/2021 Mammogram Screening due on 05/10/2021 Colorectal Cancer Screening due on 05/23/2022 Influenza Vaccine(1) due on 11/02/2022 Covid-19 Vaccine(1) due on 07/11/2023 Annual PCP Team Chronic Disease Visit due on 10/16/2023 Serum Creatinine due on 10/16/2023 Diabetes Screening due on 10/15/2025 Lipid Screening due on 10/16/2027 DTaP,Tdap,Td Vaccine(2 - Td or Tdap) due on 10/21/2028 Depression Assessment Completed Hepatitis C Screening Completed HIV Screening Completed Data reviewed None ASSESSMENT/PLAN: 1. Fibromyalgia - ICD9: 729.1, ICD10: M79.7 (primary diagnosis) Continue current medications. 2. Encounter for screening mammogram for malignant neoplasm of breast - ICD9: V76.12, ICD10: Z12.31 - Encouraged monthly BSE - Follow up for annual exam in one year. - IVETH SCREENING 3. Screening for cervical cancer - ICD9: V76.2, ICD10: Z12.4 - Encouraged monthly BSE - Follow up for annual exam in one year. - CONSULT TO GYNECOLOGY 4. Need for vaccination - ICD9: V05.9, ICD10: Z23 - PNEUMOCOCCAL VACCINE (PREVNAR 20) 5. Hyperlipidemia, unspecified hyperlipidemia type - ICD9: 272.4, ICD10: E78.5 - Control undetermined, due for labs - Continue current medications - Counseled on healthy diet and regular exercise - Discussed need for and benefit of weight loss. BMI 32.95 kg/(m^2) 6. Intractable headache, unspecified chronicity pattern, unspecified headache type - ICD9: 784.0, ICD10: R51.9 Stable Continue current medications. 7. Chronic insomnia - ICD9: 780.52, ICD10: F51.04 Stable Continue current medications. 8. Mild intermittent asthma without complication - ICD9: 493.90, ICD10: J45.20 - Mild intermittent asthma stable - Continue current medications - Avoidance of triggers recommended 9. Tobacco use disorder - ICD9: 305.1, ICD10: F17.200 - Cessation encouraged. - Physiologic and physical aspects of tobacco addiction as well as strategies for quitting were discussed. - Counseling was given focusing on the harmful effects of this addiction especially given the patient's medical condition(s) which will be worsened because of the chemicals in tobacco. - Counseling was given 3-4 minutes. 10. Chronic obstructive pulmonary disease, unspecified COPD type (HCC) - ICD9: 496, ICD10: J44.9 Continue current medications. 11. Gastroesophageal reflux disease without esophagitis - ICD9: 530.81, ICD10: K21.9 Stable Continue current medications. 12. Hypothyroidism, unspecified type - ICD9: 244.9, ICD10: E03.9 - Instructed patient on importance of taking on an empty stomach either first thing in the morning or at bedtime. Continue current medications. 13. Chronic deep vein thrombosis (DVT) of proximal vein of lower extremity, unspecified laterality (HCC) - ICD9: 453.51, ICD10: I82.5Y9 Continue current medications. 14. Bipolar affective disorder, remission status unspecified (HCC) - ICD9: 296.80, ICD10: F31.9 Continue current medications. 15. Acute bronchitis, unspecified organism - ICD9: 466.0, ICD10: J20.9 Start Doxycycline 100 mg BID x 10 days Follow up in 3 months I agree with the Chief Complaint, ROS, and Past Histories independently gathered by the clinical intranet support and the remaining scribed note accurately describes my personal service to the patient. Medical Decision Making: Problems: Moderate: 2+ stable chronic illnesses Risk: Moderate: Drug management Medical Decision Making Level: 4 - Moderate Edwige Adame MD The documentation for this note was completed by Pebbles Michel Ma acting as scribe for Edwige Adame MD. January 21, 2023 1:48 PM. Pebbles Michel Ma documented in this encounter [facility] 01-15-2023 Miscellaneous Notes OK to refill as ordered Edwige Adame MD Patient has been identified by name and date of : Yes, Provider Dr. Adame Date 01/15/23 Time 4:39 pm Patient phones for refill(s): Requested Prescriptions Pending Prescriptions Disp Refills fluticasone (FLONASE) 50 mcg/actuation nasal spray 3 Each 3 Sig: USE 1 SPRAY IN EACH NOSTRIL ONCE DAILY apixaban (ELIQUIS) 5 mg tab(s) 180 tablet 3 Sig: Take 1 tablet by mouth two times a day. zolpidem (AMBIEN) 5 mg tablet 30 tablet 2 Sig: Take 1 tablet by mouth at bedtime as needed for up to 90 days. diphenoxylate-atropine (LOMOTIL) 2.5-0.025 mg per tablet 90 tablet 2 Sig: Take 1 tablet by mouth four times a day as needed for diarrhea for up to 90 days. Date of last office visit in primary care: 10/15/2022 Date of next office visit in primary care: 01/21/2023 Last 2 Encounter Wt Readings: Date: Wt: 11/19/2022 78.9 kg (174 lb) 10/15/2022 79.4 kg (175 lb) Previous labs/tests for medication: Not applicable Thank you. Kaylyn Martin LPN. Patient has been identified by name and date of : Yes Requested Prescriptions Pending Prescriptions Disp Refills fluticasone (FLONASE) 50 mcg/actuation nasal spray 3 Each 3 Sig: USE 1 SPRAY IN EACH NOSTRIL ONCE DAILY apixaban (ELIQUIS) 5 mg tab(s) 180 tablet 3 Sig: Take 1 tablet by mouth two times a day. zolpidem (AMBIEN) 5 mg tablet 30 tablet 2 Sig: Take 1 tablet by mouth at bedtime as needed for up to 90 days. diphenoxylate-atropine (LOMOTIL) 2.5-0.025 mg per tablet 90 tablet 2 Sig: Take 1 tablet by mouth four times a day as needed for diarrhea for up to 90 days. RX INSTRUCTIONS: Pharmacy initiated this request. No need to notify patient. Jessika Aguayo documented in this encounter [facility] 12-14-2022 Miscellaneous Notes Pt informed, verbalized understanding Suzy Ayala MA OK for nicotine patch as ordered Edwige Adame MD Patient reports she is trying to stop smoking. States she has gone 3 days without a cigarette but having cravings. Asking if PCP would order her patches to assist her with smoking cessation? Pt states she has used patches before but was not ready to quit smoking then. States she is ready to quit now. Uses DDM Sarai. Please call pt with response. Thank you. documented in this encounter [facility] 11-26-2022 Miscellaneous Notes The following approved medication requests have been transmitted electronically. Requested Prescriptions Signed Prescriptions Disp Refills gabapentin (NEURONTIN) 300 mg capsule 90 capsule 1 Sig: Take 1 capsule by mouth daily at bedtime for 180 days. Authorizing Provider: TRINIDAD TAPIA APRN.AUTOMATION TEST DEVELOPER Last Office Visit: 10/15/2022 Future Office Visit: 01/21/2023 Requested Prescriptions Pending Prescriptions Disp Refills gabapentin (NEURONTIN) 300 mg capsule 90 capsule 1 Sig: Take 1 capsule by mouth daily at bedtime for 180 days. Date of Last Labs: 10/15/2022 documented in this encounter [facility] 11-19-2022 Note HNO ID: [id number] Author: Fercho Forman APRN.MARY Service: ? Author Type: Nurse Practitioner Type: Progress Notes Filed: 11/19/2022 12:47 PM Note Text: Subjective HPI HPI Emily Feliz is a 62 year old female who presents today for CC of cough, congestion, ear pain. This started 2 weeks ago. Has tried otc medication for relief. Symptoms are worsened by nothing. Risk factors smoker, hx of copd. .Patient presents with: Sinus Problem: sinus pressure, drainage, productive cough x 2 weeks PAST MEDICAL HISTORY Diagnosis Date Absence of menstruation at age 36 Asthma Seeing Bipolar disorder ([facility]) Cerebral degeneration ([facility]) Dr. Garrett diagnosed Chronic diarrhea history of Colon polyps COPD (chronic obstructive pulmonary disease) ([facility]) DVT (deep venous thrombosis) ([facility]) right leg- 08/30/2009 after surgery, off coumadin since 2013 Fibromyalgia GERD (gastroesophageal reflux disease) Hyperlipidemia Hypothyroidism Migraine on propanolol Obesity Other osteoporosis Papanicolaou smear of cervix with atypical squamous cells cannot exclude high grade squamous intraepithelial lesion (ASC-H) 2008 Cannot R/O HSIL PMH - PAST MEDICAL HISTORY OF 06/2009 Hepatic flexure adenoma- s/p colectomy Postmenopausal bleeding 2008 Superficial thrombophlebitis Tobacco use 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 Unspecified closed fracture of ankle 12/01/06 right Urge incontinence PAST SURGICAL HISTORY Procedure Laterality Date BREAST MILK PROC/STORE/DIST left LEFT HEART CATH,PERCUTANEOUS 03/06/1999 Cardiac cath, L heart- reportedly negative LIG/TRNSXJ FLP TUBE ABDL/VAG APPR UNI/BI Tubal ligation PAST SURGICAL HISTORY OF 12/01/06 right ankle (has pins and plates) PAST SURGICAL HISTORY OF 1987 cysts removed from b/l ovaries PAST SURGICAL HISTORY OF 06/17/2009 Hand-assisted laparoscopic right colectomy PAST SURGICAL HISTORY OF 06/20/2009 Repair of ileocolic anastomosis and formation of a diverting loop ileostomy. PAST SURGICAL HISTORY OF 10/21/2009 Take down of ileostomy TX ECTOPIC W/O SALPINGAND/OOPHORECTOMY Ectopic right fallopian tube removed ALLERGIES Asa [Aspirin], Bee Sting, Reeves Peppers [Other], Citalopram, Parmasean Cheese [Other], and Wellbutrin [Bupropion Hcl] MEDICATIONS zolpidem (AMBIEN) 5 mg tablet Take 1 tablet by mouth at bedtime as needed for up to 90 days. cyclobenzaprine (FLEXERIL) 10 mg tablet Take one (1) tablet three(3) times daily as needed for muscle spasm celecoxib (CELEBREX) 200 mg capsule Take 1 capsule by mouth once daily. diphenoxylate-atropine (LOMOTIL) 2.5-0.025 mg per tablet Take 1 tablet by mouth four times daily as needed for diarrhea for up to 90 days. albuterol HFA (PROVENTIL HFA, VENTOLIN HFA) 90 mcg/actuation inhaler INHALE TWO (2) PUFFS BY MOUTH EVERY 6 HOURS NEEDED FOR SHORTNESS OF BREATH AND WHEEZING gabapentin (NEURONTIN) 300 mg capsule Take 1 capsule by mouth daily at bedtime for 180 days. levothyroxine (SYNTHROID) 50 mcg tablet TAKE 1 TABLET BY MOUTH ONCE DAILY ON EMPTY STOMACH FOR THYROID. propranolol (INDERAL) 40 mg tablet TAKE ONE (1) TABLET BY MOUTH ONCE DAILY omeprazole (PRILOSEC) 40 mg capsule Take 1 capsule by mouth once daily. DULoxetine (CYMBALTA) 30 mg capsule Take 1 capsule by mouth once daily. fluticasone (FLONASE) 50 mcg/actuation nasal spray USE 1 SPRAY IN EACH NOSTRIL ONCE DAILY apixaban (ELIQUIS) 5 mg tab(s) Take 1 tablet by mouth twice daily. diphenhydrAMINE (BANOPHEN) 25 mg capsule Take 1 capsule by mouth every 6 hours as needed. doxycycline monohydrate 100 mg tablet Take 1 tablet by mouth twice daily for 7 days. predniSONE (DELTASONE) 20 mg tablet Take 2 tablets by mouth once daily for 5 days. FAMILY HISTORY Problem Relation Age of Onset Alcohol/Drug Father alcohol Arthritis Father Blood Disease Brother hepatitis b Cancer Sister uterus Coronary Artery Disease Mother Coronary Artery Disease Father Coronary Artery Disease Maternal Grandmother Coronary Artery Disease Maternal Grandfather Coronary Artery Disease Paternal Grandmother Coronary Artery Disease Paternal Grandfather Diabetes Paternal Grandmother Hypertension Father Hypertension Brother Hypertension Brother Hypertension Sister Psychiatry Other niece bipolar Social History Tobacco Use Smoking status: Every Day Packs/day: 3.00 Years: 44.00 Additional pack years: 0.00 Total pack years: 132.00 Types: Cigarettes Smokeless tobacco: Never Tobacco comments: sometimes less d/t headaches. Down to 4 cigarettes per day Vaping Use Vaping Use: Never used Substance Use Topics Alcohol use: No Comment: used to drink heavily up to 2004 Drug use: No Review of Systems Constitutional: Negative for fever. HENT: Positive for congestion. Negative for ear pain, nosebleeds and sore throat. Respiratory: Positive for cough and sputum production. N (more content not included)... [facility] 11-19-2022 History of Presen t illness Narrative Subjective HPI HPI Emily Feliz is a 62 year old female who presents today for CC of cough, congestion, ear pain. This started 2 weeks ago. Has tried otc medication for relief. Symptoms are worsened by nothing. Risk factors smoker, hx of copd. .Patient presents with: Sinus Problem: sinus pressure, drainage, productive cough x 2 weeks PAST MEDICAL HISTORY Diagnosis Date Absence of menstruation at age 36 Asthma Seeing Bipolar disorder (HCC) Cerebral degeneration (HCC) Dr. Garrett diagnosed Chronic diarrhea history of Colon polyps COPD (chronic obstructive pulmonary disease) (HCC) DVT (deep venous thrombosis) (HCC) right leg- 08/30/2009 after surgery, off coumadin since 2013 Fibromyalgia GERD (gastroesophageal reflux disease) Hyperlipidemia Hypothyroidism Migraine on propanolol Obesity Other osteoporosis Papanicolaou smear of cervix with atypical squamous cells cannot exclude high grade squamous intraepithelial lesion (ASC-H) 2008 Cannot R/O HSIL PMH - PAST MEDICAL HISTORY OF 06/2009 Hepatic flexure adenoma- s/p colectomy Postmenopausal bleeding 2008 Superficial thrombophlebitis Tobacco use 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 Unspecified closed fracture of ankle 12/01/06 right Urge incontinence PAST SURGICAL HISTORY Procedure Laterality Date BREAST MILK PROC/STORE/DIST left LEFT HEART CATH,PERCUTANEOUS 03/06/1999 Cardiac cath, L heart- reportedly negative LIG/TRNSXJ FLP TUBE ABDL/VAG APPR UNI/BI Tubal ligation PAST SURGICAL HISTORY OF 12/01/06 right ankle (has pins and plates) PAST SURGICAL HISTORY OF 1987 cysts removed from b/l ovaries PAST SURGICAL HISTORY OF 06/17/2009 Hand-assisted laparoscopic right colectomy PAST SURGICAL HISTORY OF 06/20/2009 Repair of ileocolic anastomosis and formation of a diverting loop ileostomy. PAST SURGICAL HISTORY OF 10/21/2009 Take down of ileostomy TX ECTOPIC W/O SALPING&/OOPHORECTOMY Ectopic right fallopian tube removed ALLERGIES Asa [Aspirin], Bee Sting, Reeves Peppers [Other], Citalopram, Parmasean Cheese [Other], and Wellbutrin [Bupropion Hcl] MEDICATIONS zolpidem (AMBIEN) 5 mg tablet Take 1 tablet by mouth at bedtime as needed for up to 90 days. cyclobenzaprine (FLEXERIL) 10 mg tablet Take one (1) tablet three(3) times daily as needed for muscle spasm celecoxib (CELEBREX) 200 mg capsule Take 1 capsule by mouth once daily. diphenoxylate-atropine (LOMOTIL) 2.5-0.025 mg per tablet Take 1 tablet by mouth four times daily as needed for diarrhea for up to 90 days. albuterol HFA (PROVENTIL HFA, VENTOLIN HFA) 90 mcg/actuation inhaler INHALE TWO (2) PUFFS BY MOUTH EVERY 6 HOURS NEEDED FOR SHORTNESS OF BREATH AND WHEEZING gabapentin (NEURONTIN) 300 mg capsule Take 1 capsule by mouth daily at bedtime for 180 days. levothyroxine (SYNTHROID) 50 mcg tablet TAKE 1 TABLET BY MOUTH ONCE DAILY ON EMPTY STOMACH FOR THYROID. propranolol (INDERAL) 40 mg tablet TAKE ONE (1) TABLET BY MOUTH ONCE DAILY omeprazole (PRILOSEC) 40 mg capsule Take 1 capsule by mouth once daily. DULoxetine (CYMBALTA) 30 mg capsule Take 1 capsule by mouth once daily. fluticasone (FLONASE) 50 mcg/actuation nasal spray USE 1 SPRAY IN EACH NOSTRIL ONCE DAILY apixaban (ELIQUIS) 5 mg tab(s) Take 1 tablet by mouth twice daily. diphenhydrAMINE (BANOPHEN) 25 mg capsule Take 1 capsule by mouth every 6 hours as needed. doxycycline monohydrate 100 mg tablet Take 1 tablet by mouth twice daily for 7 days. predniSONE (DELTASONE) 20 mg tablet Take 2 tablets by mouth once daily for 5 days. FAMILY HISTORY Problem Relation Age of Onset Alcohol/Drug Father alcohol Arthritis Father Blood Disease Brother hepatitis b Cancer Sister uterus Coronary Artery Disease Mother Coronary Artery Disease Father Coronary Artery Disease Maternal Grandmother Coronary Artery Disease Maternal Grandfather Coronary Artery Disease Paternal Grandmother Coronary Artery Disease Paternal Grandfather Diabetes Paternal Grandmother Hypertension Father Hypertension Brother Hypertension Brother Hypertension Sister Psychiatry Other niece bipolar Social History Tobacco Use Smoking status: Every Day Packs/day: 3.00 Years: 44.00 Additional pack years: 0.00 Total pack years: 132.00 Types: Cigarettes Smokeless tobacco: Never Tobacco comments: sometimes less d/t headaches. Down to 4 cigarettes per day Vaping Use Vaping Use: Never used Substance Use Topics Alcohol use: No Comment: used to drink heavily up to 2004 Drug use: No Review of Systems Constitutional: Negative for fever. HENT: Positive for congestion. Negative for ear pain, nosebleeds and sore throat. Respiratory: Positive for cough and sputum production. Negative for shortness of breath and wheezing. Cardiovascular: Negative for chest pain. Musculoskeletal: Negative for neck pain. Skin: Negative for itching and rash. Objective Blood pressure 122/80, pulse 90, temperature 36.1 C (97 F), resp. rate 18, weight 78.9 kg (174 lb), SpO2 96 %. Physical Exam Constitutional: General: She is not in acute distress. Appearance: She is not toxic-appearing or diaphoretic. HENT: Head: Normocephalic and atraumatic. Cardiovascular: Rate and Rhythm: Normal rate and regular rhythm. Heart sounds: Normal heart sounds, S1 normal and S2 normal. Pulmonary: Effort: Pulmonary effort is normal. Breath sounds: Wheezing (expiratory, faint, throughout.) present. No decreased breath sounds, rhonchi or rales. Lymphadenopathy: Cervical: No cervical adenopathy. Right cervical: No superficial cervical adenopathy. Left cervical: No superficial cervical adenopathy. Neurological: Mental Status: She is alert and oriented to person, place, and time. Gait: Gait is intact. ASSESSMENT/PLAN: 1. Sinobronchitis - ICD9: 473.9, 490, ICD10: J32.9, J40 (primary diagnosis) - Will begin treatment with as per antibiotic as written, see orders - Supportive care with plenty of fluids, rest, and analgesia prn. - Follow up in 3-5 days if symptoms persist or worsen. - DOXYCYCLINE MONOHYDRATE 100 MG TABLET - PREDNISONE 20 MG TABLET 2. COPD (chronic obstructive pulmonary disease) with acute bronchitis (HCC) - ICD9: 491.22, ICD10: J44.0, J20.9 As above -If you experience chest pain/shortness of breath go to ER - DOXYCYCLINE MONOHYDRATE 100 MG TABLET - PREDNISONE 20 MG TABLET Fercho Forman APRN.MARY documented in this encounter [facility] 11-01-2022 Miscellaneous Notes Patient notified of results, verbalizes understanding of instructions. Elise Calderon LPN Can you please call the patient and let her know that I reviewed her lab results. Labs were all relatively normal. Thyroid normal. LDL cholesterol was mildly elevated and triglycerides were elevated. I would recommend lifestyle changes at home to help improve this. Try to decrease any processed foods in the diet, try to increase lean protein, vegetables, and get some form of exercise. She may keep upcoming appointment with PCP in January. Please let me know if she has any questions. Thank you. Jim Meneses APRN.AUTOMATION TEST DEVELOPER documented in this encounter [facility] 10-15-2022 Note HNO ID: [id number] Author: Edwige Adame MD Service: ? Author Type: Physician Type: Progress Notes Filed: 10/15/2022 2:59 PM Note Text: Chief Complaint Patient presents with: F/U 3 Month HPI Emily Feliz is a 62 year old female who presents here today for 3 month follow up. Here today for her 3 month follow up. Here today with her granddaughter, Jim. Spends time with her during the summer. Smoking half ppd. GI/GERD - Chronic diarrhea. At times urgency that she doesn't make it to the bathroom. Uses Lomotil prn and Prilosec 40 mg daily. This helps with her diarrhea. Thyroid: Stable, taking Synthroid 50 mcg daily. Denies any missed dosages. LANDA: Stable with Inderal 40 mg daily. Uses Tylenol prn. Reports she gets a pain near right congregational that will radiate into her eyeball. Short lasting, possible stress related Insomnia: Takes Ambien 5 mg daily at bedtime. Depression/KATHARINA: Taking Cymbalta 30 mg daily. Notes increased depression, states that her oldest daughter has got her upset. Had to put a restraining order on her. Fibro: Chronic; using Celebrex 200 mg daily, Gabapentin 300 mg at bedtime, Cymbalta 30 mg daily and Flexeril 10 mg TID PRN. DVT: Taking Eliquis 5 mg BID. COPD: Stable with PRN Ventolin inhaler. Admits she's been gaining weight but has been eating a lot of chocolate lately. Feels this is related to stress. Past medical history, appointments, medications, allergies reviewed. Previous Medical History PAST MEDICAL HISTORY Diagnosis Date Absence of menstruation at age 36 Asthma Seeing Bipolar disorder (HCC) Cerebral degeneration ([facility]) Dr. Garrett diagnosed Chronic diarrhea history of Colon polyps COPD (chronic obstructive pulmonary disease) ([facility]) DVT (deep venous thrombosis) (HCC) right leg- 08/30/2009 after surgery, off coumadin since 2013 Fibromyalgia GERD (gastroesophageal reflux disease) Hyperlipidemia Hypothyroidism Migraine on propanolol Obesity Other osteoporosis Papanicolaou smear of cervix with atypical squamous cells cannot exclude high grade squamous intraepithelial lesion (ASC-H) 2008 Cannot R/O HSIL PMH - PAST MEDICAL HISTORY OF 06/2009 Hepatic flexure adenoma- s/p colectomy Postmenopausal bleeding 2008 Superficial thrombophlebitis Tobacco use 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 Unspecified closed fracture of ankle 12/01/06 right Urge incontinence Previous Surgical History PAST SURGICAL HISTORY Procedure Laterality Date BREAST MILK PROC/STORE/DIST left LEFT HEART CATH,PERCUTANEOUS 03/06/1999 Cardiac cath, L heart- reportedly negative LIG/TRNSXJ FLP TUBE ABDL/VAG APPR UNI/BI Tubal ligation PAST SURGICAL HISTORY OF 12/01/06 right ankle (has pins and plates) PAST SURGICAL HISTORY OF 1987 cysts removed from b/l ovaries PAST SURGICAL HISTORY OF 06/17/2009 Hand-assisted laparoscopic right colectomy PAST SURGICAL HISTORY OF 06/20/2009 Repair of ileocolic anastomosis and formation of a diverting loop ileostomy. PAST SURGICAL HISTORY OF 10/21/2009 Take down of ileostomy [place] ECTOPIC W/O SALPINGAND/OOPHORECTOMY Ectopic right fallopian tube removed Family History FAMILY HISTORY Problem Relation Age of Onset Alcohol/Drug Father alcohol Arthritis Father Blood Disease Brother hepatitis b Cancer Sister uterus Coronary Artery Disease Mother Coronary Artery Disease Father Coronary Artery Disease Maternal Grandmother Coronary Artery Disease Maternal Grandfather Coronary Artery Disease Paternal Grandmother Coronary Artery Disease Paternal Grandfather Diabetes Paternal Grandmother Hypertension Father Hypertension Brother Hypertension Brother Hypertension Sister Psychiatry Other niece bipolar Patient Allergies ALLERGIES Allergen Reactions Asa [Aspirin] Swelling Bee Sting Swelling, Shortness of Breath Reeves Peppers [Other] GI Upset Citalopram Other: See Comments Excessive sweating Parmasean Cheese [* Vomiting Wellbutrin [Bupropi* Rash Current Medications Current Outpatient Medications on File Prior to Visit Medication Sig albuterol HFA (PROVENTIL HFA, VENTOLIN HFA) 90 mcg/actuation inhaler INHALE TWO (2) PUFFS BY MOUTH EVERY 6 HOURS NEEDED FOR SHORTNESS OF BREATH AND WHEEZING gabapentin (NEURONTIN) 300 mg capsule Take 1 capsule by mouth daily at bedtime for 180 days. zolpidem (AMBIEN) 5 mg tablet Take 1 tablet by mouth at bedtime as needed for up to 90 days. celecoxib (CELEBREX) 200 mg capsule TAKE 1 CAPSULE BY MOUTH ONCE DAILY. cyclobenzaprine (FLEXERIL) 10 mg tablet Take one (1) tablet three(3) times daily as needed for muscle spasm levothyroxine (SYNTHROID) 50 mcg tablet TAKE 1 TABLET BY MOUTH ONCE DAILY ON EMPTY STOMACH FOR THYROID. propranolol (INDERAL) 40 mg tablet TAKE ONE (1) TABLET BY MOUTH ONCE DAILY omeprazole (PRILOSEC) 40 mg capsule Take 1 capsule by mouth once daily. DULoxetine (CYMB (more content not included)... [facility] 10-15-2022 History of Presen t illness Narrative Chief Complaint Patient presents with: F/U 3 Month HPI Emily Feliz is a 62 year old female who presents here today for 3 month follow up. Here today for her 3 month follow up. Here today with her granddaughter, Jim. Spends time with her during the summer. Smoking half ppd. GI/GERD - Chronic diarrhea. At times urgency that she doesn't make it to the bathroom. Uses Lomotil prn and Prilosec 40 mg daily. This helps with her diarrhea. Thyroid: Stable, taking Synthroid 50 mcg daily. Denies any missed dosages. LANDA: Stable with Inderal 40 mg daily. Uses Tylenol prn. Reports she gets a pain near right congregational that will radiate into her eyeball. Short lasting, possible stress related Insomnia: Takes Ambien 5 mg daily at bedtime. Depression/KATHARINA: Taking Cymbalta 30 mg daily. Notes increased depression, states that her oldest daughter has got her upset. Had to put a restraining order on her. Fibro: Chronic; using Celebrex 200 mg daily, Gabapentin 300 mg at bedtime, Cymbalta 30 mg daily and Flexeril 10 mg TID PRN. DVT: Taking Eliquis 5 mg BID. COPD: Stable with PRN Ventolin inhaler. Admits she's been gaining weight but has been eating a lot of chocolate lately. Feels this is related to stress. Past medical history, appointments, medications, allergies reviewed. Previous Medical History PAST MEDICAL HISTORY Diagnosis Date Absence of menstruation at age 36 Asthma Seeing Bipolar disorder (HCC) Cerebral degeneration (HCC) Dr. Garrett diagnosed Chronic diarrhea history of Colon polyps COPD (chronic obstructive pulmonary disease) (HCC) DVT (deep venous thrombosis) ([facility]) right leg- 08/30/2009 after surgery, off coumadin since 2013 Fibromyalgia GERD (gastroesophageal reflux disease) Hyperlipidemia Hypothyroidism Migraine on propanolol Obesity Other osteoporosis Papanicolaou smear of cervix with atypical squamous cells cannot exclude high grade squamous intraepithelial lesion (ASC-H) 2008 Cannot R/O HSIL PMH - PAST MEDICAL HISTORY OF 06/2009 Hepatic flexure adenoma- s/p colectomy Postmenopausal bleeding 2008 Superficial thrombophlebitis Tobacco use 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 Unspecified closed fracture of ankle 12/01/06 right Urge incontinence Previous Surgical History PAST SURGICAL HISTORY Procedure Laterality Date BREAST MILK PROC/STORE/DIST left LEFT HEART CATH,PERCUTANEOUS 03/06/1999 Cardiac cath, L heart- reportedly negative LIG/TRNSXJ FLP TUBE ABDL/VAG APPR UNI/BI Tubal ligation PAST SURGICAL HISTORY OF 12/01/06 right ankle (has pins and plates) PAST SURGICAL HISTORY OF 1987 cysts removed from b/l ovaries PAST SURGICAL HISTORY OF 06/17/2009 Hand-assisted laparoscopic right colectomy PAST SURGICAL HISTORY OF 06/20/2009 Repair of ileocolic anastomosis and formation of a diverting loop ileostomy. PAST SURGICAL HISTORY OF 10/21/2009 Take down of ileostomy TX ECTOPIC W/O SALPING&/OOPHORECTOMY Ectopic right fallopian tube removed Family History FAMILY HISTORY Problem Relation Age of Onset Alcohol/Drug Father alcohol Arthritis Father Blood Disease Brother hepatitis b Cancer Sister uterus Coronary Artery Disease Mother Coronary Artery Disease Father Coronary Artery Disease Maternal Grandmother Coronary Artery Disease Maternal Grandfather Coronary Artery Disease Paternal Grandmother Coronary Artery Disease Paternal Grandfather Diabetes Paternal Grandmother Hypertension Father Hypertension Brother Hypertension Brother Hypertension Sister Psychiatry Other niece bipolar Patient Allergies ALLERGIES Allergen Reactions Asa [Aspirin] Swelling Bee Sting Swelling, Shortness of Breath Reeves Peppers [Other] GI Upset Citalopram Other: See Comments Excessive sweating Parmasean Cheese [* Vomiting Wellbutrin [Bupropi* Rash Current Medications Current Outpatient Medications on File Prior to Visit Medication Sig albuterol HFA (PROVENTIL HFA, VENTOLIN HFA) 90 mcg/actuation inhaler INHALE TWO (2) PUFFS BY MOUTH EVERY 6 HOURS NEEDED FOR SHORTNESS OF BREATH AND WHEEZING gabapentin (NEURONTIN) 300 mg capsule Take 1 capsule by mouth daily at bedtime for 180 days. zolpidem (AMBIEN) 5 mg tablet Take 1 tablet by mouth at bedtime as needed for up to 90 days. celecoxib (CELEBREX) 200 mg capsule TAKE 1 CAPSULE BY MOUTH ONCE DAILY. cyclobenzaprine (FLEXERIL) 10 mg tablet Take one (1) tablet three(3) times daily as needed for muscle spasm levothyroxine (SYNTHROID) 50 mcg tablet TAKE 1 TABLET BY MOUTH ONCE DAILY ON EMPTY STOMACH FOR THYROID. propranolol (INDERAL) 40 mg tablet TAKE ONE (1) TABLET BY MOUTH ONCE DAILY omeprazole (PRILOSEC) 40 mg capsule Take 1 capsule by mouth once daily. DULoxetine (CYMBALTA) 30 mg capsule Take 1 capsule by mouth once daily. fluticasone (FLONASE) 50 mcg/actuation nasal spray USE 1 SPRAY IN EACH NOSTRIL ONCE DAILY apixaban (ELIQUIS) 5 mg tab(s) Take 1 tablet by mouth twice daily. diphenhydrAMINE (BANOPHEN) 25 mg capsule Take 1 capsule by mouth every 6 hours as needed. No current facility-administered medications on file prior to visit. Social History Social History Tobacco Use Smoking status: Every Day Packs/day: 3.00 Years: 44.00 Additional pack years: 0.00 Total pack years: 132.00 Types: Cigarettes Smokeless tobacco: Never Tobacco comments: sometimes less d/t headaches. Down to 4 cigarettes per day Vaping Use Vaping Use: Never used Substance Use Topics Alcohol use: No Comment: used to drink heavily up to 2004 Drug use: No EXAM: BP 110/78 (BP Site: Left Arm, BP Position: Sitting, BP Cuff Size: Regular Adult) Pulse 72 Resp 16 Wt 79.4 kg (175 lb) BMI 33.07 kg/m General Appearance: Well appearing, alert, in no acute distress, well-hydrated, well nourished. and Obese. Neck: Supple, no adenopathy; thyroid symmetric, normal size, no bruits. Lungs: Lungs clear to auscultation. No wheezing, rhonchi, rales.. Heart: RRR without murmur, gallop, or rubs. No ectopy. Health Maintenance List SPIROMETRY Never done ALPHA-1 ANTITRYPSIN DEFICIENCY SCREENING Never done LUNG CANCER SCREENING Never done SHINGRIX VACCINE(1 of 2) Never done PNEUMOCOCCAL(2 - PCV) due on 05/28/2013 PAP TESTING due on 05/09/2021 HPV TESTING due on 05/09/2021 MAMMOGRAM due on 05/10/2021 COLORECTAL CANCER SCREENING due on 05/23/2022 COVID-19 VACCINE(1) due on 07/11/2023 INFLUENZA(1) due on 11/02/2022 SERUM CREATININE due on 02/27/2023 HEMOGLOBIN/HEMATOCRIT due on 02/27/2023 ANNUAL PCP TEAM CHRONIC DISEASE VISIT due on 07/11/2023 LIPID SCREEN due on 04/23/2024 DIABETES SCREEN due on 02/27/2025 DTAP,TDAP,TD(2 - Td or Tdap) due on 10/21/2028 DEPRESSION ASSESSMENT Completed HEPATITIS C SCREENING Completed HIV SCREENING Completed Data reviewed None ASSESSMENT/PLAN: 1. Insomnia, unspecified type - ICD9: 780.52, ICD10: G47.00 (primary diagnosis) Continue current medications. - ZOLPIDEM 5 MG TABLET 2. Hypothyroidism, unspecified type - ICD9: 244.9, ICD10: E03.9 - Instructed patient on importance of taking on an empty stomach either first thing in the morning or at bedtime. - check TSH today 3. Fibromyalgia - ICD9: 729.1, ICD10: M79.7 - CELECOXIB 200 MG CAPSULE 4. Anxiety with depression - ICD9: 300.4, ICD10: F41.8 Continue current medications. 5. Chronic diarrhea - ICD9: 787.91, ICD10: K52.9 - DIPHENOXYLATE-ATROPINE 2.5 MG-0.025 MG TABLET 6. Gastroesophageal reflux disease without esophagitis - ICD9: 530.81, ICD10: K21.9 Stable Continue current medications. 7. Intractable headache, unspecified chronicity pattern, unspecified headache type - ICD9: 784.0, ICD10: R51.9 8. Hyperlipidemia, unspecified hyperlipidemia type - ICD9: 272.4, ICD10: E78.5 Check non fasting labs today 9. Chronic kidney disease, stage 3a (HCC) - ICD9: 585.3, ICD10: N18.31 Monitor 10. Chronic deep vein thrombosis (DVT) of proximal vein of lower extremity, unspecified laterality (HCC) - ICD9: 453.51, ICD10: I82.5Y9 11. Degenerative disease of nervous system, unspecified (HCC) - ICD9: 331.9, ICD10: G31.9 Continue current medications. 12. Chronic obstructive pulmonary disease, unspecified COPD type (HCC) - ICD9: 496, ICD10: J44.9 13. Tobacco use disorder - ICD9: 305.1, ICD10: F17.200 - Cessation encouraged. - Physiologic and physical aspects of tobacco addiction as well as strategies for quitting were discussed. - Counseling was given focusing on the harmful effects of this addiction especially given the patient's medical condition(s) which will be worsened because of the chemicals in tobacco. 3 mo f/u, complete labs today I agree with the Chief Complaint, ROS, and Past Histories independently gathered by the clinical intranet support and the remaining scribed note accurately describes my personal service to the patient. Medical Decision Making: Problems: Moderate: 2+ stable chronic illnesses Data: Unique test(s) ordered: 3+ Risk: Moderate: Drug management Medical Decision Making Level: 4 - Moderate Edwige Adame MD The documentation for this note was completed by Lili Angulo Ma acting as scribe for Edwige Adame MD. October 15, 2022 2:53 PM. Lili Angulo Ma documented in this encounter [facility] 10-04-2022 Miscellaneous Notes OK to refill as ordered Edwige Adame MD Patient last visit with PCP 07/10/22 Follow up appointment scheduled 10/15/22 Naomi Julian Ma documented in this encounter [facility] 07-10-2022 Note HNO ID: [id number] Author: Edwige Adame MD Service: ? Author Type: Physician Type: Progress Notes Filed: 07/10/2022 5:17 PM Note Text: Chief Complaint Patient presents with: F/U 3 Month HPI Emily Feliz is a 62 year old female who presents here today for 3 month follow up. Smoking - Continues to still smoke unfortunately. Smokes about 10 cigs per day. GI/Uro - Denies any urinary issues. Chronic diarrhea after eating. States she's had to throw clothes away due to not making it to the bathroom. Does use Lomotil prn and Prilosec 40 mg daily. Medication does help her symptoms. Agrees to IFOBT kit. Fibro: Pain controlled, overall doing well with use of Celebrex 200 mg once daily, Flexeril 10 mg 2 tabs daily, Gabapentin 300 mg 1 pill at bedtime and Cymbalta 30 mg daily. KATHARINA/Depression: Doing well with use of Cymbalta 30 mg daily. Denies feeling down, depressed or hopeless. Dong well on her regimen. Thyroid: Taking Synthroid 50 mcg daily, doing well. No missed dosages. LANDA: Have been doing well with Inderal 40 mg daily. Notes that she woke up with a headache this morning, but this has since improved with use of Tylenol. Insomnia: Taking Ambien 5 mg daily at bedtime. DVT: Is on Eliquis 5 mg BID. Stable with use of medication. Previously took Coumadin but was not able to get into lab often for checks. COPD: Uses prn Ventolin inhaler. Trying to cut back on smoking. Overall states that breathing is doing okay. Notes a cough that causes some axillary pain and chest pain but believes this is related to the fall she had and muscles. HM - Declines Covid vaccine. Mammogram ordered, pt willing to schedule. Agrees to IFOBT. Will get update Pneumo at [facility]. Discussed Shingles she will look into this, may get at pharmacy. Past medical history, appointments, medications, allergies reviewed. Previous Medical History PAST MEDICAL HISTORY Diagnosis Date Absence of menstruation at age 36 Asthma Seeing Bipolar disorder (HCC) Cerebral degeneration (HCC) Dr. Garrett diagnosed Chronic diarrhea history of Colon polyps COPD (chronic obstructive pulmonary disease) ([facility]) DVT (deep venous thrombosis) ([facility]) right leg- 08/30/2009 after surgery, off coumadin since 2013 Fibromyalgia GERD (gastroesophageal reflux disease) Hyperlipidemia Hypothyroidism Migraine on propanolol Obesity Other osteoporosis Papanicolaou smear of cervix with atypical squamous cells cannot exclude high grade squamous intraepithelial lesion (ASC-H) 2008 Cannot R/O HSIL PMH - PAST MEDICAL HISTORY OF 06/2009 Hepatic flexure adenoma- s/p colectomy Postmenopausal bleeding 2008 Superficial thrombophlebitis Tobacco use 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 Unspecified closed fracture of ankle 12/01/06 right Urge incontinence Previous Surgical History PAST SURGICAL HISTORY Procedure Laterality Date BREAST MILK PROC/STORE/DIST left LEFT HEART CATH,PERCUTANEOUS 03/06/1999 Cardiac cath, L heart- reportedly negative LIG/TRNSXJ FLP TUBE ABDL/VAG APPR UNI/BI Tubal ligation PAST SURGICAL HISTORY OF 12/01/06 right ankle (has pins and plates) PAST SURGICAL HISTORY OF 1987 cysts removed from b/l ovaries PAST SURGICAL HISTORY OF 06/17/2009 Hand-assisted laparoscopic right colectomy PAST SURGICAL HISTORY OF 06/20/2009 Repair of ileocolic anastomosis and formation of a diverting loop ileostomy. PAST SURGICAL HISTORY OF 10/21/2009 Take down of ileostomy [place] ECTOPIC W/O SALPINGAND/OOPHORECTOMY Ectopic right fallopian tube removed Family History FAMILY HISTORY Problem Relation Age of Onset Alcohol/Drug Father alcohol Arthritis Father Blood Disease Brother hepatitis b Cancer Sister uterus Coronary Artery Disease Mother Coronary Artery Disease Father Coronary Artery Disease Maternal Grandmother Coronary Artery Disease Maternal Grandfather Coronary Artery Disease Paternal Grandmother Coronary Artery Disease Paternal Grandfather Diabetes Paternal Grandmother Hypertension Father Hypertension Brother Hypertension Brother Hypertension Sister Psychiatry Other niece bipolar Patient Allergies ALLERGIES Allergen Reactions Asa [Aspirin] Swelling Bee Sting Swelling, Shortness of Breath Reeves Peppers [Other] GI Upset Citalopram Other: See Comments Excessive sweating Parmasean Cheese [* Vomiting Wellbutrin [Bupropi* Rash Current Medications Current Outpatient Medications on File Prior to Visit Medication Sig albuterol HFA (PROVENTIL HFA, VENTOLIN HFA) 90 mcg/actuation inhaler INHALE TWO PUFFS EVERY 6 HOURS NEEDED FOR SHORTNESS OF BREATH OR WHEEZING (BULK) celecoxib (CELEBREX) 200 mg capsule TAKE 1 CAPSULE BY MOUTH ONCE DAILY. zolpidem (AMBIEN) 5 mg tablet Take 1 tablet by mouth at bedtime as needed for up to 90 days. cyclobenzaprine (FLEXERIL) 10 mg tablet Take one (1) tablet three(3) times daily as ne (more content not included)... [facility] 07-10-2022 History of Presen t illness Narrative Chief Complaint Patient presents with: F/U 3 Month HPI Emily Feliz is a 62 year old female who presents here today for 3 month follow up. Smoking - Continues to still smoke unfortunately. Smokes about 10 cigs per day. GI/Uro - Denies any urinary issues. Chronic diarrhea after eating. States she's had to throw clothes away due to not making it to the bathroom. Does use Lomotil prn and Prilosec 40 mg daily. Medication does help her symptoms. Agrees to IFOBT kit. Fibro: Pain controlled, overall doing well with use of Celebrex 200 mg once daily, Flexeril 10 mg 2 tabs daily, Gabapentin 300 mg 1 pill at bedtime and Cymbalta 30 mg daily. KATHARINA/Depression: Doing well with use of Cymbalta 30 mg daily. Denies feeling down, depressed or hopeless. Dong well on her regimen. Thyroid: Taking Synthroid 50 mcg daily, doing well. No missed dosages. LANDA: Have been doing well with Inderal 40 mg daily. Notes that she woke up with a headache this morning, but this has since improved with use of Tylenol. Insomnia: Taking Ambien 5 mg daily at bedtime. DVT: Is on Eliquis 5 mg BID. Stable with use of medication. Previously took Coumadin but was not able to get into lab often for checks. COPD: Uses prn Ventolin inhaler. Trying to cut back on smoking. Overall states that breathing is doing okay. Notes a cough that causes some axillary pain and chest pain but believes this is related to the fall she had and muscles. HM - Declines Covid vaccine. Mammogram ordered, pt willing to schedule. Agrees to IFOBT. Will get update Pneumo at [facility]. Discussed Shingles she will look into this, may get at pharmacy. Past medical history, appointments, medications, allergies reviewed. Previous Medical History PAST MEDICAL HISTORY Diagnosis Date Absence of menstruation at age 36 Asthma Seeing Bipolar disorder (HCC) Cerebral degeneration (HCC) Dr. Garrett diagnosed Chronic diarrhea history of Colon polyps COPD (chronic obstructive pulmonary disease) (HCC) DVT (deep venous thrombosis) (HCC) right leg- 08/30/2009 after surgery, off coumadin since 2013 Fibromyalgia GERD (gastroesophageal reflux disease) Hyperlipidemia Hypothyroidism Migraine on propanolol Obesity Other osteoporosis Papanicolaou smear of cervix with atypical squamous cells cannot exclude high grade squamous intraepithelial lesion (ASC-H) 2008 Cannot R/O HSIL PMH - PAST MEDICAL HISTORY OF 06/2009 Hepatic flexure adenoma- s/p colectomy Postmenopausal bleeding 2008 Superficial thrombophlebitis Tobacco use 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 Unspecified closed fracture of ankle 12/01/06 right Urge incontinence Previous Surgical History PAST SURGICAL HISTORY Procedure Laterality Date BREAST MILK PROC/STORE/DIST left LEFT HEART CATH,PERCUTANEOUS 03/06/1999 Cardiac cath, L heart- reportedly negative LIG/TRNSXJ FLP TUBE ABDL/VAG APPR UNI/BI Tubal ligation PAST SURGICAL HISTORY OF 12/01/06 right ankle (has pins and plates) PAST SURGICAL HISTORY OF 1987 cysts removed from b/l ovaries PAST SURGICAL HISTORY OF 06/17/2009 Hand-assisted laparoscopic right colectomy PAST SURGICAL HISTORY OF 06/20/2009 Repair of ileocolic anastomosis and formation of a diverting loop ileostomy. PAST SURGICAL HISTORY OF 10/21/2009 Take down of ileostomy TX ECTOPIC W/O SALPING&/OOPHORECTOMY Ectopic right fallopian tube removed Family History FAMILY HISTORY Problem Relation Age of Onset Alcohol/Drug Father alcohol Arthritis Father Blood Disease Brother hepatitis b Cancer Sister uterus Coronary Artery Disease Mother Coronary Artery Disease Father Coronary Artery Disease Maternal Grandmother Coronary Artery Disease Maternal Grandfather Coronary Artery Disease Paternal Grandmother Coronary Artery Disease Paternal Grandfather Diabetes Paternal Grandmother Hypertension Father Hypertension Brother Hypertension Brother Hypertension Sister Psychiatry Other niece bipolar Patient Allergies ALLERGIES Allergen Reactions Asa [Aspirin] Swelling Bee Sting Swelling, Shortness of Breath Reeves Peppers [Other] GI Upset Citalopram Other: See Comments Excessive sweating Parmasean Cheese [* Vomiting Wellbutrin [Bupropi* Rash Current Medications Current Outpatient Medications on File Prior to Visit Medication Sig albuterol HFA (PROVENTIL HFA, VENTOLIN HFA) 90 mcg/actuation inhaler INHALE TWO PUFFS EVERY 6 HOURS NEEDED FOR SHORTNESS OF BREATH OR WHEEZING (BULK) celecoxib (CELEBREX) 200 mg capsule TAKE 1 CAPSULE BY MOUTH ONCE DAILY. zolpidem (AMBIEN) 5 mg tablet Take 1 tablet by mouth at bedtime as needed for up to 90 days. cyclobenzaprine (FLEXERIL) 10 mg tablet Take one (1) tablet three(3) times daily as needed for muscle spasm levothyroxine (SYNTHROID) 50 mcg tablet TAKE 1 TABLET BY MOUTH ONCE DAILY ON EMPTY STOMACH FOR THYROID. gabapentin (NEURONTIN) 300 mg capsule Take 1 capsule by mouth daily at bedtime for 90 days. propranolol (INDERAL) 40 mg tablet TAKE ONE (1) TABLET BY MOUTH ONCE DAILY omeprazole (PRILOSEC) 40 mg capsule Take 1 capsule by mouth once daily. DULoxetine (CYMBALTA) 30 mg capsule Take 1 capsule by mouth once daily. fluticasone (FLONASE) 50 mcg/actuation nasal spray USE 1 SPRAY IN EACH NOSTRIL ONCE DAILY apixaban (ELIQUIS) 5 mg tab(s) Take 1 tablet by mouth twice daily. diphenhydrAMINE (BANOPHEN) 25 mg capsule Take 1 capsule by mouth every 6 hours as needed. nicotine (NICODERM) 21 mg/24 hr Apply 1 Patch as directed every 24 hours. No current facility-administered medications on file prior to visit. Social History Social History Tobacco Use Smoking status: Every Day Packs/day: 3.00 Years: 44.00 Pack years: 132.00 Types: Cigarettes Smokeless tobacco: Never Tobacco comments: sometimes less d/t headaches. Down to 4 cigarettes per day Vaping Use Vaping Use: Never used Substance Use Topics Alcohol use: No Comment: used to drink heavily up to 2004 Drug use: No EXAM: BP 112/74 (BP Site: Left Arm, BP Position: Sitting, BP Cuff Size: Regular Adult) Pulse 68 Resp 16 Wt 76.9 kg (169 lb 9.6 oz) BMI 32.05 kg/m General Appearance: Well appearing, alert, in no acute distress, well-hydrated, well nourished. and Obese. Neck: Supple, no adenopathy; thyroid symmetric, normal size, no bruits. Lungs: Lungs clear to auscultation. No wheezing, rhonchi, rales.. Heart: RRR without murmur, gallop, or rubs. No ectopy. Health Maintenance List COVID-19 VACCINE(1) Never done SPIROMETRY Never done ALPHA-1 ANTITRYPSIN DEFICIENCY SCREENING Never done LUNG CANCER SCREENING Never done SHINGRIX VACCINE(1 of 2) Never done PNEUMOCOCCAL(2 - PCV) due on 05/28/2013 PAP TESTING due on 05/09/2021 HPV TESTING due on 05/09/2021 MAMMOGRAM due on 05/10/2021 DEPRESSION ASSESSMENT due on 03/04/2022 COLORECTAL CANCER SCREENING due on 05/23/2022 INFLUENZA(Season Ended) due on 11/02/2022 ANNUAL PCP TEAM CHRONIC DISEASE VISIT due on 06/20/2023 LIPID SCREEN due on 04/23/2024 DIABETES SCREEN due on 02/27/2025 DTAP,TDAP,TD(2 - Td or Tdap) due on 10/21/2028 HEPATITIS C SCREENING Completed HIV SCREENING Completed Data reviewed None ASSESSMENT/PLAN: 1. Insomnia, unspecified type - ICD9: 780.52, ICD10: G47.00 (primary diagnosis) - Stable on current medication regimen - ZOLPIDEM 5 MG TABLET 2. Fibromyalgia - ICD9: 729.1, ICD10: M79.7 - Stable on current medication regimen 3. Anxiety with depression - ICD9: 300.4, ICD10: F41.8 - Stable on current medications 4. Gastroesophageal reflux disease without esophagitis - ICD9: 530.81, ICD10: K21.9 - Stable - Continue current medication regimen. 5. Chronic diarrhea - ICD9: 787.91, ICD10: K52.9 - Stable with use of Lomotil 6. Venous thrombosis - ICD9: 453.9, ICD10: I82.90 - Continue current medication regimen. 7. Hypothyroidism, unspecified type - ICD9: 244.9, ICD10: E03.9 - Instructed patient on importance of taking on an empty stomach either first thing in the morning or at bedtime. - continue current dose of Synthroid 0.050 mg 8. Intractable headache, unspecified chronicity pattern, unspecified headache type - ICD9: 784.0, ICD10: R51.9 9. Chronic obstructive pulmonary disease, unspecified COPD type (HCC) - ICD9: 496, ICD10: J44.9 - Stable - Tobacco cessation encouraged. 10. Tobacco use disorder - ICD9: 305.1, ICD10: F17.200 - Cessation encouraged. - Physiologic and physical aspects of tobacco addiction as well as strategies for quitting were discussed. - Counseling was given focusing on the harmful effects of this addiction especially given the patient's medical condition(s) which will be worsened because of the chemicals in tobacco. 11. Screening for colon cancer - ICD9: V76.51, ICD10: Z12.11 - IFOBT given today for pt - FECAL OCCULT BLOOD TEST 3 mo f/u with labs. Handicap placard written for today. I agree with the Chief Complaint, ROS, and Past Histories independently gathered by the clinical intranet support and the remaining scribed note accurately describes my personal service to the patient. Medical Decision Making: Problems: Moderate: 2+ stable chronic illnesses Data: Unique test(s) ordered: 3+ Risk: Moderate: Drug management Medical Decision Making Level: 4 - Moderate Edwige Adame MD The documentation for this note was completed by Lili Angulo Ma acting as scribe for Edwige Adame MD. July 10, 2022 3:58 PM. Lili Angulo Ma documented in this encounter [facility] 06-26-2022 Miscellaneous Notes Pt notified. Pebbles Michel Ma There is not anything stronger than what she is already on that can be used; continue current meds, use ice/heat. Edwige Adame MD Patient calls and states that she has had rib pain and under her left arm pit since she fell down the stairs. Patient states that she has excruciating when she coughs in that area. Patient been taking tylenol which has not helped as well as prednisone and gabapentin. Patient asking if provider can send a prescription for something for the pain? Patient's pharmacy is [facility]. Please review and advise, Misty Patterson RN documented in this encounter [facility] 06-19-2022 Note HNO ID: [id number] Author: Edwige Adame MD Service: ? Author Type: Physician Type: Progress Notes Filed: 06/19/2022 3:03 PM Note Text: Chief Complaint Patient presents with: ER F/U: [facility] for fall HPI Emily Fleiz is a 62 year old female who presents here today for an ER follow up. Pt here today for a [facility] ER follow up on 06/15/22 for middle back that radiates into the left arm. She stated she had fallen about a week before going to ER. She tried to step over the gate on the stairs that keep her dogs from going upstairs and she fell trying to step over the gate again to go downstairs. She states her pain is still about 8/10 at this time, burning, throbbing and radiating into the arm. She has been taking Tylenol that only helps a little bit. Pain is worse with coughing and laying down. The pain does keep her up at night. She has not used any heat or ice. [facility] ER did not give her anything for pain. She states ER said she had severe bruising to her ribs but no fractures. She states she is moving her bed upstairs so she does not have to do stairs any as often because she almost fell down stairs again yesterday. Pt still taking Celebrex 200 mg daily and Gabapentin 300 mg at bedtime. Uses Flexeril 10 mg BID. Below copied from [facility] [employer]: HPI - Fall History of Present Illness Chief Complaint: Chest Other Occured/Mechanism Occurred: Weeks (1) Narrative: Patient presents after a fall that occurred last week. Patient states she fell down some steps. Patient hit her head at that time. Patient is on Coumadin. Patient also injured the left side of her chest when she fell. Patient states her pain is aching. Patient states it is worse when she moves her left arm. Patient states it is also worse with deep breathing. Patient denies any loss of consciousness. Patient states her pain radiates into her left upper back under her shoulder blade. Patient states Tylenol has been helping with the pain. Patient denies any shortness of breath. Fall down steps #: 1 flight Pain/Injury Location: Left chest and head Pain Location: head and chest Quality of Pain: Aching Worsened by: Movement of her left arm and deep breathing Relieved by: Tylenol Associated Symptoms Associated Symptoms: Negative for Parasthesias, Weakness, Loss of function, Inability to ambulate or Loss of consciousness X-rays of the right ribs were obtained. There are 5 views. On my independent interpretation, there is no acute fracture. There is no pneumothorax. There is no pleural effusion noted. There is no acute cardiopulmonary process noted. Radiologist also interpreted the x-rays and agrees. CT scan of the brain was obtained. There is no acute intracranial abnormality. This was interpreted by the radiologist and was also independently reviewed by myself. Treatment and Re-Evaluation Narrative: Patient was advised of her findings. Patient is feeling better on reevaluation. Patient was given head injury instructions. Patient was instructed to use Tylenol or ibuprofen as needed for pain. Patient was instructed return to the emergency department if worse in any way. Patient was instructed to follow-up with her primary care physician in 5 to 7 days. Patient understood and was agreeable with the plan. All questions were answered. Past medical history, appointments, medications, allergies reviewed. Previous Medical History PAST MEDICAL HISTORY Diagnosis Date Absence of menstruation at age 36 Asthma Seeing Bipolar disorder ([facility]) Cerebral degeneration ([facility]) Dr. Garrett diagnosed Chronic diarrhea history of Colon polyps COPD (chronic obstructive pulmonary disease) ([facility]) DVT (deep venous thrombosis) ([facility]) right leg- 08/30/2009 after surgery, off coumadin since 2013 Fibromyalgia GERD (gastroesophageal reflux disease) Hyperlipidemia Hypothyroidism Migraine on propanolol Obesity Other osteoporosis Papanicolaou smear of cervix with atypical squamous cells cannot exclude high grade squamous intraepithelial lesion (ASC-H) 2008 Cannot R/O HSIL PMH - PAST MEDICAL HISTORY OF 06/2009 Hepatic flexure adenoma- s/p colectomy Postmenopausal bleeding 2008 Superficial thrombophlebitis Tobacco use 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 Unspecified closed fracture of ankle 12/01/06 right Urge incontinence Previous Surgical History PAST SURGICAL HISTORY Procedure Laterality Date BREAST MILK PROC/STORE/DIST left LEFT HEART CATH,PERCUTANEOUS 03/06/1999 Cardiac cath, L heart- reportedly negative LIG/TRNSXJ FLP TUBE ABDL/VAG APPR UNI/BI Tubal ligation PAST SURGICAL HISTORY OF 12/01/06 right ankle (has pins and plates) PAST SURGICAL HISTORY OF 1987 cysts removed from b/l ovaries PAST SURGICAL HISTORY OF 06/17/2009 Hand-assisted laparoscopic right colectomy PAST SURGICAL HISTORY OF 06/20/2009 Repair of ileocolic anastomosis and formation of a diverting lo (more content not included)... [facility] 06-08-2022 Miscellaneous Notes The following approved medication requests have been transmitted electronically. Requested Prescriptions Pending Prescriptions Disp Refills albuterol HFA (PROVENTIL HFA, VENTOLIN HFA) 90 mcg/actuation inhaler [Pharmacy Med Name: albuterol sulfate HFA 90 mcg/actuation aerosol inhaler] 6.7 g 3 Sig: INHALE TWO PUFFS EVERY 6 HOURS NEEDED FOR SHORTNESS OF BREATH OR WHEEZING (BULK) Trinidad Tapia APRN.MARY documented in this encounter [facility] 05-23-2022 Note Patient Outreach (IN TMMN) EMILY FELIZ ([id number]) 1960 F Date Time Provider Department 05/23/22 EDWIGE ADAME During your visit today, we recorded the following information about you: Allergies As of Date: 05/23/2022 Noted Allergy Reaction ASA (ASPIRIN) 10/27/2015 7 - Swelling BEE STING 10/27/2015 7 - Swelling 12 - Shortness of Breath reeves peppers [Other] 10/28/2009 8 - GI Upset CITALOPRAM 05/20/2019 14 - Other: See Comments Comments: Excessive sweating parmasean cheese [Other] 10/28/2009 11 - Vomiting WELLBUTRIN (BUPROPION HCL) 04/25/2009 2 - Rash Date Reviewed: 03/21/2022 Reviewed by: Elizabeth Garcia LPN - Fully Assessed Visit Diagnosis:Encounter for screening mammogram for breast cancer [Z12.31] Order(s):[facility] SCREENING [[id number]] Order #: [id number] FUTURE Prescriptions as of 05/28/2022 - celecoxib (CELEBREX) 200 mg capsule TAKE 1 CAPSULE BY MOUTH ONCE DAILY. - zolpidem (AMBIEN) 5 mg tablet Take 1 tablet by mouth at bedtime as needed for up to 90 days. - cyclobenzaprine (FLEXERIL) 10 mg tablet Take one (1) tablet three(3) times daily as needed for muscle spasm - levothyroxine (SYNTHROID) 50 mcg tablet TAKE 1 TABLET BY MOUTH ONCE DAILY ON EMPTY STOMACH FOR THYROID. - gabapentin (NEURONTIN) 300 mg capsule Take 1 capsule by mouth daily at bedtime for 90 days. - propranolol (INDERAL) 40 mg tablet TAKE ONE (1) TABLET BY MOUTH ONCE DAILY - omeprazole (PRILOSEC) 40 mg capsule Take 1 capsule by mouth once daily. - DULoxetine (CYMBALTA) 30 mg capsule Take 1 capsule by mouth once daily. - albuterol HFA (PROVENTIL HFA, VENTOLIN HFA) 90 mcg/actuation inhaler INHALE TWO(2) PUFFS INTO LUNGS EVERY SIX(6) HOURS NEEDED FOR WHEEZING OR FOR SHORTNESS OF BREATH - fluticasone (FLONASE) 50 mcg/actuation nasal spray USE 1 SPRAY IN EACH NOSTRIL ONCE DAILY - apixaban (ELIQUIS) 5 mg tab(s) Take 1 tablet by mouth twice daily. - diphenhydrAMINE (BANOPHEN) 25 mg capsule Take 1 capsule by mouth every 6 hours as needed. - nicotine (NICODERM) 21 mg/24 hr Apply 1 Patch as directed every 24 hours. Problem List As Of Date 05/23/2022 Noted Resolved OSTEOPOROSIS NEC [M81.8] Headache [R51.9] 07/13/2008 Abnormal mammogram, unspecified [R92.8] 11/17/2008 04/04/2022 Osteopenia [M85.80] 01/22/2009 Venous Thrombosis [I82.90] 09/12/2009 Hypothyroidism [E03.9] 11/15/2015 Urge incontinence [N39.41] Bipolar disorder (HCC) [F31.9] Gastroesophageal reflux disease without esophag*11/28/2015 Fibromyalgia [M79.7] Chronic diarrhea [K52.9] Asthma [J45.909] Cerebral degeneration (HCC) [G31.9] COPD (chronic obstructive pulmonary disease) (H* Tobacco use disorder [F17.200] 11/28/2015 Hyperlipidemia [E78.5] Chronic insomnia [F51.04] 01/04/2022 Encounter Status:Closed by EPIC, PRODUSER on 05/28/22 [facility] 05-10-2022 Miscellaneous Notes OK to refill as ordered Edwige Adame MD Patient phones requesting refills as follows: Requested Prescriptions Pending Prescriptions Disp Refills celecoxib (CELEBREX) 200 mg capsule [Pharmacy Med Name: CELECOXIB 200 MG CAPS 200 Capsule] 30 capsule 10 Sig: TAKE 1 CAPSULE BY MOUTH ONCE DAILY. SANDIE-04/06/22 Labs-01/04/22 NOV-07/10/22 med filled 02/12/22 Please review and advise. Elise Calderon LPN documented in this encounter [facility] 05-04-2022 Miscellaneous Notes Approved. PDMP website checked and validated. All prescriptions have been APPROPRIATELY filled. No suspicious activity was identified. 05/04/2022 by Trinidad Tapia APRN.CNP The following approved medication requests have been transmitted electronically. Requested Prescriptions Signed Prescriptions Disp Refills zolpidem (AMBIEN) 5 mg tablet 30 tablet 2 Sig: Take 1 tablet by mouth at bedtime as needed for up to 90 days. Authorizing Provider: TRINIDAD TAPIA cyclobenzaprine (FLEXERIL) 10 mg tablet 60 tablet 5 Sig: Take one (1) tablet three(3) times daily as needed for muscle spasm Authorizing Provider: TRINIDAD TAPIA APRN.CNP Patient has been identified by name and date of : Yes Requested Prescriptions Pending Prescriptions Disp Refills zolpidem (AMBIEN) 5 mg tablet 30 tablet 2 Sig: Take 1 tablet by mouth at bedtime as needed for up to 90 days. cyclobenzaprine (FLEXERIL) 10 mg tablet 60 tablet 5 Sig: Take by mouth. TAKE ONE (1) TABLET THREE(3) TIMES DAILY NEEDED FOR MUSCLE SPASM SANDIE-04/06/22 Labs-02/27/22 NOV-07/10/22 RX INSTRUCTIONS: Patient aware RX will be sent to pharmacy. No need to notify patient. Abena Mcfadden documented in this encounter [facility] 04-06-2022 Note HNO ID: [id number] Author: Edwige Adame MD Service: ? Author Type: Physician Type: Progress Notes Filed: 04/09/2022 5:41 PM Note Text: Chief Complaint Patient presents with: F/U 3 Month: HPI Emily Feliz is a 61 year old female who presents here today for a 3 month follow up. Pt here today for a 3 month follow up. Completed VV recently due to viral URI and seen in [facility]. Tobacco - Still smoking, but trying to cut back. Has talked about switching to vape. GI - Uses Lomotil prn. GI stable. GERD - Symptoms stable on Prilosec 40 mg daily. DVT - Stable with use of Eliquis 5 mg bid. LANDA - Controlled with use of Inderal 40 mg daily. Thyroid - On current regimen of Synthroid 50 mcg daily. Denies any missed dosages, feels stable on this dosage. Insomnia - Doing well with use of Ambien 5 mg at bedtime. Fibro - Pain controlled with use of Celebrex 200 mg once daily and Cymbalta 30 mg daily. KATHARINA/Depression - Doing well with use of Cymbalta 30 mg daily. COPD - Uses prn Ventolin inhaler. Trying to cut back on smoking. Had recent exacerbation on 03/21/22. She came into [facility] on 03/21/22 where she was treated with Doxycycline 100 mg bid, Prednisone and had Chest XR completed. No abnormalities on XR. Pt notes she finished recent rx for abx and Prednisone. Since that time she's had a sore throat (mainly with eating) shortly after finishing medication. She was eating dry cereal and her tongue started bleeding. She notes sores/blisters on her tongue. Has used Adipex in the past for weight loss. Past medical history, appointments, medications, allergies reviewed. Previous Medical History PAST MEDICAL HISTORY Diagnosis Date Absence of menstruation at age 36 Asthma Seeing Bipolar disorder (HCC) Cerebral degeneration (HCC) Dr. Garrett diagnosed Chronic diarrhea history of Colon polyps COPD (chronic obstructive pulmonary disease) ([facility]) DVT (deep venous thrombosis) ([facility]) right leg- 08/30/2009 after surgery, off coumadin since 2013 Fibromyalgia GERD (gastroesophageal reflux disease) Hyperlipidemia Hypothyroidism Migraine on propanolol Obesity Other osteoporosis Papanicolaou smear of cervix with atypical squamous cells cannot exclude high grade squamous intraepithelial lesion (ASC-H) 2008 Cannot R/O HSIL PMH - PAST MEDICAL HISTORY OF 06/2009 Hepatic flexure adenoma- s/p colectomy Postmenopausal bleeding 2008 Superficial thrombophlebitis Tobacco use 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 Unspecified closed fracture of ankle 12/01/06 right Urge incontinence Previous Surgical History PAST SURGICAL HISTORY Procedure Laterality Date BREAST MILK PROC/STORE/DIST left LEFT HEART CATH,PERCUTANEOUS 03/06/1999 Cardiac cath, L heart- reportedly negative LIG/TRNSXJ FLP TUBE ABDL/VAG APPR UNI/BI Tubal ligation PAST SURGICAL HISTORY OF 12/01/06 right ankle (has pins and plates) PAST SURGICAL HISTORY OF 1987 cysts removed from b/l ovaries PAST SURGICAL HISTORY OF 06/17/2009 Hand-assisted laparoscopic right colectomy PAST SURGICAL HISTORY OF 06/20/2009 Repair of ileocolic anastomosis and formation of a diverting loop ileostomy. PAST SURGICAL HISTORY OF 10/21/2009 Take down of ileostomy TX ECTOPIC W/O SALPINGAND/OOPHORECTOMY Ectopic right fallopian tube removed Family History FAMILY HISTORY Problem Relation Age of Onset Alcohol/Drug Father alcohol Arthritis Father Blood Disease Brother hepatitis b Cancer Sister uterus Coronary Artery Disease Mother Coronary Artery Disease Father Coronary Artery Disease Maternal Grandmother Coronary Artery Disease Maternal Grandfather Coronary Artery Disease Paternal Grandmother Coronary Artery Disease Paternal Grandfather Diabetes Paternal Grandmother Hypertension Father Hypertension Brother Hypertension Brother Hypertension Sister Psychiatry Other niece bipolar Patient Allergies ALLERGIES Allergen Reactions Asa [Aspirin] Swelling Bee Sting Swelling, Shortness of Breath Reeves Peppers [Other] GI Upset Citalopram Other: See Comments Excessive sweating Parmasean Cheese [* Vomiting Wellbutrin [Bupropi* Rash Current Medications Current Outpatient Medications on File Prior to Visit Medication Sig doxycycline hyclate (VIBRAMYCIN) 100 mg capsule Take 1 capsule by mouth twice daily for 10 days. predniSONE (DELTASONE) 10 mg tablet Take 4 tabs daily for 3 days, then 2 tabs daily for 3 days, then 1 tab daily for 3 days with food. levothyroxine (SYNTHROID) 50 mcg tablet TAKE 1 TABLET BY MOUTH ONCE DAILY ON EMPTY STOMACH FOR THYROID. gabapentin (NEURONTIN) 300 mg capsule Take 1 capsule by mouth daily at bedtime for 90 days. propranolol (INDERAL) 40 mg tablet TAKE ONE (1) TABLET BY MOUTH ONCE DAILY celecoxib (CELEBREX) 200 mg capsule Take 1 capsule by mouth once daily. omeprazole (PRILOSEC) 40 mg capsule Take 1 capsule by mouth once daily (more content not included)... [facility] 04-06-2022 History of Presen t illness Narrative Chief Complaint Patient presents with: F/U 3 Month: HPI Emily Feliz is a 61 year old female who presents here today for a 3 month follow up. Pt here today for a 3 month follow up. Completed VV recently due to viral URI and seen in . Tobacco - Still smoking, but trying to cut back. Has talked about switching to vape. GI - Uses Lomotil prn. GI stable. GERD - Symptoms stable on Prilosec 40 mg daily. DVT - Stable with use of Eliquis 5 mg bid. LANDA - Controlled with use of Inderal 40 mg daily. Thyroid - On current regimen of Synthroid 50 mcg daily. Denies any missed dosages, feels stable on this dosage. Insomnia - Doing well with use of Ambien 5 mg at bedtime. Fibro - Pain controlled with use of Celebrex 200 mg once daily and Cymbalta 30 mg daily. KATHARINA/Depression - Doing well with use of Cymbalta 30 mg daily. COPD - Uses prn Ventolin inhaler. Trying to cut back on smoking. Had recent exacerbation on 03/21/22. She came into on 03/21/22 where she was treated with Doxycycline 100 mg bid, Prednisone and had Chest XR completed. No abnormalities on XR. Pt notes she finished recent rx for abx and Prednisone. Since that time she's had a sore throat (mainly with eating) shortly after finishing medication. She was eating dry cereal and her tongue started bleeding. She notes sores/blisters on her tongue. Has used Adipex in the past for weight loss. Past medical history, appointments, medications, allergies reviewed. Previous Medical History PAST MEDICAL HISTORY Diagnosis Date Absence of menstruation at age 36 Asthma Seeing Bipolar disorder ([facility]) Cerebral degeneration ([facility]) Dr. Garrett diagnosed Chronic diarrhea history of Colon polyps COPD (chronic obstructive pulmonary disease) ([facility]) DVT (deep venous thrombosis) ([facility]) right leg- 08/30/2009 after surgery, off coumadin since 2013 Fibromyalgia GERD (gastroesophageal reflux disease) Hyperlipidemia Hypothyroidism Migraine on propanolol Obesity Other osteoporosis Papanicolaou smear of cervix with atypical squamous cells cannot exclude high grade squamous intraepithelial lesion (ASC-H) 2008 Cannot R/O HSIL PMH - PAST MEDICAL HISTORY OF 06/2009 Hepatic flexure adenoma- s/p colectomy Postmenopausal bleeding 2008 Superficial thrombophlebitis Tobacco use 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 Unspecified closed fracture of ankle 12/01/06 right Urge incontinence Previous Surgical History PAST SURGICAL HISTORY Procedure Laterality Date BREAST MILK PROC/STORE/DIST left LEFT HEART CATH,PERCUTANEOUS 03/06/1999 Cardiac cath, L heart- reportedly negative LIG/TRNSXJ FLP TUBE ABDL/VAG APPR UNI/BI 1979' Tubal ligation PAST SURGICAL HISTORY OF 12/01/06 right ankle (has pins and plates) PAST SURGICAL HISTORY OF 1987 cysts removed from b/l ovaries PAST SURGICAL HISTORY OF 06/17/2009 Hand-assisted laparoscopic right colectomy PAST SURGICAL HISTORY OF 06/20/2009 Repair of ileocolic anastomosis and formation of a diverting loop ileostomy. PAST SURGICAL HISTORY OF 10/21/2009 Take down of ileostomy TX ECTOPIC W/O SALPING&/OOPHORECTOMY Ectopic right fallopian tube removed Family History FAMILY HISTORY Problem Relation Age of Onset Alcohol/Drug Father alcohol Arthritis Father Blood Disease Brother hepatitis b Cancer Sister uterus Coronary Artery Disease Mother Coronary Artery Disease Father Coronary Artery Disease Maternal Grandmother Coronary Artery Disease Maternal Grandfather Coronary Artery Disease Paternal Grandmother Coronary Artery Disease Paternal Grandfather Diabetes Paternal Grandmother Hypertension Father Hypertension Brother Hypertension Brother Hypertension Sister Psychiatry Other niece bipolar Patient Allergies ALLERGIES Allergen Reactions Asa [Aspirin] Swelling Bee Sting Swelling, Shortness of Breath Reeves Peppers [Other] GI Upset Citalopram Other: See Comments Excessive sweating Parmasean Cheese [* Vomiting Wellbutrin [Bupropi* Rash Current Medications Current Outpatient Medications on File Prior to Visit Medication Sig doxycycline hyclate (VIBRAMYCIN) 100 mg capsule Take 1 capsule by mouth twice daily for 10 days. predniSONE (DELTASONE) 10 mg tablet Take 4 tabs daily for 3 days, then 2 tabs daily for 3 days, then 1 tab daily for 3 days with food. levothyroxine (SYNTHROID) 50 mcg tablet TAKE 1 TABLET BY MOUTH ONCE DAILY ON EMPTY STOMACH FOR THYROID. gabapentin (NEURONTIN) 300 mg capsule Take 1 capsule by mouth daily at bedtime for 90 days. propranolol (INDERAL) 40 mg tablet TAKE ONE (1) TABLET BY MOUTH ONCE DAILY celecoxib (CELEBREX) 200 mg capsule Take 1 capsule by mouth once daily. omeprazole (PRILOSEC) 40 mg capsule Take 1 capsule by mouth once daily. DULoxetine (CYMBALTA) 30 mg capsule Take 1 capsule by mouth once daily. zolpidem (AMBIEN) 5 mg tablet Take 1 tablet by mouth at bedtime as needed for up to 90 days. albuterol HFA (PROVENTIL HFA, VENTOLIN HFA) 90 mcg/actuation inhaler INHALE TWO(2) PUFFS INTO LUNGS EVERY SIX(6) HOURS NEEDED FOR WHEEZING OR FOR SHORTNESS OF BREATH fluticasone (FLONASE) 50 mcg/actuation nasal spray USE 1 SPRAY IN EACH NOSTRIL ONCE DAILY apixaban (ELIQUIS) 5 mg tab(s) Take 1 tablet by mouth twice daily. diphenhydrAMINE (BANOPHEN) 25 mg capsule Take 1 capsule by mouth every 6 hours as needed. nicotine (NICODERM) 21 mg/24 hr Apply 1 Patch as directed every 24 hours. No current facility-administered medications on file prior to visit. Social History Social History Tobacco Use Smoking status: Every Day Packs/day: 3.00 Years: 44.00 Pack years: 132.00 Types: Cigarettes Smokeless tobacco: Never Tobacco comments: sometimes less d/t headaches. Down to 4 cigarettes per day Vaping Use Vaping Use: Never used Substance Use Topics Alcohol use: No Comment: used to drink heavily up to 2004 Drug use: No EXAM: BP 120/78 (BP Site: Left Arm, BP Position: Sitting, BP Cuff Size: Regular Adult) Pulse 72 Resp 16 Wt 76.2 kg (168 lb) BMI 31.74 kg/m General Appearance: Well appearing, alert, in no acute distress, well-hydrated, well nourished.. Oropharynx: diffuse erythema of tongue and posterior pharynx. Neck: Supple, no adenopathy; thyroid symmetric, normal size, no bruits. Lungs: Lungs clear to auscultation. No wheezing, rhonchi, rales.. Heart: RRR without murmur, gallop, or rubs. No ectopy. Health Maintenance List COVID-19 VACCINE(1) Never done SPIROMETRY Never done ALPHA-1 ANTITRYPSIN DEFICIENCY SCREENING Never done LUNG CANCER SCREENING Never done SHINGRIX VACCINE(1 of 2) Never done PNEUMOCOCCAL(2 - PCV) due on 05/28/2013 PAP TESTING due on 05/09/2021 HPV TESTING due on 05/09/2021 MAMMOGRAM due on 05/10/2021 INFLUENZA(1) due on 11/02/2021 DEPRESSION ASSESSMENT due on 03/04/2022 COLORECTAL CANCER SCREENING due on 05/23/2022 ANNUAL PCP TEAM CHRONIC DISEASE VISIT due on 03/13/2023 LIPID SCREEN due on 04/23/2024 DIABETES SCREEN due on 02/27/2025 DTAP,TDAP,TD(2 - Td or Tdap) due on 10/21/2028 HEPATITIS C SCREENING Completed HIV SCREENING Completed Data reviewed Appointment on 02/27/2022 Component Date Value WBC 02/27/2022 8.49 RBC 02/27/2022 4.39 Hemoglobin 02/27/2022 13.1 Hematocrit 02/27/2022 41.3 MCV 02/27/2022 94.1 MCH 02/27/2022 29.8 MCHC 02/27/2022 31.7 RDW-CV 02/27/2022 13.0 Platelet Count 02/27/2022 183 MPV 02/27/2022 10.0 Neut% 02/27/2022 60.1 Abs Neut 02/27/2022 5.10 Lymph% 02/27/2022 28.3 Abs Lymph 02/27/2022 2.40 [place]% 02/27/2022 7.4 Abs [place] 02/27/2022 0.63 Eosin% 02/27/2022 2.8 Abs Eosin 02/27/2022 0.24 Baso% 02/27/2022 1.3 Abs Baso 02/27/2022 0.11 (A) Immature Gran % 02/27/2022 0.1 Abs Immature Gran 02/27/2022 <0.03 NRBC 02/27/2022 0.0 Absolute nRBC 02/27/2022 <0.01 Diff Type 02/27/2022 Auto Protein, Total 02/27/2022 7.1 Albumin 02/27/2022 4.0 Calcium, Total 02/27/2022 9.3 Bilirubin, Total 02/27/2022 0.2 Alkaline Phosphatase 02/27/2022 121 AST 02/27/2022 19 ALT 02/27/2022 11 Glucose 02/27/2022 83 BUN 02/27/2022 18 Creatinine 02/27/2022 1.08 (A) Sodium 02/27/2022 141 Potassium 02/27/2022 5.5 (A) Chloride 02/27/2022 106 (A) CO2 02/27/2022 27 Anion Gap 02/27/2022 8 (A) Estimated Glomerular Jet* 02/27/2022 58 (A) ASSESSMENT/PLAN: 1. Hypothyroidism, unspecified type - ICD9: 244.9, ICD10: E03.9 (primary diagnosis) - Instructed patient on importance of taking on an empty stomach either first thing in the morning or at bedtime. - continue current dose of Synthroid 0.050 mg 2. Chronic obstructive pulmonary disease, unspecified COPD type (HCC) - ICD9: 496, ICD10: J44.9 Continue current medications. 3. Fibromyalgia - ICD9: 729.1, ICD10: M79.7 Continue current medications. 4. Anxiety with depression - ICD9: 300.4, ICD10: F41.8 5. Insomnia, unspecified type - ICD9: 780.52, ICD10: G47.00 Stable on ambien 6. Soreness of tongue - ICD9: 529.6, ICD10: K14.6 Treat for possible thrush - NYSTATIN 100,000 UNIT/ML ORAL SUSPENSION Follow up in 3 months Medical Decision Making: Problems: Moderate: 2+ stable chronic illnesses Risk: Moderate: Drug management Medical Decision Making Level: 4 - Moderate Edwige dAame MD documented in this encounter [facility] 03-21-2022 Note HNO ID: [id number] Author: Jaida Farnsworth APRN.AUTOMATION TEST DEVELOPER Service: ? Author Type: Nurse Practitioner Type: Progress Notes Filed: 03/21/2022 6:53 PM Note Text: Subjective Cough Associated symptoms include chest pain (burning in chest with coughing) and shortness of breath. Pertinent negatives include no chills. Emily Feliz is a 61 year old female who presents with 10 days of cough, congestion, increased sputum and thickness of sputum. States sputum is dark and sometimes has blood in it. She has not had a fever. Feels short of breath if she is coughing frequently. She has an albuterol inhaler-no use of inhaled steroids. Review of Systems Constitutional: Negative for chills and fever. HENT: Positive for congestion. Respiratory: Positive for cough, hemoptysis, sputum production and shortness of breath. Cardiovascular: Positive for chest pain (burning in chest with coughing). BP 132/80 Pulse 99 Temp 36.2 ?C (97.2 ?F) (Tympanic) Resp 18 Wt 76.7 kg (169 lb) SpO2 99% BMI 31.93 kg/m? PAST MEDICAL HISTORY Diagnosis Date Absence of menstruation at age 36 Asthma Seeing Bipolar disorder (HCC) Cerebral degeneration ([facility]) Dr. Garrett diagnosed Chronic diarrhea history of Colon polyps COPD (chronic obstructive pulmonary disease) ([facility]) DVT (deep venous thrombosis) ([facility]) right leg- 08/30/2009 after surgery, off coumadin since 2013 Fibromyalgia GERD (gastroesophageal reflux disease) Hyperlipidemia Hypothyroidism Migraine on propanolol Obesity Other osteoporosis Papanicolaou smear of cervix with atypical squamous cells cannot exclude high grade squamous intraepithelial lesion (ASC-H) 2008 Cannot R/O HSIL PMH - PAST MEDICAL HISTORY OF 06/2009 Hepatic flexure adenoma- s/p colectomy Postmenopausal bleeding 2009 Superficial thrombophlebitis Tobacco use 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 Unspecified closed fracture of ankle 12/01/06 right Urge incontinence PAST SURGICAL HISTORY Procedure Laterality Date BREAST MILK PROC/STORE/DIST left LEFT HEART CATH,PERCUTANEOUS 03/06/1999 Cardiac cath, L heart- reportedly negative LIG/TRNSXJ FLP TUBE ABDL/VAG APPR UNI/BI Tubal ligation PAST SURGICAL HISTORY OF 12/01/06 right ankle (has pins and plates) PAST SURGICAL HISTORY OF 1987 cysts removed from b/l ovaries PAST SURGICAL HISTORY OF 06/17/2009 Hand-assisted laparoscopic right colectomy PAST SURGICAL HISTORY OF 06/20/2009 Repair of ileocolic anastomosis and formation of a diverting loop ileostomy. PAST SURGICAL HISTORY OF 10/21/2009 Take down of ileostomy TX ECTOPIC W/O SALPINGAND/OOPHORECTOMY Ectopic right fallopian tube removed ALLERGIES Asa [Aspirin], Bee Sting, Reeves Peppers [Other], Citalopram, Parmasean Cheese [Other], and Wellbutrin [Bupropion Hcl] MEDICATIONS levothyroxine (SYNTHROID) 50 mcg tablet TAKE 1 TABLET BY MOUTH ONCE DAILY ON EMPTY STOMACH FOR THYROID. gabapentin (NEURONTIN) 300 mg capsule Take 1 capsule by mouth daily at bedtime for 90 days. propranolol (INDERAL) 40 mg tablet TAKE ONE (1) TABLET BY MOUTH ONCE DAILY celecoxib (CELEBREX) 200 mg capsule Take 1 capsule by mouth once daily. omeprazole (PRILOSEC) 40 mg capsule Take 1 capsule by mouth once daily. DULoxetine (CYMBALTA) 30 mg capsule Take 1 capsule by mouth once daily. zolpidem (AMBIEN) 5 mg tablet Take 1 tablet by mouth at bedtime as needed for up to 90 days. albuterol HFA (PROVENTIL HFA, VENTOLIN HFA) 90 mcg/actuation inhaler INHALE TWO(2) PUFFS INTO LUNGS EVERY SIX(6) HOURS NEEDED FOR WHEEZING OR FOR SHORTNESS OF BREATH fluticasone (FLONASE) 50 mcg/actuation nasal spray USE 1 SPRAY IN EACH NOSTRIL ONCE DAILY apixaban (ELIQUIS) 5 mg tab(s) Take 1 tablet by mouth twice daily. diphenhydrAMINE (BANOPHEN) 25 mg capsule Take 1 capsule by mouth every 6 hours as needed. nicotine (NICODERM) 21 mg/24 hr Apply 1 Patch as directed every 24 hours. FAMILY HISTORY Problem Relation Age of Onset Alcohol/Drug Father alcohol Arthritis Father Blood Disease Brother hepatitis b Cancer Sister uterus Coronary Artery Disease Mother Coronary Artery Disease Father Coronary Artery Disease Maternal Grandmother Coronary Artery Disease Maternal Grandfather Coronary Artery Disease Paternal Grandmother Coronary Artery Disease Paternal Grandfather Diabetes Paternal Grandmother Hypertension Father Hypertension Brother Hypertension Brother Hypertension Sister Psychiatry Other niece bipolar Social History Tobacco Use Smoking status: Every Day Packs/day: 3.00 Years: 44.00 Pack years: 132.00 Types: Cigarettes Smokeless tobacco: Never Tobacco comments: sometimes less d/t headaches. Down to 4 cigarettes per day Vaping Use Vaping Use: Never used Substance Use Topics Alcohol use: No Comment: used to drink heavily up to 2004 Drug use: No Objective Physical Exam Vitals and nursing note re (more content not included)... [facility] 03-21-2022 Note HNO ID: [id number] Author: RT Bobbi(R) Service: ? Author Type: Hand Inserter Operator Type: Progress Notes Filed: 03/21/2022 6:25 PM Note Text: Radiology Service Progress Note PATIENT NAME: Emily Feliz DATE OF SERVICE: March 21, 2022 TIME: 6:18 PM PATIENT IDENTITY VERIFICATION COMPLETED USING TWO (2) IDENTIFIERS: Name and Date of confirmed by patient verbally. FALL SCREENING: Has the patient had 2 falls in the last year or 1 fall with injury or currently using an Ambulatory Assistive Device (Walker, Cane, Wheelchair, Crutches, etc.)? No PATIENT GENDER DATA: Female. status: : No status: NO. PATIENT RELEVANT IMPLANT DATA REVIEWED: Yes RADIOLOGY DEPARTMENT: General X-ray: Exam(s) Completed: Chest X-Ray PERIPHERAL IV DATA: Not applicable SIGNED BY: RT Bobbi(R) March 21, 2022 6:18 PM [facility] 03-21-2022 Instructions Jaida Farnsworth APRN.[facility] - 03/21/2022 6:46 PM EST ASSESSMENT/PLAN: 1. Asthma with COPD with exacerbation (HCC) - ICD9: 493.22, ICD10: J44.1, J45.901 COPD acute excacerbation without status - Continue current meds - Exacerbation treatment of Prednisone burst with long taper- see orders - Avoidance of triggers recommended - XR CHEST 2V FRONTAL/LAT - DOXYCYCLINE HYCLATE 100 MG CAPSULE - PREDNISONE 10 MG TABLET - Follow-up with your PCP in 3-5 days if symptoms have not improved or sooner if symptoms worsen - Discussed red flags and need for immediate medical evaluation if any occur. - Discussed supportive care treatment with fluids, rest and analgesia. - Discussed expected course of illness Jaida Farnsworth APRN.AUTOMATION TEST DEVELOPER Understanding COPD What is COPD? COPD stands for chronic obstructive pulmonary (lung) disease. COPD is a general term used for several lung diseases. The most common diseases in this group are chronic bronchitis and emphysema. Chronic asthma may also be included in this group. While some patients with COPD have only chronic bronchitis or emphysema, most patients have a combination of both. COPD adds to the work of the heart. Diseased lungs may reduce the amount of oxygen that goes to the blood. High blood pressure in blood vessels from the heart to the lungs makes it difficult for the heart to pump. Lung disease can also cause the body to produce too many red blood cells which may make the blood thicker and harder to pump. Patients who have COPD with low oxygen levels may develop an enlarged heart (cor pulmonale). This condition weakens the heart and causes increased shortness of breath and swelling in the legs and feet. Chronic bronchitis Chronic bronchitis is irritation and inflammation (swelling) of the lining in the bronchial tubes (air passages). The irritation causes coughing and an excess amount of mucus in the airways. The swelling makes it difficult to get air in and out of the lungs. The small, hair-like structures on the inside of the airways (called cilia) may be damaged by the irritation. The cilia are then unable to help clean mucus from the airways. Bronchitis is generally considered to be chronic when you have: a productive cough (cough up mucus) and shortness of breath that lasts about 3 months or more each year for 2 or more years in a row. Your doctor may define chronic bronchitis differently. Emphysema Emphysema is the destruction, or breakdown, of the [place] of the alveoli (air sacs) located at the end of the bronchial tubes. The damaged alveoli are not able to exchange oxygen and carbon dioxide between the lungs and the blood. The bronchioles lose their elasticity and collapse when you exhale, trapping air in the lungs. The trapped air keeps fresh air and oxygen from entering the lungs. Who is affected by COPD? Emphysema and chronic bronchitis affect approximately 16 million people in the [place], or close to 11 percent of the population. Symptoms of COPD Shortness of breath Shortness of breath with mild exercise (walking, using the stairs, etc.) Chronic, productive cough (with mucus) A feeling of tightness in the chest Wheezing What causes COPD? The two primary causes of COPD are cigarette smoking and alpha1-antitrypsin (AAT) deficiency. Air pollution and occupational dusts may also contribute to COPD, especially when the person exposed to these substances is a cigarette smoker. Cigarette smoke causes COPD by irritating the airways and creating inflammation that narrows the airways, making it more difficult to breathe. Cigarette smoke also causes the cilia to stop working properly so mucus and trapped particles are not cleaned from the airways. As a result, chronic cough and excess mucus production develop, leading to chronic bronchitis. In some people, chronic bronchitis and infections can lead to destruction of the small airways, or emphysema. AAT deficiency, an inherited disorder, can also lead to emphysema. Alpha antitrypsin (AAT) is a protective material produced in the liver and transported to the lungs to help combat inflammation. When there is not enough of the chemical AAT, the body is no longer protected from an enzyme in the white blood cells. How is COPD diagnosed? To diagnose COPD, the physician needs to know: Do you smoke? Have you had chronic exposure to dust or air pollutants? Do other members of your family have lung disease? Are you short of breath? Do you get short of breath with exercise? Do you have chronic cough and/or wheezing? Do you cough up excess mucus? To help with the diagnosis, the physician will conduct a thorough physical exam which includes: Listening to your lungs and heart Checking your blood pressure and pulse Examining your nose and throat Checking your feet and ankles for swelling Laboratory and other tests Several laboratory and other tests are needed to confirm a diagnosis of COPD. These tests may include: Chest X-ray to look for lung changes that could be caused by COPD Spirometry and pulmonary function tests (PFTs) to determine lung volume and air flow Pulse oximetry to measure the saturation of oxygen in the blood Arterial blood gases (ABGs) to determine the amount of oxygen and carbon dioxide in the blood Exercise testing to determine if the oxygen level in the blood drops during exercise Treatment In the beginning stages of COPD, there is minimal shortness of breath that may be noticed only during exercise. As the disease progresses, shortness of breath may worsen and you may need to wear an oxygen device. To help control other symptoms of COPD, the following treatments and lifestyle changes may be prescribed. Quitting smoking Avoiding cigarette smoke and other irritants Taking medications including: a. bronchodilators b. anti-inflammatory agents c. oxygen d. antibiotics Maintaining a healthy diet Following a structured exercise program Preventing respiratory infections Controlling stress If your COPD progresses, you may be eligible to be evaluated for lung volume reduction surgery or lung transplantation. You may also be eligible to participate in certain clinical trials (research studies). Ask your health care providers about studies being conducted in your hospital. What is the outlook? Although COPD can not be cured, its symptoms can be treated and your quality of life can be improved. Your prognosis or outlook for the future will depend on how well your lungs are functioning, your symptoms, and how well you respond to and follow your treatment plan. documented in this encounter [facility] 03-21-2022 History of Presen t illness Narrative Subjective Cough Associated symptoms include chest pain (burning in chest with coughing) and shortness of breath. Pertinent negatives include no chills. Emily Feliz is a 61 year old female who presents with 10 days of cough, congestion, increased sputum and thickness of sputum. States sputum is dark and sometimes has blood in it. She has not had a fever. Feels short of breath if she is coughing frequently. She has an albuterol inhaler-no use of inhaled steroids. Review of Systems Constitutional: Negative for chills and fever. HENT: Positive for congestion. Respiratory: Positive for cough, hemoptysis, sputum production and shortness of breath. Cardiovascular: Positive for chest pain (burning in chest with coughing). BP 132/80 Pulse 99 Temp 36.2 C (97.2 F) (Tympanic) Resp 18 Wt 76.7 kg (169 lb) SpO2 99% BMI 31.93 kg/m PAST MEDICAL HISTORY Diagnosis Date Absence of menstruation at age 36 Asthma Seeing Bipolar disorder (HCC) Cerebral degeneration (HCC) Dr. Baddour diagnosed Chronic diarrhea history of Colon polyps COPD (chronic obstructive pulmonary disease) (HCC) DVT (deep venous thrombosis) (HCC) right leg- 08/30/2009 after surgery, off coumadin since 2013 Fibromyalgia GERD (gastroesophageal reflux disease) Hyperlipidemia Hypothyroidism Migraine on propanolol Obesity Other osteoporosis Papanicolaou smear of cervix with atypical squamous cells cannot exclude high grade squamous intraepithelial lesion (ASC-H) 2008 Cannot R/O HSIL PMH - PAST MEDICAL HISTORY OF 06/2009 Hepatic flexure adenoma- s/p colectomy Postmenopausal bleeding 2008 Superficial thrombophlebitis Tobacco use 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 Unspecified closed fracture of ankle 12/01/06 right Urge incontinence PAST SURGICAL HISTORY Procedure Laterality Date BREAST MILK PROC/STORE/DIST left LEFT HEART CATH,PERCUTANEOUS 03/06/1999 Cardiac cath, L heart- reportedly negative LIG/TRNSXJ FLP TUBE ABDL/VAG APPR UNI/BI Tubal ligation PAST SURGICAL HISTORY OF 12/01/06 right ankle (has pins and plates) PAST SURGICAL HISTORY OF 1987 cysts removed from b/l ovaries PAST SURGICAL HISTORY OF 06/17/2009 Hand-assisted laparoscopic right colectomy PAST SURGICAL HISTORY OF 06/20/2009 Repair of ileocolic anastomosis and formation of a diverting loop ileostomy. PAST SURGICAL HISTORY OF 10/21/2009 Take down of ileostomy TX ECTOPIC W/O SALPING&/OOPHORECTOMY Ectopic right fallopian tube removed ALLERGIES Asa [Aspirin], Bee Sting, Reeves Peppers [Other], Citalopram, Parmasean Cheese [Other], and Wellbutrin [Bupropion Hcl] MEDICATIONS levothyroxine (SYNTHROID) 50 mcg tablet TAKE 1 TABLET BY MOUTH ONCE DAILY ON EMPTY STOMACH FOR THYROID. gabapentin (NEURONTIN) 300 mg capsule Take 1 capsule by mouth daily at bedtime for 90 days. propranolol (INDERAL) 40 mg tablet TAKE ONE (1) TABLET BY MOUTH ONCE DAILY celecoxib (CELEBREX) 200 mg capsule Take 1 capsule by mouth once daily. omeprazole (PRILOSEC) 40 mg capsule Take 1 capsule by mouth once daily. DULoxetine (CYMBALTA) 30 mg capsule Take 1 capsule by mouth once daily. zolpidem (AMBIEN) 5 mg tablet Take 1 tablet by mouth at bedtime as needed for up to 90 days. albuterol HFA (PROVENTIL HFA, VENTOLIN HFA) 90 mcg/actuation inhaler INHALE TWO(2) PUFFS INTO LUNGS EVERY SIX(6) HOURS NEEDED FOR WHEEZING OR FOR SHORTNESS OF BREATH fluticasone (FLONASE) 50 mcg/actuation nasal spray USE 1 SPRAY IN EACH NOSTRIL ONCE DAILY apixaban (ELIQUIS) 5 mg tab(s) Take 1 tablet by mouth twice daily. diphenhydrAMINE (BANOPHEN) 25 mg capsule Take 1 capsule by mouth every 6 hours as needed. nicotine (NICODERM) 21 mg/24 hr Apply 1 Patch as directed every 24 hours. FAMILY HISTORY Problem Relation Age of Onset Alcohol/Drug Father alcohol Arthritis Father Blood Disease Brother hepatitis b Cancer Sister uterus Coronary Artery Disease Mother Coronary Artery Disease Father Coronary Artery Disease Maternal Grandmother Coronary Artery Disease Maternal Grandfather Coronary Artery Disease Paternal Grandmother Coronary Artery Disease Paternal Grandfather Diabetes Paternal Grandmother Hypertension Father Hypertension Brother Hypertension Brother Hypertension Sister Psychiatry Other niece bipolar Social History Tobacco Use Smoking status: Every Day Packs/day: 3.00 Years: 44.00 Pack years: 132.00 Types: Cigarettes Smokeless tobacco: Never Tobacco comments: sometimes less d/t headaches. Down to 4 cigarettes per day Vaping Use Vaping Use: Never used Substance Use Topics Alcohol use: No Comment: used to drink heavily up to 2004 Drug use: No Objective Physical Exam Vitals and nursing note reviewed. Constitutional: Appearance: Normal appearance. HENT: Mouth/Throat: Pharynx: Uvula midline. Cardiovascular: Rate and Rhythm: Normal rate and regular rhythm. Heart sounds: Normal heart sounds. Pulmonary: Effort: Pulmonary effort is normal. No respiratory distress. Breath sounds: Normal breath sounds. No wheezing or rales. Comments: Frequent productive cough noted on exam. Musculoskeletal: Cervical back: Neck supple. Lymphadenopathy: Cervical: No cervical adenopathy. Skin: General: Skin is warm and dry. Findings: No erythema or rash. Neurological: Mental Status: She is alert. ASSESSMENT/PLAN: 1. Asthma with COPD with exacerbation (HCC) - ICD9: 493.22, ICD10: J44.1, J45.901 COPD acute excacerbation without status - Continue current meds - Exacerbation treatment of Prednisone burst with long taper- see orders - Avoidance of triggers recommended - XR CHEST 2V FRONTAL/LAT - DOXYCYCLINE HYCLATE 100 MG CAPSULE - PREDNISONE 10 MG TABLET - Follow-up with your PCP in 3-5 days if symptoms have not improved or sooner if symptoms worsen - Discussed red flags and need for immediate medical evaluation if any occur. - Discussed supportive care treatment with fluids, rest and analgesia. - Discussed expected course of illness Jaida Farnsworth APRN.AUTOMATION TEST DEVELOPER documented in this encounter [facility] 03-13-2022 Note HNO ID: [id number] Author: Edwige Adame MD Service: ? Author Type: Physician Type: Progress Notes Filed: 03/13/2022 3:22 PM Note Text: Chief Complaint Patient presents with: Illness HPI: This Team Access Model visit is a virtual/phone encounter. It required patient-provider interaction for the medical decision making as documented below. Patient was offered a virtual/telemedicine appointment in lieu of an office visit due to recommendations to reduce patient exposure to COVID-19. Patient is aware of limitations of performing the visit without a face to face visit in the office setting and agrees. Pt c/o nasal congestion, chest congestion, sore throat, henna ear pain, coughing, sweating, checking temp no fevers, fatigue, mild headache in the AM when blowing nose or coughing x 3 days. Has been taking Mucinex. Her daughter was sick, pt tested for covid and test was negative. Past medical history, appointments, medications, allergies reviewed. Previous Medical History PAST MEDICAL HISTORY Diagnosis Date Absence of menstruation at age 36 Asthma Seeing Bipolar disorder ([facility]) Cerebral degeneration ([facility]) Dr. Garrett diagnosed Chronic diarrhea history of Colon polyps COPD (chronic obstructive pulmonary disease) ([facility]) DVT (deep venous thrombosis) ([facility]) right leg- 08/30/2009 after surgery, off coumadin since 2013 Fibromyalgia GERD (gastroesophageal reflux disease) Hyperlipidemia Hypothyroidism Migraine on propanolol Obesity Other osteoporosis Papanicolaou smear of cervix with atypical squamous cells cannot exclude high grade squamous intraepithelial lesion (ASC-H) 2008 Cannot R/O HSIL PMH - PAST MEDICAL HISTORY OF 06/2009 Hepatic flexure adenoma- s/p colectomy Postmenopausal bleeding 2009 Superficial thrombophlebitis Tobacco use 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 Unspecified closed fracture of ankle 12/01/06 right Urge incontinence Previous Surgical History PAST SURGICAL HISTORY Procedure Laterality Date BREAST MILK PROC/STORE/DIST left LEFT HEART CATH,PERCUTANEOUS 03/06/1999 Cardiac cath, L heart- reportedly negative LIG/TRNSXJ FLP TUBE ABDL/VAG APPR UNI/BI Tubal ligation PAST SURGICAL HISTORY OF 12/01/06 right ankle (has pins and plates) PAST SURGICAL HISTORY OF 1987 cysts removed from b/l ovaries PAST SURGICAL HISTORY OF 06/17/2009 Hand-assisted laparoscopic right colectomy PAST SURGICAL HISTORY OF 06/20/2009 Repair of ileocolic anastomosis and formation of a diverting loop ileostomy. PAST SURGICAL HISTORY OF 10/21/2009 Take down of ileostomy [place] ECTOPIC W/O SALPINGAND/OOPHORECTOMY Ectopic right fallopian tube removed Family History FAMILY HISTORY Problem Relation Age of Onset Alcohol/Drug Father alcohol Arthritis Father Blood Disease Brother hepatitis b Cancer Sister uterus Coronary Artery Disease Mother Coronary Artery Disease Father Coronary Artery Disease Maternal Grandmother Coronary Artery Disease Maternal Grandfather Coronary Artery Disease Paternal Grandmother Coronary Artery Disease Paternal Grandfather Diabetes Paternal Grandmother Hypertension Father Hypertension Brother Hypertension Brother Hypertension Sister Psychiatry Other niece bipolar Patient Allergies ALLERGIES Allergen Reactions Asa [Aspirin] Swelling Bee Sting Swelling, Shortness of Breath Reeves Peppers [Other] GI Upset Citalopram Other: See Comments Excessive sweating Parmasean Cheese [* Vomiting Wellbutrin [Bupropi* Rash Current Medications Current Outpatient Medications on File Prior to Visit Medication Sig levothyroxine (SYNTHROID) 50 mcg tablet TAKE 1 TABLET BY MOUTH ONCE DAILY ON EMPTY STOMACH FOR THYROID. gabapentin (NEURONTIN) 300 mg capsule Take 1 capsule by mouth daily at bedtime for 90 days. propranolol (INDERAL) 40 mg tablet TAKE ONE (1) TABLET BY MOUTH ONCE DAILY celecoxib (CELEBREX) 200 mg capsule Take 1 capsule by mouth once daily. omeprazole (PRILOSEC) 40 mg capsule Take 1 capsule by mouth once daily. DULoxetine (CYMBALTA) 30 mg capsule Take 1 capsule by mouth once daily. zolpidem (AMBIEN) 5 mg tablet Take 1 tablet by mouth at bedtime as needed for up to 90 days. albuterol HFA (PROVENTIL HFA, VENTOLIN HFA) 90 mcg/actuation inhaler INHALE TWO(2) PUFFS INTO LUNGS EVERY SIX(6) HOURS NEEDED FOR WHEEZING OR FOR SHORTNESS OF BREATH fluticasone (FLONASE) 50 mcg/actuation nasal spray USE 1 SPRAY IN EACH NOSTRIL ONCE DAILY apixaban (ELIQUIS) 5 mg tab(s) Take 1 tablet by mouth twice daily. diphenhydrAMINE (BANOPHEN) 25 mg capsule Take 1 capsule by mouth every 6 hours as needed. nicotine (NICODERM) 21 mg/24 hr Apply 1 Patch as directed every 24 hours. No current facility-administered medications on file prior to visit. Social History Social History Tobacco Use Smoking status: Every Day Packs/day: 3.00 Years: 44.00 Pack years: 132. (more content not included)... [facility] 03-13-2022 History of Presen t illness Narrative Chief Complaint Patient presents with: Illness HPI: This Team Access Model visit is a virtual/phone encounter. It required patient-provider interaction for the medical decision making as documented below. Patient was offered a virtual/telemedicine appointment in lieu of an office visit due to recommendations to reduce patient exposure to COVID-19. Patient is aware of limitations of performing the visit without a face to face visit in the office setting and agrees. Pt c/o nasal congestion, chest congestion, sore throat, henna ear pain, coughing, sweating, checking temp no fevers, fatigue, mild headache in the AM when blowing nose or coughing x 3 days. Has been taking Mucinex. Her daughter was sick, pt tested for covid and test was negative. Past medical history, appointments, medications, allergies reviewed. Previous Medical History PAST MEDICAL HISTORY Diagnosis Date Absence of menstruation at age 36 Asthma Seeing Bipolar disorder (HCC) Cerebral degeneration ([facility]) Dr. Garrett diagnosed Chronic diarrhea history of Colon polyps COPD (chronic obstructive pulmonary disease) ([facility]) DVT (deep venous thrombosis) ([facility]) right leg- 08/30/2009 after surgery, off coumadin since 2013 Fibromyalgia GERD (gastroesophageal reflux disease) Hyperlipidemia Hypothyroidism Migraine on propanolol Obesity Other osteoporosis Papanicolaou smear of cervix with atypical squamous cells cannot exclude high grade squamous intraepithelial lesion (ASC-H) 2008 Cannot R/O HSIL PMH - PAST MEDICAL HISTORY OF 06/2009 Hepatic flexure adenoma- s/p colectomy Postmenopausal bleeding 2008 Superficial thrombophlebitis Tobacco use 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 Unspecified closed fracture of ankle 12/01/06 right Urge incontinence Previous Surgical History PAST SURGICAL HISTORY Procedure Laterality Date BREAST MILK PROC/STORE/DIST left LEFT HEART CATH,PERCUTANEOUS 03/06/1999 Cardiac cath, L heart- reportedly negative LIG/TRNSXJ FLP TUBE ABDL/VAG APPR UNI/BI Tubal ligation PAST SURGICAL HISTORY OF 12/01/06 right ankle (has pins and plates) PAST SURGICAL HISTORY OF 1987 cysts removed from b/l ovaries PAST SURGICAL HISTORY OF 06/17/2009 Hand-assisted laparoscopic right colectomy PAST SURGICAL HISTORY OF 06/20/2009 Repair of ileocolic anastomosis and formation of a diverting loop ileostomy. PAST SURGICAL HISTORY OF 10/21/2009 Take down of ileostomy TX ECTOPIC W/O SALPING&/OOPHORECTOMY Ectopic right fallopian tube removed Family History FAMILY HISTORY Problem Relation Age of Onset Alcohol/Drug Father alcohol Arthritis Father Blood Disease Brother hepatitis b Cancer Sister uterus Coronary Artery Disease Mother Coronary Artery Disease Father Coronary Artery Disease Maternal Grandmother Coronary Artery Disease Maternal Grandfather Coronary Artery Disease Paternal Grandmother Coronary Artery Disease Paternal Grandfather Diabetes Paternal Grandmother Hypertension Father Hypertension Brother Hypertension Brother Hypertension Sister Psychiatry Other niece bipolar Patient Allergies ALLERGIES Allergen Reactions Asa [Aspirin] Swelling Bee Sting Swelling, Shortness of Breath Reeves Peppers [Other] GI Upset Citalopram Other: See Comments Excessive sweating Parmasean Cheese [* Vomiting Wellbutrin [Bupropi* Rash Current Medications Current Outpatient Medications on File Prior to Visit Medication Sig levothyroxine (SYNTHROID) 50 mcg tablet TAKE 1 TABLET BY MOUTH ONCE DAILY ON EMPTY STOMACH FOR THYROID. gabapentin (NEURONTIN) 300 mg capsule Take 1 capsule by mouth daily at bedtime for 90 days. propranolol (INDERAL) 40 mg tablet TAKE ONE (1) TABLET BY MOUTH ONCE DAILY celecoxib (CELEBREX) 200 mg capsule Take 1 capsule by mouth once daily. omeprazole (PRILOSEC) 40 mg capsule Take 1 capsule by mouth once daily. DULoxetine (CYMBALTA) 30 mg capsule Take 1 capsule by mouth once daily. zolpidem (AMBIEN) 5 mg tablet Take 1 tablet by mouth at bedtime as needed for up to 90 days. albuterol HFA (PROVENTIL HFA, VENTOLIN HFA) 90 mcg/actuation inhaler INHALE TWO(2) PUFFS INTO LUNGS EVERY SIX(6) HOURS NEEDED FOR WHEEZING OR FOR SHORTNESS OF BREATH fluticasone (FLONASE) 50 mcg/actuation nasal spray USE 1 SPRAY IN EACH NOSTRIL ONCE DAILY apixaban (ELIQUIS) 5 mg tab(s) Take 1 tablet by mouth twice daily. diphenhydrAMINE (BANOPHEN) 25 mg capsule Take 1 capsule by mouth every 6 hours as needed. nicotine (NICODERM) 21 mg/24 hr Apply 1 Patch as directed every 24 hours. No current facility-administered medications on file prior to visit. Social History Social History Tobacco Use Smoking status: Every Day Packs/day: 3.00 Years: 44.00 Pack years: 132.00 Types: Cigarettes Smokeless tobacco: Never Tobacco comments: sometimes less d/t headaches. Down to 4 cigarettes per day Vaping Use Vaping Use: Never used Substance Use Topics Alcohol use: No Comment: used to drink heavily up to 2004 Drug use: No EXAM: There were no vitals taken for this visit. Phone exam: mild congestion, no distress noted Health Maintenance List COVID-19 VACCINE(1) Never done SPIROMETRY Never done ALPHA-1 ANTITRYPSIN DEFICIENCY SCREENING Never done LUNG CANCER SCREENING Never done SHINGRIX VACCINE(1 of 2) Never done PNEUMOCOCCAL(2 - PCV) due on 05/28/2013 PAP TESTING due on 05/09/2021 HPV TESTING due on 05/09/2021 MAMMOGRAM due on 05/10/2021 INFLUENZA(1) due on 11/02/2021 DEPRESSION ASSESSMENT due on 03/04/2022 COLORECTAL CANCER SCREENING due on 05/23/2022 ANNUAL PCP TEAM CHRONIC DISEASE VISIT due on 02/27/2023 LIPID SCREEN due on 04/23/2024 DIABETES SCREEN due on 02/27/2025 DTAP,TDAP,TD(2 - Td or Tdap) due on 10/21/2028 HEPATITIS C SCREENING Completed HIV SCREENING Completed Data reviewed none ASSESSMENT/PLAN: 1. Viral URI - ICD9: 465.9, ICD10: J06.9 - Discussed viral etiology and rationale for treatment. - Symptomatic treatment with prn analgesia - Supportive care with fluids and rest Call if not improving in 5-7 days I agree with the Chief Complaint, ROS, and Past Histories independently gathered by the clinical intranet support and the remaining scribed note accurately describes my personal service to the patient. 5-10 minutes of time spent on phone call Edwige Adame MD The documentation for this note was completed by Pebbles Michel Ma acting as scribe for Edwige Adame MD. March 13, 2022 3:04 PM. Pebbles Michel Ma documented in this encounter [facility] 03-13-2022 Miscellaneous Notes Patient called and provider message reviewed. Patient agreed to phone visit. Changed. Anna Anaya RN Message left pt to call back. Provider would like pt to do a phone visit due to her sx of sore throat, chest and nasal congestion. Pebbles Michel Ma documented in this encounter [facility] 03-01-2022 Miscellaneous Notes Patient notified of recommendations from AUTOMATION TEST DEVELOPER, verbalizes understanding of instructions. Elise Calderon LPN Can you please let the patient know that I would recommend that she go ahead and make an appointment with general surgery for further evaluation. She may need a biopsy. Thank you. Jim Meneses APRN.AUTOMATION TEST DEVELOPER Patient notified of results, verbalizes understanding of instructions. Pt stated no change with taking steroids. Neck still swelled. Elise Calderon LPN Can you please call the patient and let her know that I reviewed her lab results. Labs are relatively normal, no signs of infection. Decreased kidney function was noted. I would recommend that she drink plenty of water throughout the day. Increase potassium was noted. I would like to recheck this within the next 2 weeks. Can you please asked the patient how the swelling in her neck is? Has the steroids helped? Jim Meneses APRN.MARY documented in this encounter [facility] 02-27-2022 Note HNO ID: [id number] Author: Jim Meneses APRN.CNP Service: ? Author Type: Nurse Practitioner Type: Progress Notes Filed: 02/27/2022 12:15 PM Note Text: This is a 61 year old female who presents today with: Patient presents with: Follow Up: Left side face swelling HISTORY OF PRESENT ILLNESS: Emily Feliz is a 61 year old female. Patient presents with: Follow Up: Left side face swelling Here in the office for urgent follow up for neck lump. Was seen in [facility] on 02/22/2022. Refers that it started about 4 days prior to visit which seemed to progress quickly. Refers that nodule has gotten larger and harder. Tender at times, has been applying cool compress to the area. No recent illness. No fever or chills. At times has noticed right ear pain. US Showed: Area of palpable concern in the right neck corresponds to 2 mildly enlarged lymph nodes measuring 2.3 x 1.4 x 1.3 cm and 2.4 x 1.3 x 1.4 cm Smoking 10 cigarettes daily. Has had a chest CTA in 2020, which was normal. PAST MEDICAL HISTORY: PAST MEDICAL HISTORY Diagnosis Date Absence of menstruation at age 36 Asthma Seeing Bipolar disorder (HCC) Cerebral degeneration (HCC) Dr. Garrett diagnosed Chronic diarrhea history of Colon polyps COPD (chronic obstructive pulmonary disease) (HCC) DVT (deep venous thrombosis) (HCC) right leg- 08/30/2009 after surgery, off coumadin since 2013 Fibromyalgia GERD (gastroesophageal reflux disease) Hyperlipidemia Hypothyroidism Migraine on propanolol Obesity Other osteoporosis Papanicolaou smear of cervix with atypical squamous cells cannot exclude high grade squamous intraepithelial lesion (ASC-H) 2008 Cannot R/O HSIL PMH - PAST MEDICAL HISTORY OF 06/2009 Hepatic flexure adenoma- s/p colectomy Postmenopausal bleeding 2008 Superficial thrombophlebitis Tobacco use 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 Unspecified closed fracture of ankle 12/01/06 right Urge incontinence PAST SURGICAL HISTORY Procedure Laterality Date BREAST MILK PROC/STORE/DIST left LEFT HEART CATH,PERCUTANEOUS 03/06/1999 Cardiac cath, L heart- reportedly negative LIG/TRNSXJ FLP TUBE ABDL/VAG APPR UNI/BI Tubal ligation PAST SURGICAL HISTORY OF 12/01/06 right ankle (has pins and plates) PAST SURGICAL HISTORY OF 1987 cysts removed from b/l ovaries PAST SURGICAL HISTORY OF 06/17/2009 Hand-assisted laparoscopic right colectomy PAST SURGICAL HISTORY OF 06/20/2009 Repair of ileocolic anastomosis and formation of a diverting loop ileostomy. PAST SURGICAL HISTORY OF 10/21/2009 Take down of ileostomy TX ECTOPIC W/O SALPINGAND/OOPHORECTOMY Ectopic right fallopian tube removed ALLERGIES Asa [Aspirin], Bee Sting, Reeves Peppers [Other], Citalopram, Parmasean Cheese [Other], and Wellbutrin [Bupropion Hcl] MEDICATIONS Current Outpatient Medications Medication Sig levothyroxine (SYNTHROID) 50 mcg tablet TAKE 1 TABLET BY MOUTH ONCE DAILY ON EMPTY STOMACH FOR THYROID. gabapentin (NEURONTIN) 300 mg capsule Take 1 capsule by mouth daily at bedtime for 90 days. propranolol (INDERAL) 40 mg tablet TAKE ONE (1) TABLET BY MOUTH ONCE DAILY celecoxib (CELEBREX) 200 mg capsule Take 1 capsule by mouth once daily. omeprazole (PRILOSEC) 40 mg capsule Take 1 capsule by mouth once daily. DULoxetine (CYMBALTA) 30 mg capsule Take 1 capsule by mouth once daily. zolpidem (AMBIEN) 5 mg tablet Take 1 tablet by mouth at bedtime as needed for up to 90 days. albuterol HFA (PROVENTIL HFA, VENTOLIN HFA) 90 mcg/actuation inhaler INHALE TWO(2) PUFFS INTO LUNGS EVERY SIX(6) HOURS NEEDED FOR WHEEZING OR FOR SHORTNESS OF BREATH fluticasone (FLONASE) 50 mcg/actuation nasal spray USE 1 SPRAY IN EACH NOSTRIL ONCE DAILY apixaban (ELIQUIS) 5 mg tab(s) Take 1 tablet by mouth twice daily. diphenhydrAMINE (BANOPHEN) 25 mg capsule Take 1 capsule by mouth every 6 hours as needed. nicotine (NICODERM) 21 mg/24 hr Apply 1 Patch as directed every 24 hours. No current facility-administered medications for this visit. FAMILY HISTORY Problem Relation Age of Onset Alcohol/Drug Father alcohol Arthritis Father Blood Disease Brother hepatitis b Cancer Sister uterus Coronary Artery Disease Mother Coronary Artery Disease Father Coronary Artery Disease Maternal Grandmother Coronary Artery Disease Maternal Grandfather Coronary Artery Disease Paternal Grandmother Coronary Artery Disease Paternal Grandfather Diabetes Paternal Grandmother Hypertension Father Hypertension Brother Hypertension Brother Hypertension Sister Psychiatry Other niece bipolar Social History Tobacco Use Smoking status: Every Day Packs/day: 3.00 Years: 44.00 Pack years: 132.00 Types: Cigarettes Smokeless tobacco: Never Tobacco comments: sometimes less d/t headaches. Down to 4 cigarettes per day Vaping Use Vaping Use: Never used Substance Use Topics Alcohol use (more content not included)... [facility] 02-27-2022 Instructions Jim Meneses APRN.CNP - 02/27/2022 11:41 AM EST Get labs completed Start prednisone 40 mg daily for 5 days. May continue with cold compress Follow up pending test results. If symptoms do not improve may need consult with general surgery. documented in this encounter [facility] 02-27-2022 History of Presen t illness Narrative This is a 61 year old female who presents today with: Patient presents with: Follow Up: Left side face swelling HISTORY OF PRESENT ILLNESS: Emily Feliz is a 61 year old female. Patient presents with: Follow Up: Left side face swelling Here in the office for urgent follow up for neck lump. Was seen in [facility] on 02/22/2022. Refers that it started about 4 days prior to visit which seemed to progress quickly. Refers that nodule has gotten larger and harder. Tender at times, has been applying cool compress to the area. No recent illness. No fever or chills. At times has noticed right ear pain. US Showed: Area of palpable concern in the right neck corresponds to 2 mildly enlarged lymph nodes measuring 2.3 x 1.4 x 1.3 cm and 2.4 x 1.3 x 1.4 cm Smoking 10 cigarettes daily. Has had a chest CTA in 2020, which was normal. PAST MEDICAL HISTORY: PAST MEDICAL HISTORY Diagnosis Date Absence of menstruation at age 36 Asthma Seeing Bipolar disorder (HCC) Cerebral degeneration (HCC) Dr. Garrett diagnosed Chronic diarrhea history of Colon polyps COPD (chronic obstructive pulmonary disease) (HCC) DVT (deep venous thrombosis) (HCC) right leg- 08/30/2009 after surgery, off coumadin since 2013 Fibromyalgia GERD (gastroesophageal reflux disease) Hyperlipidemia Hypothyroidism Migraine on propanolol Obesity Other osteoporosis Papanicolaou smear of cervix with atypical squamous cells cannot exclude high grade squamous intraepithelial lesion (ASC-H) 2008 Cannot R/O HSIL PMH - PAST MEDICAL HISTORY OF 06/2009 Hepatic flexure adenoma- s/p colectomy Postmenopausal bleeding 2008 Superficial thrombophlebitis Tobacco use 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 Unspecified closed fracture of ankle 12/01/06 right Urge incontinence PAST SURGICAL HISTORY Procedure Laterality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 SURGICAL HISTORY OF 06/20/2009 Repair of ileocolic anastomosis and formation of a diverting loop ileostomy. PAST SURGICAL HISTORY OF 10/21/2009 Take down of ileostomy TX ECTOPIC W/O SALPING&/OOPHORECTOMY Ectopic right fallopian tube removed Family History FAMILY HISTORY Problem Relation Age of Onset Alcohol/Drug Father alcohol Arthritis Father Blood Disease Brother hepatitis b Cancer Sister uterus Coronary Artery Disease Mother Coronary Artery Disease Father Coronary Artery Disease Maternal Grandmother Coronary Artery Disease Maternal Grandfather Coronary Artery Disease Paternal Grandmother Coronary Artery Disease Paternal Grandfather Diabetes Paternal Grandmother Hypertension Father Hypertension Brother Hypertension Brother Hypertension Sister Psychiatry Other niece bipolar Patient Allergies ALLERGIES Allergen Reactions Asa [Aspirin] Swelling Bee Sting Swelling, Shortness of Breath Reeves Peppers [Other] GI Upset Citalopram Other: See Comments Excessive sweating Parmasean Cheese [* Vomiting Wellbutrin [Bupropi* Rash Current Medications Current Outpatient Medications on File Prior to Visit Medication Sig zolpidem (AMBIEN) 5 mg tablet Take 1 tablet by mouth at bedtime as needed for up to 90 days. celecoxib (CELEBREX) 200 mg capsule Take 1 capsule by mouth once daily. diphenhydrAMINE (BANOPHEN) 25 mg capsule Take 1 capsule by mouth every 6 hours as needed. levothyroxine (SYNTHROID) 50 mcg tablet TAKE 1 TABLET BY MOUTH ONCE DAILY ON EMPTY STOMACH FOR THYROID. propranolol (INDERAL) 40 mg tablet TAKE ONE (1) TABLET BY MOUTH ONCE DAILY gabapentin (NEURONTIN) 300 mg capsule Take 1 capsule by mouth daily at bedtime for 90 days. omeprazole (PRILOSEC) 40 mg capsule Take 1 capsule by mouth once daily. apixaban (ELIQUIS) 5 mg tab(s) Take 1 tablet by mouth twice daily. DULoxetine (CYMBALTA) 30 mg capsule TAKE 1 CAPSULE BY MOUTH ONCE DAILY nicotine (NICODERM) 21 mg/24 hr Apply 1 Patch as directed every 24 hours. albuterol HFA (PROVENTIL HFA, VENTOLIN HFA) 90 mcg/actuation inhaler INHALE TWO(2) PUFFS INTO LUNGS EVERY SIX(6) HOURS NEEDED FOR WHEEZING OR FOR SHORTNESS OF BREATH fluticasone (FLONASE) 50 mcg/actuation nasal spray USE 1 SPRAY IN EACH NOSTRIL ONCE DAILY No current facility-administered medications on file prior to visit. Social History Social History Tobacco Use Smoking status: Every Day Packs/day: 3.00 Years: 44.00 Pack years: 132.00 Types: Cigarettes Smokeless tobacco: Never Tobacco comments: sometimes less d/t headaches. Down to 4 cigarettes per day Vaping Use Vaping Use: Never used Substance Use Topics Alcohol use: No Comment: used to drink heavily up to 2004 Drug use: No EXAM: BP 120/78 Pulse 74 Resp 16 Wt 69.4 kg (153 lb) BMI 28.91 kg/m General Appearance: Well appearing, alert, in no acute distress, well-hydrated, well nourished. Lungs: Lungs clear to auscultation. No wheezing, rhonchi, rales.. Heart: RRR without murmur, gallop, or rubs. No ectopy. Extremities: right arm; no swelling, no pain on palpation, good ROM. Health Maintenance List COVID-19 VACCINE(1) Never done SPIROMETRY Never done ALPHA-1 ANTITRYPSIN DEFICIENCY SCREENING Never done LUNG CANCER SCREENING Never done SHINGRIX VACCINE(1 of 2) Never done PNEUMOCOCCAL(2 - PCV) due on 05/28/2013 DEPRESSION ASSESSMENT Never done PAP TESTING due on 05/09/2021 HPV TESTING due on 05/09/2021 MAMMOGRAM due on 05/10/2021 INFLUENZA(1) due on 11/02/2021 COLORECTAL CANCER SCREENING due on 05/23/2022 ANNUAL PCP TEAM CHRONIC DISEASE VISIT due on 11/29/2022 DIABETES SCREEN due on 01/05/2024 LIPID SCREEN due on 04/23/2024 DTAP,TDAP,TD(2 - Td or Tdap) due on 10/21/2028 HEPATITIS C SCREENING Completed HIV SCREENING Completed Data reviewed Weight graph ASSESSMENT/PLAN: 1. Hypothyroidism, unspecified type - ICD9: 244.9, ICD10: E03.9 (primary diagnosis) - Instructed patient on importance of taking on an empty stomach either first thing in the morning or at bedtime. Continue current medications. 2. Venous thrombosis - ICD9: 453.9, ICD10: I82.90 - APIXABAN 5 MG TABLET 3. Intractable headache, unspecified chronicity pattern, unspecified headache type - ICD9: 784.0, ICD10: R51.9 Controlled Continue current medications. 4. Fibromyalgia - ICD9: 729.1, ICD10: M79.7 Controlled Continue current medications. 5. Hyperlipidemia, unspecified hyperlipidemia type - ICD9: 272.4, ICD10: E78.5 - to be determined upon return of lab results - Continue current medication. - Encouraged following a low fat, low cholesterol diet. - Discussed the benefits of regular aerobic exercise and weight loss. 6. Chronic obstructive pulmonary disease, unspecified COPD type (HCC) - ICD9: 496, ICD10: J44.9 Continue current medications. 7. Tobacco use disorder - ICD9: 305.1, ICD10: F17.200 - Cessation encouraged. - Physiologic and physical aspects of tobacco addiction as well as strategies for quitting were discussed. - Counseling was given focusing on the harmful effects of this addiction especially given the patient's medical condition(s) which will be worsened because of the chemicals in tobacco. - Counseling was given 3-4 minutes. 8. Gastroesophageal reflux disease without esophagitis - ICD9: 530.81, ICD10: K21.9 Controlled Continue current medications. 9. Chronic insomnia - ICD9: 780.52, ICD10: F51.04 Continue current medications. Follow up in 3 months. Will notify of lab results. I agree with the Chief Complaint, ROS, and Past Histories independently gathered by the clinical intranet support and the remaining scribed note accurately describes my personal service to the patient. Medical Decision Making: Problems: Moderate: 2+ stable chronic illnesses Data: Unique test(s) ordered: 3+ Risk: Moderate: Drug management Medical Decision Making Level: 4 - Moderate Edwige Adame MD The documentation for this note was completed by Pebbles Michel Ma acting as scribe for Edwige Adame MD. January 04, 2022 11:27 AM. Pebbles Michel Ma documented in this encounter [facility] 11-29-2021 History of Presen t illness Narrative Chief Complaint Patient presents with: Follow Up HPI Emily Feliz is a 61 year old female who presents here today for follow up. Pt requested a follow up visit with PCP as soon as possible. Cancelled her 3 month f/u scheduled in December. Pt here to follow up from [facility] yesterday 11/28/21 for sore throat. Also here to f/u from visit on 11/03/21 due to back pain. Pt denies any fevers, congestion, cough. She was tested for strep which was negative. She was started on nystatin mouth wash to treat possible thrush. Pt does uses an albuterol inhaler and does smoke about half ppd. Back - Ongoing back pain x 2 weeks. Seen in [facility] with XR completed showing DDD. Pt since that time reports back pain that's most bothersome at night or in the morning. States that she's really stiff in the morning. Denies any injury. Pain located mid lumbar, radiating up to her mid back, right side. Pain a 5/10, described as a stabbing pain and pressure like. Urine was normal in [facility]. Pt states Flexeril 10 mg does help the pain and helps her sleep, only has 1 refill remaining. Was unable to get patches from pharmacy. GI - Stomach overall doing okay as long as she watches her diet and uses Lomitil prm. GERD - Stable with use of Prilosec 20 mg once daily. Notes that the Nystatin mouth was does give her heartburn for a couple of minutes but then subsides. Insomnia - Chronic use of Ambien 5 mg once daily prn. Does not use very often. Overall stable on this regimen. Sleep tends to be worse when fibro pain is flared up. KATHARINA/Depression - Stable with use of Cymbalta 30 mg once daily. Fibro - On current regimen of Celebrex 200 mg once daily and Gabapentin 300 mg 1 caps at bedtime. DVT - Chronic DVT, on eliquis 5 mg 1 tab po bid. LANDA - Stable with use of Inderal 40 mg once daily for prevention. COPD - Still smoking. Uses prn Ventolin inhaler. Past medical history, appointments, medications, allergies reviewed. Previous Medical History PAST MEDICAL HISTORY Diagnosis Date Absence of menstruation at age 36 Asthma Seeing Bipolar disorder (HCC) Cerebral degeneration (HCC) Dr. Garrett diagnosed Chronic diarrhea history of Colon polyps COPD (chronic obstructive pulmonary disease) ([facility]) DVT (deep venous thrombosis) ([facility]) right leg- 08/30/2009 after surgery, off coumadin since 2013 Fibromyalgia GERD (gastroesophageal reflux disease) Hyperlipidemia Hypothyroidism Migraine on propanolol Obesity Other osteoporosis Papanicolaou smear of cervix with atypical squamous cells cannot exclude high grade squamous intraepithelial lesion (ASC-H) 2009 Cannot R/O HSIL PMH - PAST MEDICAL HISTORY OF 06/2009 Hepatic flexure adenoma- s/p colectomy Postmenopausal bleeding 2008 Superficial thrombophlebitis Tobacco use 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 Unspecified closed fracture of ankle 12/01/06 right Urge incontinence Previous Surgical History PAST SURGICAL HISTORY Procedure Laterality Date BREAST MILK PROC/STORE/DIST left LEFT HEART CATH,PERCUTANEOUS 03/06/1999 Cardiac cath, L heart- reportedly negative LIG/TRNSXJ FLP TUBE ABDL/VAG APPR UNI/BI Tubal ligation PAST SURGICAL HISTORY OF 12/01/06 right ankle (has pins and plates) PAST SURGICAL HISTORY OF 1987 cysts removed from b/l ovaries PAST SURGICAL HISTORY OF 06/17/2009 Hand-assisted laparoscopic right colectomy PAST SURGICAL HISTORY OF 06/20/2009 Repair of ileocolic anastomosis and formation of a diverting loop ileostomy. PAST SURGICAL HISTORY OF 10/21/2009 Take down of ileostomy TX ECTOPIC W/O SALPING&/OOPHORECTOMY Ectopic right fallopian tube removed Family History FAMILY HISTORY Problem Relation Age of Onset Alcohol/Drug Father alcohol Arthritis Father Blood Disease Brother hepatitis b Cancer Sister uterus Coronary Artery Disease Mother Coronary Artery Disease Father Coronary Artery Disease Maternal Grandmother Coronary Artery Disease Maternal Grandfather Coronary Artery Disease Paternal Grandmother Coronary Artery Disease Paternal Grandfather Diabetes Paternal Grandmother Hypertension Father Hypertension Brother Hypertension Brother Hypertension Sister Psychiatry Other niece bipolar Patient Allergies ALLERGIES Allergen Reactions Asa [Aspirin] Swelling Bee Sting Swelling, Shortness of Breath Reeves Peppers [Other] GI Upset Citalopram Other: See Comments Excessive sweating Parmasean Cheese [* Vomiting Wellbutrin [Bupropi* Rash Current Medications Current Outpatient Medications on File Prior to Visit Medication Sig nystatin (MYCOSTATIN) 100,000 unit/mL suspension Take 5 mL by mouth four times daily for 14 days. 1tsp swish in mouth for several minutes, then swallow (or expectorate) 4 times daily until gone. celecoxib (CELEBREX) 200 mg capsule Take 1 capsule by mouth once daily. diphenhydrAMINE (BANOPHEN) 25 mg capsule Take 1 capsule by mouth every 6 hours as needed. levothyroxine (SYNTHROID) 50 mcg tablet TAKE 1 TABLET BY MOUTH ONCE DAILY ON EMPTY STOMACH FOR THYROID. propranolol (INDERAL) 40 mg tablet TAKE ONE (1) TABLET BY MOUTH ONCE DAILY gabapentin (NEURONTIN) 300 mg capsule Take 1 capsule by mouth daily at bedtime for 90 days. omeprazole (PRILOSEC) 40 mg capsule Take 1 capsule by mouth once daily. apixaban (ELIQUIS) 5 mg tab(s) Take 1 tablet by mouth twice daily. DULoxetine (CYMBALTA) 30 mg capsule TAKE 1 CAPSULE BY MOUTH ONCE DAILY nicotine (NICODERM) 21 mg/24 hr Apply 1 Patch as directed every 24 hours. albuterol HFA (PROVENTIL HFA, VENTOLIN HFA) 90 mcg/actuation inhaler INHALE TWO(2) PUFFS INTO LUNGS EVERY SIX(6) HOURS NEEDED FOR WHEEZING OR FOR SHORTNESS OF BREATH fluticasone (FLONASE) 50 mcg/actuation nasal spray USE 1 SPRAY IN EACH NOSTRIL ONCE DAILY No current facility-administered medications on file prior to visit. Social History Social History Tobacco Use Smoking status: Every Day Packs/day: 3.00 Years: 44.00 Pack years: 132.00 Types: Cigarettes Smokeless tobacco: Never Tobacco comments: sometimes less d/t headaches. Down to 4 cigarettes per day Vaping Use Vaping Use: Never used Substance Use Topics Alcohol use: No Comment: used to drink heavily up to 2004 Drug use: No EXAM: BP 116/78 (BP Site: Left Arm, BP Position: Sitting, BP Cuff Size: Regular Adult) Pulse 72 Resp 16 Wt 65.8 kg (145 lb) BMI 27.40 kg/m General Appearance: Well appearing, alert, in no acute distress, well-hydrated, well nourished.. Oropharynx: Positive findings: moderate oropharyngeal erythema. Neck: Positive findings: cervical adenopathy. Lungs: Lungs clear to auscultation. No wheezing, rhonchi, rales.. Heart: RRR without murmur, gallop, or rubs. No ectopy. Health Maintenance List COVID-19 VACCINE(1) Never done SPIROMETRY Never done ALPHA-1 ANTITRYPSIN DEFICIENCY SCREENING Never done LUNG CANCER SCREENING Never done SHINGRIX VACCINE(1 of 2) Never done PNEUMOCOCCAL(2 - PCV) due on 05/28/2013 DEPRESSION ASSESSMENT Never done PAP TESTING due on 05/09/2021 HPV TESTING due on 05/09/2021 MAMMOGRAM due on 05/10/2021 INFLUENZA(1) due on 11/02/2021 COLORECTAL CANCER SCREENING due on 05/23/2022 ANNUAL PCP TEAM CHRONIC DISEASE VISIT due on 09/18/2022 DIABETES SCREEN due on 01/05/2024 LIPID SCREEN due on 04/23/2024 DTAP,TDAP,TD(2 - Td or Tdap) due on 10/21/2028 HEPATITIS C SCREENING Completed HIV SCREENING Completed Data reviewed Office Visit on 11/28/2021 Component Date Value Strep A (POCT) 11/28/2021 Negative Procedural Control 11/28/2021 Valid Office Visit on 11/03/2021 Component Date Value GLUCOSE UA (POCT) 11/03/2021 Negative BILIRUBIN UA (POCT) 11/03/2021 Negative KETONE UA (POCT) 11/03/2021 Negative SPECIFIC GRAVITY UA (POC* 11/03/2021 <=1.005 (A) HEMOGLOBIN/BLOOD UA (PO* 11/03/2021 Negative PH UA (POCT) 11/03/2021 5.5 PROTEIN UA (POCT) 11/03/2021 Negative UROBILINOGEN UA (POCT) 11/03/2021 0.2 NITRITE UA (POCT) 11/03/2021 Negative LEUKOCYTES UA (POCT) 11/03/2021 Negative COLOR UA (POCT) 11/03/2021 Yellow CLARITY UA (POCT) 11/03/2021 Clear Culture, Urine 11/03/2021 <10,000 CFU/ml Mixed microbiota (A) ASSESSMENT/PLAN: 1. Pharyngitis, unspecified etiology - ICD9: 462, ICD10: J02.9 (primary diagnosis) Augmentin 2. Insomnia, unspecified type - ICD9: 780.52, ICD10: G47.00 - ZOLPIDEM 5 MG TABLET 3. Chronic obstructive pulmonary disease, unspecified COPD type (HCC) - ICD9: 496, ICD10: J44.9 - AMOXICILLIN 875 MG-POTASSIUM CLAVULANATE 125 MG TABLET 4. Cough - ICD9: 786.2, ICD10: R05.9 - AMOXICILLIN 875 MG-POTASSIUM CLAVULANATE 125 MG TABLET Follow up in 1 month for routine check with labs Medical Decision Making: Problems: Low: Acute, uncomplicated illness or injury Risk: Moderate: Drug management Medical Decision Making Level: 3 - Low Edwige Adame MD documented in this encounter [facility] 11-28-2021 History of Presen t illness Narrative This note was created using Rezolveriter. Subjective Emily Feliz is a 61 year old female. HPI Patient presents with sore throat over the past 3 days. She denies congestion or cough. No fever. She states that had not been improving so she came in for evaluation. She is a smoker about a half a pack a day. She also does use an albuterol inhaler. Denies history of thrush. She denies being diabetic. Review of Systems Constitutional: Negative. HENT: Positive for sore throat. Respiratory: Negative. Cardiovascular: Negative. Gastrointestinal: Negative. Genitourinary: Negative. Musculoskeletal: Negative. All other systems reviewed and are negative. PAST MEDICAL HISTORY Diagnosis Date Absence of menstruation at age 36 Asthma Seeing Bipolar disorder (HCC) Cerebral degeneration ([facility]) Dr. Garrett diagnosed Chronic diarrhea history of Colon polyps COPD (chronic obstructive pulmonary disease) ([facility]) DVT (deep venous thrombosis) ([facility]) right leg- 08/30/2009 after surgery, off coumadin since 2013 Fibromyalgia GERD (gastroesophageal reflux disease) Hyperlipidemia Hypothyroidism Migraine on propanolol Obesity Other osteoporosis Papanicolaou smear of cervix with atypical squamous cells cannot exclude high grade squamous intraepithelial lesion (ASC-H) 2008 Cannot R/O HSIL PMH - PAST MEDICAL HISTORY OF 06/2009 Hepatic flexure adenoma- s/p colectomy Postmenopausal bleeding 2008 Superficial thrombophlebitis Tobacco use 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 30 capsule 5 diphenhydrAMINE (BANOPHEN) 25 mg capsule Take 1 capsule by mouth every 6 hours as needed. 120 capsule 11 levothyroxine (SYNTHROID) 50 mcg tablet TAKE 1 TABLET BY MOUTH ONCE DAILY ON EMPTY STOMACH FOR THYROID. 30 tablet 11 propranolol (INDERAL) 40 mg tablet TAKE ONE (1) TABLET BY MOUTH ONCE DAILY 60 tablet 5 gabapentin (NEURONTIN) 300 mg capsule Take 1 capsule by mouth daily at bedtime for 90 days. 90 capsule 1 omeprazole (PRILOSEC) 40 mg capsule Take 1 capsule by mouth once daily. 30 capsule 11 apixaban (ELIQUIS) 5 mg tab(s) Take 1 tablet by mouth twice daily. 60 tablet 5 DULoxetine (CYMBALTA) 30 mg capsule TAKE 1 CAPSULE BY MOUTH ONCE DAILY 30 capsule 11 nicotine (NICODERM) 21 mg/24 hr Apply 1 Patch as directed every 24 hours. 28 Patch 3 albuterol HFA (PROVENTIL HFA, VENTOLIN HFA) 90 mcg/actuation inhaler INHALE TWO(2) PUFFS INTO LUNGS EVERY SIX(6) HOURS NEEDED FOR WHEEZING OR FOR SHORTNESS OF BREATH 8.5 g 11 fluticasone (FLONASE) 50 mcg/actuation nasal spray USE 1 SPRAY IN EACH NOSTRIL ONCE DAILY 1 Each 5 nystatin (MYCOSTATIN) 100,000 unit/mL suspension Take 5 mL by mouth four times daily for 14 days. 1tsp swish in mouth for several minutes, then swallow (or expectorate) 4 times daily until gone. 280 mL 0 No current facility-administered medications for this visit. PAST SURGICAL HISTORY Procedure Laterality Date BREAST MILK PROC/STORE/DIST left LEFT HEART CATH,PERCUTANEOUS 03/06/1999 Cardiac cath, L heart- reportedly negative LIG/TRNSXJ FLP TUBE ABDL/VAG APPR UNI/BI Tubal ligation PAST SURGICAL HISTORY OF 12/01/06 right ankle (has pins and plates) PAST SURGICAL HISTORY OF 1987 cysts removed from b/l ovaries PAST SURGICAL HISTORY OF 06/17/2009 Hand-assisted laparoscopic right colectomy PAST SURGICAL HISTORY OF 06/20/2009 Repair of ileocolic anastomosis and formation of a diverting loop ileostomy. PAST SURGICAL HISTORY OF 10/21/2009 Take down of ileostomy TX ECTOPIC W/O SALPING&/OOPHORECTOMY Ectopic right fallopian tube removed FAMILY HISTORY Problem Relation Age of Onset Alcohol/Drug Father alcohol Arthritis Father Blood Disease Brother hepatitis b Cancer Sister uterus Coronary Artery Disease Mother Coronary Artery Disease Father Coronary Artery Disease Maternal Grandmother Coronary Artery Disease Maternal Grandfather Coronary Artery Disease Paternal Grandmother Coronary Artery Disease Paternal Grandfather Diabetes Paternal Grandmother Hypertension Father Hypertension Brother Hypertension Brother Hypertension Sister Psychiatry Other niece bipolar Social History Tobacco Use Smoking status: Every Day Packs/day: 3.00 Years: 44.00 Pack years: 132.00 Types: Cigarettes Smokeless tobacco: Never Tobacco comments: sometimes less d/t headaches. Down to 4 cigarettes per day Vaping Use Vaping Use: Never used Substance Use Topics Alcohol use: No Comment: used to drink heavily up to 2004 Drug use: No Objective BP 122/78 Pulse 78 Temp 36.2 C (97.1 F) (Tympanic) Resp 18 Wt 68 kg (150 lb) SpO2 97% BMI 28.34 kg/m Physical Exam Vitals reviewed. Constitutional: Appearance: Normal appearance. HENT: Head: Normocephalic and atraumatic. Right Ear: Tympanic membrane, ear canal and external ear normal. Left Ear: Tympanic membrane, ear canal and external ear normal. Mouth/Throat: Mouth: Mucous membranes are moist. Comments: Patient has white film on both tonsils with erythema and mild swelling of the tonsils. Also on the upper soft palate. The tongue also involved. Cardiovascular: Rate and Rhythm: Normal rate and regular rhythm. Heart sounds: Normal heart sounds. Pulmonary: Effort: Pulmonary effort is normal. Breath sounds: Normal breath sounds. Musculoskeletal: Cervical back: Neck supple. Lymphadenopathy: Cervical: No cervical adenopathy. Skin: General: Skin is warm. Neurological: General: No focal deficit present. Mental Status: She is alert and oriented to person, place, and time. Assessment and Plan ASSESSMENT/PLAN: 1. Sore throat - ICD9: 462, ICD10: J02.9 (primary diagnosis) - Alere Strep Test negative, no culture pending - STREP A MOLECULAR (POC) 2. Thrush - ICD9: 112.0, ICD10: B37.0 We will treat with nystatin mouthwash and have her swallow the medication. Recommended if not better in a week to be seen again. She is agreeable with plan. Discussed washing mouth out after using inhaler. Nadia uGtierrez PA-C documented in this encounter [facility] 11-27-2021 Miscellaneous Notes The following approved medication requests have been transmitted electronically. Requested Prescriptions Pending Prescriptions Disp Refills celecoxib (CELEBREX) 200 mg capsule 30 capsule 5 Sig: Take 1 capsule by mouth once daily. diphenhydrAMINE (BANOPHEN) 25 mg capsule 120 capsule 11 Sig: Take 1 capsule by mouth every 6 hours as needed. levothyroxine (SYNTHROID) 50 mcg tablet 30 tablet 11 Sig: TAKE 1 TABLET BY MOUTH ONCE DAILY ON EMPTY STOMACH FOR THYROID. propranolol (INDERAL) 40 mg tablet 60 tablet 5 Sig: TAKE ONE (1) TABLET BY MOUTH ONCE DAILY Trinidad Tapia APRN.MARY Patient has been identified by name and date of : Yes Requested Prescriptions Pending Prescriptions Disp Refills celecoxib (CELEBREX) 200 mg capsule 30 capsule 5 Sig: Take 1 capsule by mouth once daily. diphenhydrAMINE (BANOPHEN) 25 mg capsule 120 capsule 11 Sig: Take 1 capsule by mouth every 6 hours as needed. levothyroxine (SYNTHROID) 50 mcg tablet 30 tablet 11 Sig: TAKE 1 TABLET BY MOUTH ONCE DAILY ON EMPTY STOMACH FOR THYROID. propranolol (INDERAL) 40 mg tablet 60 tablet 5 Sig: TAKE ONE (1) TABLET BY MOUTH ONCE DAILY SANDIE-11/03/21 Labs-01/04/21 NOV-none RX INSTRUCTIONS: Pharmacy initiated this request. No need to notify patient. Katja Chaudhari Pss documented in this encounter [facility] 11-15-2021 Miscellaneous Notes The following approved medication requests have been transmitted electronically. Requested Prescriptions Pending Prescriptions Disp Refills gabapentin (NEURONTIN) 300 mg capsule 90 capsule 1 Sig: Take 1 capsule by mouth daily at bedtime for 90 days. cyclobenzaprine (FLEXERIL) 10 mg tablet 20 tablet 1 Sig: Take 1 tablet by mouth twice daily as needed for muscle spasm for up to 10 days. Jim Meneses APRN.AUTOMATION TEST DEVELOPER Patient asking for refill muscle relaxer had gotten rx from [facility] last week for her back. Please advise Patient has been identified by name and date of : Yes Patient phones for refill(s): Requested Prescriptions Pending Prescriptions Disp Refills gabapentin (NEURONTIN) 300 mg capsule 30 capsule 2 Sig: Take 1 capsule by mouth daily at bedtime for 90 days. cyclobenzaprine (FLEXERIL) 10 mg tablet 14 tablet 0 Sig: Take 1 tablet by mouth twice daily as needed for muscle spasm for up to 7 days. Date of last office visit in primary care: 09/18/2021, no future appt scheduled Last 2 Encounter Wt Readings: Date: Wt: 11/03/2021 64.5 kg (142 lb 3.2 oz) 09/18/2021 64.4 kg (142 lb) Previous labs/tests for medication: Not applicable Please advise. Thank you. Tram Seth LPN documented in this encounter [facility] 11-07-2021 Miscellaneous Notes Patient given results and verbalized understanding of instructions given. [facility] does not do prior authorization paperwork. F/u with pcp if still having symptoms. Pt called and she states was to [facility] and the Pain Patch needs a PA done., PRIOR AUTHORIZATION Medication for Prior Authorization: lidocaine patch Other formulary meds available : NO Insurance Company: [employer] phone number: unknown Patient insurance ID number: [id number] Kaylyn Martin LPN Once completed notify pt. Kaylyn Martin LPN documented in this encounter [facility] 11-07-2021 Miscellaneous Notes Patient notified.Elizabeth Garcia LPN Left message for patient to return call Please inform patient that her urine culture did not reveal growth. Please follow up with PCP. documented in this encounter [facility] 11-03-2021 History of Presen t illness Narrative Images from the original note were not included. Subjective She came in with complaints of back pain. Patient says its pain in the lower middle back, radiates to the left. Patient denies any numbness tingling radiation down her legs. Patient denies any injury at this time. Denies any difficulty urinating or having bowel movement. The history is provided by the patient. No language and literature division chair was used. Review of Systems Constitutional: Negative. Skin: Negative. Objective Physical Exam Constitutional: Appearance: Normal appearance. Pulmonary: Effort: Pulmonary effort is normal. Skin: Comments: Patient is tender in the area on the lower back marked above. When palpated. Neurological: Mental Status: She is alert. PAST MEDICAL HISTORY Diagnosis Date Absence of menstruation at age 36 Asthma Seeing Bipolar disorder (HCC) Cerebral degeneration (HCC) Dr. Garrett diagnosed Chronic diarrhea history of Colon polyps COPD (chronic obstructive pulmonary disease) (HCC) DVT (deep venous thrombosis) (HCC) right leg- 08/30/2009 after surgery, off coumadin since 2013 Fibromyalgia GERD (gastroesophageal reflux disease) Hyperlipidemia Hypothyroidism Migraine on propanolol Obesity Other osteoporosis Papanicolaou smear of cervix with atypical squamous cells cannot exclude high grade squamous intraepithelial lesion (ASC-H) 2008 Cannot R/O HSIL PMH - PAST MEDICAL HISTORY OF 06/2009 Hepatic flexure adenoma- s/p colectomy Postmenopausal bleeding 2008 Superficial thrombophlebitis Tobacco use 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 Unspecified closed fracture of ankle 12/01/06 right Urge incontinence PAST SURGICAL HISTORY Procedure Laterality Date BREAST MILK PROC/STORE/DIST left LEFT HEART CATH,PERCUTANEOUS 03/06/1999 Cardiac cath, L heart- reportedly negative LIG/TRNSXJ FLP TUBE ABDL/VAG APPR UNI/BI Tubal ligation PAST SURGICAL HISTORY OF 12/01/06 right ankle (has pins and plates) PAST SURGICAL HISTORY OF 1987 cysts removed from b/l ovaries PAST SURGICAL HISTORY OF 06/17/2009 Hand-assisted laparoscopic right colectomy PAST SURGICAL HISTORY OF 06/20/2009 Repair of ileocolic anastomosis and formation of a diverting loop ileostomy. PAST SURGICAL HISTORY OF 10/21/2009 Take down of ileostomy TX ECTOPIC W/O SALPING&/OOPHORECTOMY Ectopic right fallopian tube removed ALLERGIES Asa [Aspirin], Bee Sting, Reeves Peppers [Other], Citalopram, Parmasean Cheese [Other], and Wellbutrin [Bupropion Hcl] MEDICATIONS omeprazole (PRILOSEC) 40 mg capsule Take 1 capsule by mouth once daily. apixaban (ELIQUIS) 5 mg tab(s) Take 1 tablet by mouth twice daily. DULoxetine (CYMBALTA) 30 mg capsule TAKE 1 CAPSULE BY MOUTH ONCE DAILY gabapentin (NEURONTIN) 300 mg capsule Take 1 capsule by mouth daily at bedtime for 90 days. nicotine (NICODERM) 21 mg/24 hr Apply 1 Patch as directed every 24 hours. celecoxib (CELEBREX) 200 mg capsule TAKE 1 CAPSULE BY MOUTH ONCE DAILY albuterol HFA (PROVENTIL HFA, VENTOLIN HFA) 90 mcg/actuation inhaler INHALE TWO(2) PUFFS INTO LUNGS EVERY SIX(6) HOURS NEEDED FOR WHEEZING OR FOR SHORTNESS OF BREATH fluticasone (FLONASE) 50 mcg/actuation nasal spray USE 1 SPRAY IN EACH NOSTRIL ONCE DAILY propranolol (INDERAL) 40 mg tablet TAKE ONE (1) TABLET BY MOUTH ONCE DAILY levothyroxine (SYNTHROID) 50 mcg tablet TAKE 1 TABLET BY MOUTH ONCE DAILY ON EMPTY STOMACH FOR THYROID. diphenhydrAMINE (BANOPHEN) 25 mg capsule Take 1 capsule by mouth every 6 hours as needed. FAMILY HISTORY Problem Relation Age of Onset Alcohol/Drug Father alcohol Arthritis Father Blood Disease Brother hepatitis b Cancer Sister uterus Coronary Artery Disease Mother Coronary Artery Disease Father Coronary Artery Disease Maternal Grandmother Coronary Artery Disease Maternal Grandfather Coronary Artery Disease Paternal Grandmother Coronary Artery Disease Paternal Grandfather Diabetes Paternal Grandmother Hypertension Father Hypertension Brother Hypertension Brother Hypertension Sister Psychiatry Other niece bipolar Social History Tobacco Use Smoking status: Every Day Packs/day: 3.00 Years: 44.00 Pack years: 132.00 Types: Cigarettes Smokeless tobacco: Never Tobacco comments: sometimes less d/t headaches. Down to 4 cigarettes per day Vaping Use Vaping Use: Never used Substance Use Topics Alcohol use: No Comment: used to drink heavily up to 2004 Drug use: No ASSESSMENT/PLAN: 1. Urinary frequency - ICD9: 788.41, ICD10: R35.0 (primary diagnosis) - UA DIP, URINE (POC) - URINE CULTURE - XR LUMBAR GENERAL 3V AP/LAT/L5-S1 - XR SACRUM/COCCYX 3V AP/LAT 2. Acute midline low back pain without sciatica - ICD9: 724.2, ICD10: M54.50 * * * * Physician Interpretation * * * * EXAMINATION: XR LUMBAR 3V AP/LAT/L5-S1 HISTORY: Acute lower back pain. Urinary frequency. Negative trauma. TECHNIQUE: XR LUMBAR 3V AP/LAT/L5-S1 Laterality: NOT APPLICABLE Number of different views (projections): 3 M: XB_1 COMPARISON: Comparison is made to prior lumbar spine dated 29 December 2009 RESULT: Counting reference: Lumbosacral junction. For the purposes of this report, L5-S1 is considered the last lumbar-type disc space and L4-5 is considered the level of the iliac crest. AP, lateral and cone-down radiographs of the lumbosacral spine demonstrate scoliotic curvature and mild multilevel degenerative change with vertebral body osteophytosis. The intervertebral disc spaces are well maintained. Mild hypertrophic facet changes at the lower 2 levels where there is accentuated lumbar lordosis. There are no compression fractures and alignment is well maintained. The soft tissues are unremarkable with aortoiliac calcification. IMPRESSION IMPRESSION: Scoliotic curvature and degenerative change. No acute bony process. Cleaner Laboratory Equipment: SHAISTA Transcribe Date/Time: Nov 03 2021 1:46P Dictated by : TRAM ANDRES MD * * * * Physician Interpretation * * * * EXAM TITLE: XR SACRUM/COCCYX 3V AP/LAT EXAM DATE/TIME: 11/03/2021 1:43 PM COMPARISON: None. CLINICAL INDICATION/HISTORY: Pain. TECHNIQUE: AP and lateral views of the sacrum/coccyx are presented. FINDINGS: No acute fractures demonstrated in the sacrum. The visualized other pelvic bones are intact. No subluxation of the coccyx. The bones are somewhat osteopenic. Symmetric bilateral hips. There are vascular calcifications. IMPRESSION IMPRESSION: Unremarkable sacrum/coccyx x-ray. Cleaner Laboratory Equipment: SHAISTA Transcribe Date/Time: Nov 03 2021 2:02P Dictated by : DONTAE TONG MD At this time given a low dose muscle relaxer. Educated about medication making patient tired so no driving or operating heavy machinery on it. Also lidoderm patches. Will follow up with PCP if symptoms seem to worsen. Discussed red flag symptoms at this time patient will watch for any changes. Patient was okay with this care plan. Chitra Cote APRN.MARY documented in this encounter [facility] 09-18-2021 History of Presen t illness Narrative Chief Complaint Patient presents with: F/U 3 Month HPI Emily Feliz is a 61 year old female who presents here today for a 3 month follow up. Pt here today for a 3 month follow up. [facility] this month; has been packing a lot. Pt recently seen for a cough with neck pain. Chest XR completed, this was normal and plan was to continue Zpak and f/u to see if there was improvement. The cough did improve with the antibiotic, although has returned some since then. CXR was normal. Trying to quit smoking. Denies any changes in bowel or urinary issues. Continues to take Lomotil 2.5-0.025 mg QID prn. Still smoking, down to 5 a day or less. She uses Patches. GERD: Stable with use of Prilosec 20 mg once daily. Insomnia: Stable on her current regimen of Ambien 5 mg once daily. Occasionally will have difficulty sleeping with increased fibro pain. KATHARINA/Depression: Overall stable on her current regimen of Cymbalta 30 mg once daily. Fibro: On current regimen of Celebrex 200 mg once daily, Neurontin; stable. COPD: Smoking about 0.5-1 ppd, trying to cut back. Will use Ventolin inhaler prn. DVT: No longer on coumadin, switched to Eliquis 5 mg BID. Doing well on this. LANDA: Stable with use of Inderal 40 mg once daily for LANDA prevention. Past medical history, appointments, medications, allergies reviewed. Previous Medical History PAST MEDICAL HISTORY Diagnosis Date Absence of menstruation at age 36 Asthma Seeing Bipolar disorder (HCC) Cerebral degeneration ([facility]) Dr. Garrett diagnosed Chronic diarrhea history of Colon polyps COPD (chronic obstructive pulmonary disease) ([facility]) DVT (deep venous thrombosis) ([facility]) right leg- 08/30/2009 after surgery, off coumadin since 2013 Fibromyalgia GERD (gastroesophageal reflux disease) Hyperlipidemia Hypothyroidism Migraine on propanolol Obesity Other osteoporosis Papanicolaou smear of cervix with atypical squamous cells cannot exclude high grade squamous intraepithelial lesion (ASC-H) 2009 Cannot R/O HSIL PMH - PAST MEDICAL HISTORY OF 06/2009 Hepatic flexure adenoma- s/p colectomy Postmenopausal bleeding 2008 Superficial thrombophlebitis Tobacco use 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 Unspecified closed fracture of ankle 12/01/06 right Urge incontinence Previous Surgical History PAST SURGICAL HISTORY Procedure Laterality Date BREAST MILK PROC/STORE/DIST left LEFT HEART CATH,PERCUTANEOUS 03/06/1999 Cardiac cath, L heart- reportedly negative LIG/TRNSXJ FLP TUBE ABDL/VAG APPR UNI/BI Tubal ligation PAST SURGICAL HISTORY OF 12/01/06 right ankle (has pins and plates) PAST SURGICAL HISTORY OF 1987 cysts removed from b/l ovaries PAST SURGICAL HISTORY OF 06/17/2009 Hand-assisted laparoscopic right colectomy PAST SURGICAL HISTORY OF 06/20/2009 Repair of ileocolic anastomosis and formation of a diverting loop ileostomy. PAST SURGICAL HISTORY OF 10/21/2009 Take down of ileostomy TX ECTOPIC W/O SALPING&/OOPHORECTOMY Ectopic right fallopian tube removed Family History FAMILY HISTORY Problem Relation Age of Onset Alcohol/Drug Father alcohol Arthritis Father Blood Disease Brother hepatitis b Cancer Sister uterus Coronary Artery Disease Mother Coronary Artery Disease Father Coronary Artery Disease Maternal Grandmother Coronary Artery Disease Maternal Grandfather Coronary Artery Disease Paternal Grandmother Coronary Artery Disease Paternal Grandfather Diabetes Paternal Grandmother Hypertension Father Hypertension Brother Hypertension Brother Hypertension Sister Psychiatry Other niece bipolar Patient Allergies ALLERGIES Allergen Reactions Asa [Aspirin] Swelling Bee Sting Swelling, Shortness of Breath Reeves Peppers [Other] GI Upset Citalopram Other: See Comments Excessive sweating Parmasean Cheese [* Vomiting Wellbutrin [Bupropi* Rash Current Medications Current Outpatient Medications on File Prior to Visit Medication Sig azithromycin (ZITHROMAX Z-ADAMS) 250 mg tablet Take 2 tablets day one, then, 1 tablet daily until gone. apixaban (ELIQUIS) 5 mg tab(s) Take 1 tablet by mouth twice daily. DULoxetine (CYMBALTA) 30 mg capsule TAKE 1 CAPSULE BY MOUTH ONCE DAILY gabapentin (NEURONTIN) 300 mg capsule Take 1 capsule by mouth daily at bedtime for 90 days. nicotine (NICODERM) 21 mg/24 hr Apply 1 Patch as directed every 24 hours. celecoxib (CELEBREX) 200 mg capsule TAKE 1 CAPSULE BY MOUTH ONCE DAILY albuterol HFA (PROVENTIL HFA, VENTOLIN HFA) 90 mcg/actuation inhaler INHALE TWO(2) PUFFS INTO LUNGS EVERY SIX(6) HOURS NEEDED FOR WHEEZING OR FOR SHORTNESS OF BREATH fluticasone (FLONASE) 50 mcg/actuation nasal spray USE 1 SPRAY IN EACH NOSTRIL ONCE DAILY omeprazole (PRILOSEC) 40 mg capsule Take 1 capsule by mouth once daily. fluconazole (DIFLUCAN) 100 mg tablet Take 1 tablet by mouth once daily. propranolol (INDERAL) 40 mg tablet TAKE ONE (1) TABLET BY MOUTH ONCE DAILY levothyroxine (SYNTHROID) 50 mcg tablet TAKE 1 TABLET BY MOUTH ONCE DAILY ON EMPTY STOMACH FOR THYROID. diphenhydrAMINE (BANOPHEN) 25 mg capsule Take 1 capsule by mouth every 6 hours as needed. No current facility-administered medications on file prior to visit. Social History Social History Tobacco Use Smoking status: Current Every Day Smoker Packs/day: 3.00 Years: 44.00 Pack years: 132.00 Types: Cigarettes Smokeless tobacco: Never Used Tobacco comment: sometimes less d/t headaches. Down to 4 cigarettes per day Vaping Use Vaping Use: Never used Substance Use Topics Alcohol use: No Comment: used to drink heavily up to 2004 Drug use: No EXAM: BP 120/80 Pulse 74 Resp 16 Wt 64.4 kg (142 lb) BMI 26.83 kg/m General Appearance: Well appearing, alert, in no acute distress, well-hydrated, well nourished.. Lungs: Mild exp wheeze, diffuse. Heart: RRR without murmur, gallop, or rubs. No ectopy. Health Maintenance List COVID-19 VACCINE(1) Never done SPIROMETRY Never done LUNG CANCER SCREENING Never done SHINGRIX VACCINE(1 of 2) Never done PNEUMOCOCCAL(2 - PCV) due on 05/28/2013 PAP TESTING due on 05/09/2021 HPV TESTING due on 05/09/2021 MAMMOGRAM due on 05/10/2021 DEPRESSION SCREENING due on 07/04/2021 INFLUENZA(1) due on 11/02/2021 COLORECTAL CANCER SCREENING due on 05/23/2022 ANNUAL PCP TEAM CHRONIC DISEASE VISIT due on 09/01/2022 DIABETES SCREEN due on 01/05/2024 LIPID SCREEN due on 04/23/2024 DTAP,TDAP,TD(2 - Td or Tdap) due on 10/21/2028 HEPATITIS C SCREENING Completed HIV SCREENING Completed Data reviewed none ASSESSMENT/PLAN: 1. Fibromyalgia - ICD9: 729.1, ICD10: M79.7 (primary diagnosis) Continue current medications. Check labs in 3 months - COMP METABOLIC PANEL - TSH BLD - CBC 2. Gastroesophageal reflux disease without esophagitis - ICD9: 530.81, ICD10: K21.9 - OMEPRAZOLE 40 MG CAPSULE,DELAYED RELEASE 3. Nausea - ICD9: 787.02, ICD10: R11.0 - OMEPRAZOLE 40 MG CAPSULE,DELAYED RELEASE 4. Chronic obstructive pulmonary disease, unspecified COPD type (HCC) - ICD9: 496, ICD10: J44.9 Smoking cessation 5. Venous thrombosis - ICD9: 453.9, ICD10: I82.90 Continue current medications. 6. Hypothyroidism, unspecified type - ICD9: 244.9, ICD10: E03.9 - Instructed patient on importance of taking on an empty stomach either first thing in the morning or at bedtime. - check TSH in 3 months - TSH BLD - CBC 7. Anxiety with depression - ICD9: 300.4, ICD10: F41.8 Continue current medications. Follow up in 3 months with labs prior I agree with the Chief Complaint, ROS, and Past Histories independently gathered by the clinical intranet support and the remaining scribed note accurately describes my personal service to the patient. Medical Decision Making: Problems: Moderate: 2+ stable chronic illnesses Data: Unique test(s) ordered: 2 Risk: Moderate: Drug management Medical Decision Making Level: 4 - Moderate Edwige Adame MD The documentation for this note was completed by Pebbles Michel Ma acting as scribe for Edwige Adame MD. September 18, 2021 3:31 PM. Pebbles Michel Ma documented in this encounter [facility] 09-01-2021 Miscellaneous Notes Detailed message left for pt. Please notify patient that her chest Xray is normal; go ahead with the Zpak as ordered Edwige Adame MD documented in this encounter [facility] 09-01-2021 History of Presen t illness Narrative Chief Complaint Cough HPI Emily Feliz is a 61 year old female who presents here today for an acute visit. Pt schedule today for a bad cough and neck pain. For the last 2 weeks has had an occasional cough, with blood. Will get spasms of cough that then cause her arms to tingle, neck to hurt. No fever, some SOB. Cough is productive. USing albuterol inhaler a couple of times/day. Has been losing her balance some. She had quit smoking until her brother recently and she started smoking again. Past medical history, appointments, medications, allergies reviewed. Previous Medical History PAST MEDICAL HISTORY Diagnosis Date Absence of menstruation at age 36 Asthma Seeing Bipolar disorder ([facility]) Cerebral degeneration ([facility]) Dr. Garrett diagnosed Chronic diarrhea history of Colon polyps COPD (chronic obstructive pulmonary disease) ([facility]) DVT (deep venous thrombosis) ([facility]) right leg- 08/30/2009 after surgery, off coumadin since 2013 Fibromyalgia GERD (gastroesophageal reflux disease) Hyperlipidemia Hypothyroidism Migraine on propanolol Obesity Other osteoporosis Papanicolaou smear of cervix with atypical squamous cells cannot exclude high grade squamous intraepithelial lesion (ASC-H) 2008 Cannot R/O HSIL PMH - PAST MEDICAL HISTORY OF 06/2009 Hepatic flexure adenoma- s/p colectomy Postmenopausal bleeding 2008 Superficial thrombophlebitis Tobacco use 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 Unspecified closed fracture of ankle 12/01/06 right Urge incontinence Previous Surgical History PAST SURGICAL HISTORY Procedure Laterality Date BREAST MILK PROC/STORE/DIST left LEFT HEART CATH,PERCUTANEOUS 03/06/1999 Cardiac cath, L heart- reportedly negative LIG/TRNSXJ FLP TUBE ABDL/VAG APPR UNI/BI Tubal ligation PAST SURGICAL HISTORY OF 12/01/06 right ankle (has pins and plates) PAST SURGICAL HISTORY OF 1987 cysts removed from b/l ovaries PAST SURGICAL HISTORY OF 06/17/2009 Hand-assisted laparoscopic right colectomy PAST SURGICAL HISTORY OF 06/20/2009 Repair of ileocolic anastomosis and formation of a diverting loop ileostomy. PAST SURGICAL HISTORY OF 10/21/2009 Take down of ileostomy TX ECTOPIC W/O SALPING&/OOPHORECTOMY Ectopic right fallopian tube removed Family History FAMILY HISTORY Problem Relation Age of Onset Alcohol/Drug Father alcohol Arthritis Father Blood Disease Brother hepatitis b Cancer Sister uterus Coronary Artery Disease Mother Coronary Artery Disease Father Coronary Artery Disease Maternal Grandmother Coronary Artery Disease Maternal Grandfather Coronary Artery Disease Paternal Grandmother Coronary Artery Disease Paternal Grandfather Diabetes Paternal Grandmother Hypertension Father Hypertension Brother Hypertension Brother Hypertension Sister Psychiatry Other niece bipolar Patient Allergies ALLERGIES Allergen Reactions Asa [Aspirin] Swelling Bee Sting Swelling, Shortness of Breath Reeves Peppers [Other] GI Upset Citalopram Other: See Comments Excessive sweating Parmasean Cheese [* Vomiting Wellbutrin [Bupropi* Rash Current Medications Current Outpatient Medications on File Prior to Visit Medication Sig DULoxetine (CYMBALTA) 30 mg capsule TAKE 1 CAPSULE BY MOUTH ONCE DAILY gabapentin (NEURONTIN) 300 mg capsule Take 1 capsule by mouth daily at bedtime for 90 days. nicotine (NICODERM) 21 mg/24 hr Apply 1 Patch as directed every 24 hours. celecoxib (CELEBREX) 200 mg capsule TAKE 1 CAPSULE BY MOUTH ONCE DAILY albuterol HFA (PROVENTIL HFA, VENTOLIN HFA) 90 mcg/actuation inhaler INHALE TWO(2) PUFFS INTO LUNGS EVERY SIX(6) HOURS NEEDED FOR WHEEZING OR FOR SHORTNESS OF BREATH warfarin (COUMADIN) 2.5 mg tablet NONE Mon, 2.5 mg all other days or as directed warfarin (COUMADIN) 2.5 mg tablet NONE Mon, 2.5 mg all other days or as directed fluticasone (FLONASE) 50 mcg/actuation nasal spray USE 1 SPRAY IN EACH NOSTRIL ONCE DAILY omeprazole (PRILOSEC) 40 mg capsule Take 1 capsule by mouth once daily. fluconazole (DIFLUCAN) 100 mg tablet Take 1 tablet by mouth once daily. propranolol (INDERAL) 40 mg tablet TAKE ONE (1) TABLET BY MOUTH ONCE DAILY levothyroxine (SYNTHROID) 50 mcg tablet TAKE 1 TABLET BY MOUTH ONCE DAILY ON EMPTY STOMACH FOR THYROID. diphenhydrAMINE (BANOPHEN) 25 mg capsule Take 1 capsule by mouth every 6 hours as needed. No current facility-administered medications on file prior to visit. Social History Social History Tobacco Use Smoking status: Current Every Day Smoker Packs/day: 3.00 Years: 44.00 Pack years: 132.00 Types: Cigarettes Smokeless tobacco: Never Used Tobacco comment: sometimes less d/t headaches. Down to 4 cigarettes per day Vaping Use Vaping Use: Never used Substance Use Topics Alcohol use: No Comment: used to drink heavily up to 2004 Drug use: No EXAM: There were no vitals taken for this visit. General Appearance: Well appearing, alert, in no acute distress, well-hydrated, well nourished.. Lungs: Lungs clear to auscultation. No wheezing, rhonchi, rales.. Heart: RRR without murmur, gallop, or rubs. No ectopy. Health Maintenance List COVID-19 VACCINE(1) Never done SPIROMETRY Never done LUNG CANCER SCREENING Never done SHINGRIX VACCINE(1 of 2) Never done PNEUMOCOCCAL(2 - PCV) due on 05/28/2013 PAP TESTING due on 05/09/2021 HPV TESTING due on 05/09/2021 MAMMOGRAM due on 05/10/2021 DEPRESSION SCREENING due on 07/04/2021 INFLUENZA(Season Ended) due on 11/02/2021 ANNUAL PCP TEAM CHRONIC DISEASE VISIT due on 04/14/2022 COLORECTAL CANCER SCREENING due on 05/23/2022 DIABETES SCREEN due on 01/05/2024 LIPID SCREEN due on 04/23/2024 DTAP,TDAP,TD(2 - Td or Tdap) due on 10/21/2028 HEPATITIS C SCREENING Completed HIV SCREENING Completed Data reviewed None ASSESSMENT/PLAN: 1. Subacute cough - ICD9: 786.2, ICD10: R05.2 (primary diagnosis) Check CXR; use Zpak - XR CHEST 2V FRONTAL/LAT - AZITHROMYCIN 250 MG TABLET 2. Venous thrombosis - ICD9: 453.9, ICD10: I82.90 She would like to change from coumadin to Eliquis as she does not have transportation to come have INR checked - APIXABAN 5 MG TABLET 3. Chronic obstructive pulmonary disease, unspecified COPD type (HCC) - ICD9: 496, ICD10: J44.9 4. Tobacco use disorder - ICD9: 305.1, ICD10: F17.200 - Cessation encouraged. - Physiologic and physical aspects of tobacco addiction as well as strategies for quitting were discussed. - Counseling was given focusing on the harmful effects of this addiction especially given the patient's medical condition(s) which will be worsened because of the chemicals in tobacco. Follow up later this month for routine check; labs prior Medical Decision Making: Problems: Low: Acute, uncomplicated illness or injury Data: Unique test(s) ordered: 1 Risk: Moderate: Drug management Medical Decision Making Level: 3 - Low Edwige Adame MD documented in this encounter [facility] 08-16-2021 Miscellaneous Notes The following approved medication requests have been transmitted electronically. Signed Prescriptions Disp Refills DULoxetine (CYMBALTA) 30 mg capsule 30 capsule 11 Sig: TAKE 1 CAPSULE BY MOUTH ONCE DAILY REJI: No Authorizing Provider: EDWIGE ADAME Ma OK to refill as ordered Edwige Adame MD Last office visit: 04/14/21 F/u scheduled: 09/18/21 Pebbles Michel Ma documented in this encounter [facility] 07-26-2021 Miscellaneous Notes The following approved medication requests have been transmitted electronically. Signed Prescriptions Disp Refills gabapentin (NEURONTIN) 300 mg capsule 30 capsule 2 Sig: Take 1 capsule by mouth daily at bedtime for 90 days. REJI: No Authorizing Provider: EDWIGE ADAME Ma OK to refill as ordered Edwige Adame MD Patient has been identified by name and date of : Yes Pending Prescriptions Disp Refills GABAPENTIN 300 MG CAPSULE 30 capsule 2 Sig: Take 1 capsule by mouth daily at bedtime for 90 days. REJI: No SANDIE-04/14/21 Labs-04/14/21 NOV-09/18/21 med filled 04/14/21 ends 07/13/21 RX INSTRUCTIONS: Pharmacy initiated this request. No need to notify patient. Nanette Altamirano Pss documented in this encounter [facility] documented as of this encounter (statuses as of 04/10/2022) [address] History of Past illness Narrative* Problem Noted Date Resolved Date Abnormal mammogram, unspecified 11/17/2008 04/04/2022 documented as of this encounter (statuses as of 05/04/2022) [address] History of Past illness Narrative* Problem Noted Date Resolved Date Abnormal mammogram, unspecified 11/17/2008 04/04/2022 documented as of this encounter (statuses as of 05/10/2022) [address] History of Past illness Narrative* Problem Noted Date Resolved Date Abnormal mammogram, unspecified 11/17/2008 04/04/2022 documented as of this encounter (statuses as of 05/28/2022) [address] History of Past illness Narrative* Problem Noted Date Resolved Date Abnormal mammogram, unspecified 11/17/2008 04/04/2022 documented as of this encounter (statuses as of 06/08/2022) [address] History of Past illness Narrative* Problem Noted Date Resolved Date Abnormal mammogram, unspecified 11/17/2008 04/04/2022 documented as of this encounter (statuses as of 06/27/2022) [address] History of Past illness Narrative* Problem Noted Date Resolved Date Abnormal mammogram, unspecified 11/17/2008 04/04/2022 documented as of this encounter (statuses as of 07/11/2022) [address] History of Past illness Narrative* Problem Noted Date Diagnosed Date Resolved Date Abnormal mammogram, unspecified 11/17/2008 04/04/2022 documented as of this encounter (statuses as of 10/04/2022) [address] History of Past illness Narrative* Problem Noted Date Diagnosed Date Resolved Date Abnormal mammogram, unspecified 11/17/2008 04/04/2022 documented as of this encounter (statuses as of 10/16/2022) [address] History of Past illness Narrative* Problem Noted Date Diagnosed Date Resolved Date Abnormal mammogram, unspecified 11/17/2008 04/04/2022 documented as of this encounter (statuses as of 11/02/2022) [address] History of Past illness Narrative* Problem Noted Date Diagnosed Date Resolved Date Abnormal mammogram, unspecified 11/17/2008 04/04/2022 documented as of this encounter (statuses as of 11/19/2022) [address] History of Past illness Narrative* Problem Noted Date Diagnosed Date Resolved Date Abnormal mammogram, unspecified 11/17/2008 04/04/2022 documented as of this encounter (statuses as of 11/26/2022) [address] History of Past illness Narrative* Problem Noted Date Diagnosed Date Resolved Date Abnormal mammogram, unspecified 11/17/2008 04/04/2022 documented as of this encounter (statuses as of 01/02/2023) [address] History of Past illness Narrative* Problem Noted Date Diagnosed Date Resolved Date Abnormal mammogram, unspecified 11/17/2008 04/04/2022 documented as of this encounter (statuses as of 01/16/2023) [address] History of Past illness Narrative* Problem Noted Date Diagnosed Date Resolved Date Abnormal mammogram, unspecified 11/17/2008 04/04/2022 documented as of this encounter (statuses as of 01/22/2023) [address] History of Past illness Narrative* Problem Noted Date Diagnosed Date Resolved Date Abnormal mammogram, unspecified 11/17/2008 04/04/2022 documented as of this encounter (statuses as of 01/29/2023) [address] History of Past illness Narrative* Problem Noted Date Diagnosed Date Resolved Date Abnormal mammogram, unspecified 11/17/2008 04/04/2022 documented as of this encounter (statuses as of 01/30/2023) [address] History of Past illness Narrative* Problem Noted Date Diagnosed Date Resolved Date Abnormal mammogram, unspecified 11/17/2008 04/04/2022 documented as of this encounter (statuses as of 02/01/2023) [facility] Subacute cough- Primary Cough Venous thrombosis Embolism and thrombosis of unspecified site Chronic obstructive pulmonary disease, unspecified COPD type (HCC) Tobacco use disorder [facility] Diagnosis Fibromyalgia- Primary Mylagia and myositis, unspecified Gastroesophageal reflux disease without esophagitis Esophageal reflux Nausea Nausea alone Chronic obstructive pulmonary disease, unspecified COPD type (HCC) Venous thrombosis Embolism and thrombosis of unspecified site Hypothyroidism, unspecified type Anxiety with depression [facility] Diagnosis Urinary frequency- Primary Acute midline low back pain without sciatica [facility] Diagnosis Sore throat- Primary Acute pharyngitis Thrush Candidiasis of mouth [facility] Diagnosis Pharyngitis, unspecified etiology- Primary Insomnia, unspecified type Chronic obstructive pulmonary disease, unspecified COPD type (HCC) Cough [facility] Diagnosis Fibromyalgia Mylagia and myositis, unspecified [facility] Diagnosis Hypothyroidism, unspecified type- Primary Venous thrombosis Embolism and thrombosis of unspecified site Intractable headache, unspecified chronicity pattern, unspecified headache type Fibromyalgia Mylagia and myositis, unspecified Hyperlipidemia, unspecified hyperlipidemia type Chronic obstructive pulmonary disease, unspecified COPD type (HCC) Tobacco use disorder Gastroesophageal reflux disease without esophagitis Esophageal reflux Chronic insomnia Insomnia, unspecified [facility] Diagnosis Fibromyalgia Mylagia and myositis, unspecified Gastroesophageal reflux disease without esophagitis Esophageal reflux Nausea Nausea alone Anxiety with depression Insomnia, unspecified type [facility] Diagnosis Chronic obstructive pulmonary disease, unspecified COPD type (HCC) [facility] Diagnosis Carpal tunnel syndrome, right- Primary Carpal tunnel syndrome [facility] Diagnosis Neck mass- Primary Swelling, mass, or lump in head and neck [facility] Diagnosis Enlarged lymph node in neck- Primary [facility] Diagnosis Serum potassium elevated- Primary Hyperpotassemia [facility]* Diagnosis Viral URI- Primary Acute upper respiratory infections of unspecified site [facility] Diagnosis Asthma with COPD with exacerbation (HCC)- Primary Chronic obstructive asthma with exacerbation documented in this encounter [facility] note* Diagnosis Hypothyroidism, unspecified type- Primary Chronic obstructive pulmonary disease, unspecified COPD type (HCC) Fibromyalgia Mylagia and myositis, unspecified Anxiety with depression Insomnia, unspecified type Soreness of tongue Glossodynia documented in this encounter [facility] note* Diagnosis Insomnia, unspecified type Chest pain Chest pain, unspecified documented in this encounter [facility] note* Diagnosis Fibromyalgia Mylagia and myositis, unspecified documented in this encounter [facility] note* Diagnosis Encounter for screening mammogram for breast cancer documented in this encounter [facility] note* Diagnosis Chronic obstructive pulmonary disease, unspecified COPD type (HCC) documented in this encounter [facility] note* Diagnosis Fibromyalgia- Primary Mylagia and myositis, unspecified Insomnia, unspecified type Anxiety with depression Gastroesophageal reflux disease without esophagitis Esophageal reflux Chronic diarrhea Diarrhea Venous thrombosis Embolism and thrombosis of unspecified site Hypothyroidism, unspecified type Intractable headache, unspecified chronicity pattern, unspecified headache type Chronic obstructive pulmonary disease, unspecified COPD type (HCC) Tobacco use disorder Screening for colon cancer Special screening for malignant neoplasms, colon Chronic deep vein thrombosis (DVT) of proximal vein of lower extremity, unspecified laterality (HCC) Chronic kidney disease, stage 3a (HCC) Degenerative disease of nervous system, unspecified (HCC) Bipolar affective disorder, remission status unspecified (HCC) documented in this encounter [facility] note* Diagnosis Chronic obstructive pulmonary disease, unspecified COPD type (HCC) documented in this encounter [facility] note* Diagnosis Insomnia, unspecified type- Primary Hypothyroidism, unspecified type Fibromyalgia Mylagia and myositis, unspecified Anxiety with depression Chronic diarrhea Diarrhea Gastroesophageal reflux disease without esophagitis Esophageal reflux Intractable headache, unspecified chronicity pattern, unspecified headache type Hyperlipidemia, unspecified hyperlipidemia type Chronic kidney disease, stage 3a (HCC) Chronic deep vein thrombosis (DVT) of proximal vein of lower extremity, unspecified laterality (HCC) Degenerative disease of nervous system, unspecified (HCC) Chronic obstructive pulmonary disease, unspecified COPD type (HCC) Tobacco use disorder documented in this encounter [facility] note* Diagnosis Sinobronchitis- Primary Unspecified sinusitis (chronic) COPD (chronic obstructive pulmonary disease) with acute bronchitis (HCC) Obstructive chronic bronchitis with acute bronchitis documented in this encounter [facility] note* Diagnosis Venous thrombosis Embolism and thrombosis of unspecified site Insomnia, unspecified type Chronic diarrhea Diarrhea documented in this encounter [facility] note* Diagnosis Fibromyalgia- Primary Mylagia and myositis, unspecified Encounter for screening mammogram for malignant neoplasm of breast Other screening mammogram Screening for cervical cancer Screening for malignant neoplasm of the cervix Need for vaccination Need for prophylactic vaccination and inoculation against unspecified single disease Hyperlipidemia, unspecified hyperlipidemia type Intractable headache, unspecified chronicity pattern, unspecified headache type Chronic insomnia Insomnia, unspecified Mild intermittent asthma without complication Unspecified asthma Tobacco use disorder Chronic obstructive pulmonary disease, unspecified COPD type (HCC) Gastroesophageal reflux disease without esophagitis Esophageal reflux Hypothyroidism, unspecified type Chronic deep vein thrombosis (DVT) of proximal vein of lower extremity, unspecified laterality (HCC) Bipolar affective disorder, remission status unspecified (HCC) Acute bronchitis, unspecified organism documented in this encounter [facility] note* Diagnosis Gastroesophageal reflux disease without esophagitis Esophageal reflux Nausea Nausea alone Anxiety with depression documented in this encounter [facility] note* Diagnosis Encounter for screening mammogram for malignant neoplasm of breast Other screening mammogram [facility] Diagnostic Procedure Only (Urgent) - Closed Specialty Diagnoses / Procedures Referred By Chantal baker Referred To Contact US IMAGING Diagnoses Neck mass Procedures US HEAD/NECK SOFT TISSUE OTHER US SOFT TISSUE HEAD & NECK REAL TIME IMGE Chitra Whatley APRN.CNP [address] [place] [address] Us Imaging Referral ID Status Reason Start Date Expiration Date V isits Requested Visits Authorized [id number] Closed Auto-Generate d Referral 02/22/2022 03/24/2023 1 1 [facility] Diagnostic Procedure Only (Routine) - Pending Review Specialty Diagnoses / Procedures Referred By Chantal baker Referred To Contact [facility] IMAGING Diagnoses Encounter for screening mammogram for breast cancer Procedures IVETH SCREENING SCREENING MAMMOGRAPHY BI 2-VIEW BREAST INC Edwige Baca MD [address] [place] [address] [facility] [address] [place] [address] Referral ID Status Reason Start Date Expiration Date Visits Requested Visits Authorized [id number] Pending Review Auto-Generat ed Referral 05/23/2022 06/22/2023 1 1 [facility] for visit Narrative* Diagnostic Procedure Only (Urgent) - Closed Specialty Diagnoses / Procedures Referred By Contac t Referred To Contact US IMAGING Diagnoses Neck mass Procedures US HEAD/NECK SOFT TISSUE OTHER US SOFT TISSUE HEAD & NECK REAL TIME IMGE DOCM Chitra Cote APRN.AUTOMATION TEST DEVELOPER [address] [place] [address] Us Imaging Referral ID Status Reason Start Date Expiration Date V isits Requested Visits Authorized [id number] Closed Auto-Generate d Referral 02/22/2022 03/24/2023 1 1 [facility] for visit Narrative* Diagnostic Procedure Only (Routine) - Closed Specialty Diagnoses / Procedures Referred By Contac t Referred To Contact BR IMAGING Diagnoses Encounter for screening mammogram for malignant neoplasm of breast Procedures IVETH SCREENING SCREENING MAMMOGRAPHY BI 2-VIEW BREAST INC CAD Edwige Adame MD [address] [place] [address] [facility] [address] [place] [address] Referral ID Status Reason Start Date Expiration Date V isits Requested Visits Authorized [id number] Closed Auto-Generate d Referral 01/21/2023 02/20/2024 1 1 [facility] Summary Purpose Family History No Family History Records FoundNo Family History Records FoundNo Family History Records Found Advance Directives No Advanced Directives Records FoundNo Advanced Directives Records FoundNo Advanced Directives Records Found Reason for Referral Specialty Diagnoses / Procedures Referred By Contac t Referred To Contact Chitra Cote APRN.AUTOMATION TEST DEVELOPER [address] [place] [address] Referral ID Status Reason Start Date Expiration Date V isits Requested Visits Authorized [id number] Pending Review 1 1 Specialty Diagnoses / Procedures Referred By Contac t Referred To Contact XR IMAGING Diagnoses Acute midline low back pain without sciatica Procedures XR SACRUM/COCCYX 3V AP/LAT RADEX SACRUM & COCCYX MINIMUM 2 VIEWS Chitra Cote, [employer] DEVELOPER.AUTOMATION TEST DEVELOPER [address] [place] [address] Xr Imaging Referral ID Status Reason Start Date Expiration Date V isits Requested Visits Authorized [id number] Closed Auto-Generate d Referral 11/03/2021 12/03/2022 1 1 Specialty Diagnoses / Procedures Referred By Contac t Referred To Contact XR IMAGING Diagnoses Acute midline low back pain without sciatica Procedures XR LUMBAR GENERAL 3V AP/LAT/L5-S1 RADEX SPINE LUMBOSACRAL 2/3 VIEWS Chitra Cote, [employer] DEVELOPER.AUTOMATION TEST DEVELOPER [address] [place] [address] Xr Imaging Referral ID Status Reason Start Date Expiration Date V isits Requested Visits Authorized [id number] Closed Auto-Generate d Referral 11/03/2021 12/03/2022 1 1 Specialty Diagnoses / Procedures Referred By Contac t Referred To Contact Orthopedics Diagnoses Carpal tunnel syndrome, right Procedures CONSULT TO ORTHOPAEDICS OFFICE/OUTPATIENT [facility] 60-74 MINUTES Edwige Adame MD [address] [place] [address] Referral ID Status Reason Start Date Expiration Date Visits Requested Visits Authorized [id number] Authorized PCP Requested Referral 2 02/13/2023 1 1 Specialty Diagnoses / Procedures Referred By Contac t Referred To Contact General Surgery Diagnoses Enlarged lymph node in neck Procedures CONSULT TO GENERAL SURGERY OFFICE/OUTPATIENT [facility] 60-74 MINUTES Jim Meneses, [employer] DEVELOPER.AUTOMATION TEST DEVELOPER [address] [place] [address] Referral ID Status Reason Start Date Expiration Date Visits Requested Visits Authorized [id number] Authorized PCP Requested Referral 2 02/27/2023 1 1 Specialty Diagnoses / Procedures Referred By Contac t Referred To Contact Gynecology Diagnoses Screening for cervical cancer Procedures CONSULT TO GYNECOLOGY OFFICE/OUTPATIENT [facility] 60-74 MINUTES Edwige Adame MD [address] [place] [address] Referral ID Status Reason Start Date Expiration Date Visits Requested Visits Authorized [id number] Authorized PCP Requested Referral Auto-Generate d Referral 3 01/21/2024 1 1 Specialty Diagnoses / Procedures Referred By Chantal t Referred To Contact BR IMAGING Diagnoses Encounter for screening mammogram for malignant neoplasm of breast Procedures IVETH SCREENING SCREENING MAMMOGRAPHY BI 2-VIEW BREAST INC Edwige Baca MD [address] [place] [address] [facility] [address] [place] [address] Referral ID Status Reason Start Date Expiration Date Visits Requested Visits Authorized [id number] Authorized Auto-Generat ed Referral 3 02/20/2024 1 1 Additional Source Comments INFORMATION SOURCE (unrecogn ized section and content) DATE CREATED AUTHOR AUTHOR'S ORGANIZ ATION 02/25/2022 [facility] DATE CREATED AUTHOR AUTHOR'S ORGANIZ ATION 02/03/2023 [facility] Source Comments (unrecognize d section and content) In the event this informatio n is protected by the Federal Confidentiality of Alcohol and Drug Abuse Patient Records regulations: The Federal rules restrict any use of the information to criminally investigate or prosecute any alcohol or drug abuse patient.[facility] the event this information is protected by the Federal Confidentiality of Alcohol and Drug Abuse Patient Records regulations: The Federal rules restrict any use of the information to criminally investigate or prosecute any alcohol or drug abuse patient.[facility] the event this information is protected by the Federal Confidentiality of Alcohol and Drug Abuse Patient Records regulations: The Federal rules restrict any use of the information to criminally investigate or prosecute any alcohol or drug abuse patient.[facility] the event this information is protected by the Federal Confidentiality of Alcohol and Drug Abuse Patient Records regulations: The Federal rules restrict any use of the information to criminally investigate or prosecute any alcohol or drug abuse patient.[facility] the event this information is protected by the Federal Confidentiality of Alcohol and Drug Abuse Patient Records regulations: The Federal rules restrict any use of the information to criminally investigate or prosecute any alcohol or drug abuse patient.[facility] System[facility] the event this information is protected by the Federal Confidentiality of Alcohol and Drug Abuse Patient Records regulations: The Federal rules restrict any use of the information to criminally investigate or prosecute any alcohol or drug abuse patient.[facility] the event this information is protected by the Federal Confidentiality of Alcohol and Drug Abuse Patient Records regulations: The Federal rules restrict any use of the information to criminally investigate or prosecute any alcohol or drug abuse patient.[facility] System[facility] the event this information is protected by the Federal Confidentiality of Alcohol and Drug Abuse Patient Records regulations: The Federal rules restrict any use of the information to criminally investigate or prosecute any alcohol or drug abuse patient.[facility] the event this information is protected by the Federal Confidentiality of Alcohol and Drug Abuse Patient Records regulations: The Federal rules restrict any use of the information to criminally investigate or prosecute any alcohol or drug abuse patient.[facility] the event this information is protected by the Federal Confidentiality of Alcohol and Drug Abuse Patient Records regulations: The Federal rules restrict any use of the information to criminally investigate or prosecute any alcohol or drug abuse patient.[facility] System[facility] the event this information is protected by the Federal Confidentiality of Alcohol and Drug Abuse Patient Records regulations: The Federal rules restrict any use of the information to criminally investigate or prosecute any alcohol or drug abuse patient.[facility] System[facility] the event this information is protected by the Federal Confidentiality of Alcohol and Drug Abuse Patient Records regulations: The Federal rules restrict any use of the information to criminally investigate or prosecute any alcohol or drug abuse patient.[facility] System[facility] the event this information is protected by the Federal Confidentiality of Alcohol and Drug Abuse Patient Records regulations: The Federal rules restrict any use of the information to criminally investigate or prosecute any alcohol or drug abuse patient.[facility] System[facility] the event this information is protected by the Federal Confidentiality of Alcohol and Drug Abuse Patient Records regulations: The Federal rules restrict any use of the information to criminally investigate or prosecute any alcohol or drug abuse patient.[facility] System[facility] the event this information is protected by the Federal Confidentiality of Alcohol and Drug Abuse Patient Records regulations: The Federal rules restrict any use of the information to criminally investigate or prosecute any alcohol or drug abuse patient.[facility] SystemIn the event this information is protected by the Federal Confidentiality of Alcohol and Drug Abuse Patient Records regulations: The Federal rules restrict any use of the information to criminally investigate or prosecute any alcohol or drug abuse patient.[facility] SystemIn the event this information is protected by the Federal Confidentiality of Alcohol and Drug Abuse Patient Records regulations: The Federal rules restrict any use of the information to criminally investigate or prosecute any alcohol or drug abuse patient.[facility] SystemIn the event this information is protected by the Federal Confidentiality of Alcohol and Drug Abuse Patient Records regulations: The Federal rules restrict any use of the information to criminally investigate or prosecute any alcohol or drug abuse patient.[facility] SystemIn the event this information is protected by the Federal Confidentiality of Alcohol and Drug Abuse Patient Records regulations: The Federal rules restrict any use of the information to criminally investigate or prosecute any alcohol or drug abuse patient.[facility] SystemIn the event this information is protected by the Federal Confidentiality of Alcohol and Drug Abuse Patient Records regulations: The Federal rules restrict any use of the information to criminally investigate or prosecute any alcohol or drug abuse patient.[facility] SystemIn the event this information is protected by the Federal Confidentiality of Alcohol and Drug Abuse Patient Records regulations: The Federal rules restrict any use of the information to criminally investigate or prosecute any alcohol or drug abuse patient.[facility] SystemIn the event this information is protected by the Federal Confidentiality of Alcohol and Drug Abuse Patient Records regulations: The Federal rules restrict any use of the information to criminally investigate or prosecute any alcohol or drug abuse patient.[facility] SystemIn the event this information is protected by the Federal Confidentiality of Alcohol and Drug Abuse Patient Records regulations: The Federal rules restrict any use of the information to criminally investigate or prosecute any alcohol or drug abuse patient.[facility] SystemIn the event this information is protected by the Federal Confidentiality of Alcohol and Drug Abuse Patient Records regulations: The Federal rules restrict any use of the information to criminally investigate or prosecute any alcohol or drug abuse patient.[facility] SystemIn the event this information is protected by the Federal Confidentiality of Alcohol and Drug Abuse Patient Records regulations: The Federal rules restrict any use of the information to criminally investigate or prosecute any alcohol or drug abuse patient.[facility] SystemIn the event this information is protected by the Federal Confidentiality of Alcohol and Drug Abuse Patient Records regulations: The Federal rules restrict any use of the information to criminally investigate or prosecute any alcohol or drug abuse patient.[facility] SystemIn the event this information is protected by the Federal Confidentiality of Alcohol and Drug Abuse Patient Records regulations: The Federal rules restrict any use of the information to criminally investigate or prosecute any alcohol or drug abuse patient.[facility] SystemIn the event this information is protected by the Federal Confidentiality of Alcohol and Drug Abuse Patient Records regulations: The Federal rules restrict any use of the information to criminally investigate or prosecute any alcohol or drug abuse patient.[facility] SystemIn the event this information is protected by the Federal Confidentiality of Alcohol and Drug Abuse Patient Records regulations: The Federal rules restrict any use of the information to criminally investigate or prosecute any alcohol or drug abuse patient.[facility] SystemIn the event this information is protected by the Federal Confidentiality of Alcohol and Drug Abuse Patient Records regulations: The Federal rules restrict any use of the information to criminally investigate or prosecute any alcohol or drug abuse patient.[facility] SystemIn the event this information is protected by the Federal Confidentiality of Alcohol and Drug Abuse Patient Records regulations: The Federal rules restrict any use of the information to criminally investigate or prosecute any alcohol or drug abuse patient.[facility] SystemIn the event this information is protected by the Federal Confidentiality of Alcohol and Drug Abuse Patient Records regulations: The Federal rules restrict any use of the information to criminally investigate or prosecute any alcohol or drug abuse patient.[facility] SystemIn the event this information is protected by the Federal Confidentiality of Alcohol and Drug Abuse Patient Records regulations: The Federal rules restrict any use of the information to criminally investigate or prosecute any alcohol or drug abuse patient.[facility] SystemIn the event this information is protected by the Federal Confidentiality of Alcohol and Drug Abuse Patient Records regulations: The Federal rules restrict any use of the information to criminally investigate or prosecute any alcohol or drug abuse patient.[facility] SystemIn the event this information is protected by the Federal Confidentiality of Alcohol and Drug Abuse Patient Records regulations: The Federal rules restrict any use of the information to criminally investigate or prosecute any alcohol or drug abuse patient.[facility] SystemIn the event this information is protected by the Federal Confidentiality of Alcohol and Drug Abuse Patient Records regulations: The Federal rules restrict any use of the information to criminally investigate or prosecute any alcohol or drug abuse patient.[facility] SystemIn the event this information is protected by the Federal Confidentiality of Alcohol and Drug Abuse Patient Records regulations: The Federal rules restrict any use of the information to criminally investigate or prosecute any alcohol or drug abuse patient.[facility] SystemIn the event this information is protected by the Federal Confidentiality of Alcohol and Drug Abuse Patient Records regulations: The Federal rules restrict any use of the information to criminally investigate or prosecute any alcohol or drug abuse patient.[facility] SystemIn the event this information is protected by the Federal Confidentiality of Alcohol and Drug Abuse Patient Records regulations: The Federal rules restrict any use of the information to criminally investigate or prosecute any alcohol or drug abuse patient.[facility] SystemIn the event this information is protected by the Federal Confidentiality of Alcohol and Drug Abuse Patient Records regulations: The Federal rules restrict any use of the information to criminally investigate or prosecute any alcohol or drug abuse patient.[facility] SystemIn the event this information is protected by the Federal Confidentiality of Alcohol and Drug Abuse Patient Records regulations: The Federal rules restrict any use of the information to criminally investigate or prosecute any alcohol or drug abuse patient.[facility] SystemIn the event this information is protected by the Federal Confidentiality of Alcohol and Drug Abuse Patient Records regulations: The Federal rules restrict any use of the information to criminally investigate or prosecute any alcohol or drug abuse patient.[facility] Reason for Visit (unrecogniz ed section and content) Reason Comments Refill Request Reason Comments Results Reason Comments Cough 3 weeks Shortness of Breath Wheezing Reason Comments F/U 3 Month Reason Comments Urinary Frequency Frequency, lower petron[place] k pain x 1 week Reason Comments Prior authorization needed Reason Comments Sore Throat ST x 3 days Reason Comments Follow Up Reason Onset Date Comments Refill Request 11/24/2021 Reason Onset Date Comments Refill Request 11/15/2021 Refill Request 12/12/2021 Reason Comments F/U 1 month Reason Onset Date Comments Refill Request 02/12/2022 Reason Comments Patient Update Orders Appointment Reason Comments lump on side of right neck Noticed it 4 days ago and now it is very sore Reason Comments Follow Up Left side face swell ing Reason Comments Results Labs Reason Comments appt issue Reason Comments Illness Reason Comments Cough Cough, chest congest ion, ST and drainage x 10 days Reason Comments F/U 3 Month Reason Onset Date Comments Refill Request 05/04/2022 Reason Comments Patient Update Reason Comments Sinus Problem sinus pressure, drai nage, productive cough x 2 weeks Reason Onset Date Comments Refill Request 11/26/2022 Reason Comments Patient Request Reason Onset Date Comments Refill Request 01/15/2023 Reason Comments F/U 3 Month Reason Onset Date Comments Refill Request Refill Request 01/28/2023 Care Teams (unrecognized sec tion and content) Director Career Relationship Specialty Start Date End Date Edwige Adame MD [address] [place] [address] PCP - General Family Practice 12/14/15 Director Career Relationship Specialty Start Date End Date Edwige Adame MD [address] [place] [address] PCP - General Family Practice 12/14/15 Director Career Relationship Specialty Start Date End Date Edwige Adame MD [address] [place] [address] PCP - General Family Practice 12/14/15 Director Career Relationship Specialty Start Date End Date Edwige Adame MD [facility] [place] [address] PCP - General Family Practice 12/14/15 Director Career Relationship Specialty Start Date End Date Edwige Adame MD [address] [place] [address] PCP - General Family Medicine 12/14/15 Director Career Relationship Specialty Start Date End Date Edwige Adame MD [address] [place] [address] PCP - General Family Medicine 12/14/15 Director Career Relationship Specialty Start Date End Date Edwige Adame MD [address] [place] [address] PCP - General Family Medicine 12/14/15 Director Career Relationship Specialty Start Date End Date Edwige Adame MD [address] [place] [address] PCP - General Family Medicine 12/14/15 Director Career Relationship Specialty Start Date End Date Edwige Adame MD [address] [place] [address] PCP - General Family Medicine 12/14/15 Director Career Relationship Specialty Start Date End Date Edwige Adame MD [address] [place] [address] PCP - General Family Medicine 12/14/15 Director Career Relationship Specialty Start Date End Date Edwige Adame MD [address] [place] [address] PCP - General Family Medicine 12/14/15 Director Career Relationship Specialty Start Date End Date Edwige Adame MD [address] [place] [address] PCP - General Family Medicine 12/14/15 Director Career Relationship Specialty Start Date End Date Edwige Adame MD [address] [place] [address] PCP - General Family Medicine 12/14/15 Director Career Relationship Specialty Start Date End Date Edwige Adame MD [address] [place] [address] PCP - General Family Medicine 12/14/15 Director Career Relationship Specialty Start Date End Date Edwige Adame MD [address] [place] [address] PCP - General Family Medicine 12/14/15 Director Career Relationship Specialty Start Date End Date Edwige Adame MD [address] [place] [address] PCP - General Family Medicine 12/14/15 Director Career Relationship Specialty Start Date End Date Edwige Adame MD [address] [place] [address] PCP - General Family Medicine 12/14/15 Director Career Relationship Specialty Start Date End Date Edwige Adame MD [address] [place] [address] PCP - General Family Medicine 12/14/15 Director Career Relationship Specialty Start Date End Date Edwige Adame MD [address] [place] [address] PCP - General Family Medicine 12/14/15 Director Career Relationship Specialty Start Date End Date Edwige Adame MD [address] [place] [address] PCP - General Family Medicine 12/14/15 Director Career Relationship Specialty Start Date End Date Edwige Adame MD [address] [place] [address] PCP - General Family Medicine 12/14/15 Director Career Relationship Specialty Start Date End Date Edwige Adame MD [address] [place] [address] PCP - General Family Medicine 12/14/15 Director Career Relationship Specialty Start Date End Date Edwige Adame MD [address] [place] [address] PCP - General Family Medicine 12/14/15 Director Career Relationship Specialty Start Date End Date Edwige Adame MD [address] [place] [address] PCP - General Family Medicine 12/14/15 Director Career Relationship Specialty Start Date End Date Edwige Adame MD [address] [place] [address] PCP - General Family Medicine 12/14/15 Director Career Relationship Specialty Start Date End Date Edwige Adame MD [address] [place] [address] PCP - General Family Medicine 12/14/15 Director Career Relationship Specialty Start Date End Date Edwige Adame MD [address] [place] [address] PCP - General Family Medicine 12/14/15 Director Career Relationship Specialty Start Date End Date Edwige Adame MD [address] [place] [address] PCP - General Family Medicine 12/14/15 Director Career Relationship Specialty Start Date End Date Edwige Adame MD [address] [place] [address] PCP - General Family Medicine 12/14/15 Director Career Relationship Specialty Start Date End Date Edwige Adame MD [address] [place] [address] PCP - General Family Medicine 12/14/15 Director Career Relationship Specialty Start Date End Date Edwige Adame MD [address] [place] [address] PCP - General Family Medicine 12/14/15 FOR RECORDS PERTAINING TO PATIENTS WHO ARE OR HAVE BEEN ENROLLED IN A CHEMICAL DEPENDENCY/SUBSTANCEABUSE PROGRAM, SOME INFORMATION MAY BE OMITTED. This clinical summary was aggregated from multiple sources. Caution should be exercised in using it in the provision of clinical care. This summary normalizes information from multiple sources, and as a consequence, information in this document may materially change the coding, format and clinical context of patient data. In addition, data may be omitted in some cases. CLINICAL DECISIONS SHOULD BE BASED ON THE PRIMARY CLINICAL RECORDS. [facility] [employer] [facility]. provides no warranty or guarantee of the accuracy or completeness of information in this document.
== END 2023-03-19 16:08 | disposition home or self-care (01) ==
PROVIDERS: Emergency Provider Emergency Medicine; PCP Family Medicine; Referring Provider Emergency Medicine; Visit Provider Emergency Medicine
DX: D68.9 Coagulation defect, unspecified (principal); J44.9 Chronic obstructive pulmonary disease, unspecified; R04.2 Hemoptysis; F17.210 Nicotine dependence, cigarettes, uncomplicated; R05.9 Cough, unspecified; Z86.718 Personal history of other venous thrombosis and embolism; Z79.01 Long term (current) use of anticoagulants; I10 Essential (primary) hypertension; E03.9 Hypothyroidism, unspecified; Z79.899 Other long term (current) drug therapy; F32.A Depression, unspecified
CPT/HCPCS: 71275; 80048; 84484; 85025; 93005; 94640; 96360; 99285; J7040; Q9967